=== PATIENT | male | born 1935 | race Caucasian/White ===

== ENCOUNTER → 2018-01-20 14:05 | Outpatient (CLI) | payer MEDICARE, OTHER, SELFPAY ==
[2018-01-20 14:44] LABS: Blood Urea Nitrogen 24 mg/dL (9-20); Calcium 9.1 mg/dL (8.4-10.2); Carbon Dioxide 34 mmol/L (22-32); Chloride 104 mmol/L (98-107); Estimated Glomerular Filt Rate > 60.0 mL/min (>60); Glucose 103 mg/dL (80-110); HEMOLYSIS < 15 (0-50); Potassium 4.6 mmol/L (3.4-5.1); Sodium 146 mmol/L (137-145)
== END ==
PROVIDERS: PCP Family Medicine; Visit Provider Internal Medicine Cardiovascular Disease
DX: I25.5 Ischemic cardiomyopathy (principal)
CPT/HCPCS: 36415; 80048

== ENCOUNTER → 2018-11-22 11:10 | Outpatient (CLI) | payer MEDICARE, OTHER, SELFPAY ==
[2018-11-22 12:17] LABS: Hematocrit 43.6 % (41-53); Hemoglobin 14.7 g/dL (13.5-17.5); Mean Corpuscular HGB Conc 33.8 % (30-36); Mean Corpuscular Hemoglobin 30.5 PG (26-34); Mean Corpuscular Volume 90.3 fL (80-100); Platelet Count 175 X10^3/uL (150-400); Red Blood Cell Count 4.83 X10^6/uL (4.5-5.9); Red Cell Distribution Width 14.8 % (11.6-14.8); White Blood Cell Count 6.4 X10^3/uL (4.5-11.0)
[2018-11-22 12:30] LABS: Alanine Aminotransferase 20 IU/L (21-72); Albumin 4.5 g/dL (3.5-5.0); Albumin Globulin Ratio 1.4 (1.0-2.8); Alkaline Phosphatase 66 U/L (38-126); Aspartate Aminotransferase 66 IU/L (17-59); BUN Creatinine Ratio 22.7 (6-22); Blood Urea Nitrogen 25 mg/dL (9-20); Calcium 9.3 mg/dL (8.4-10.2); Carbon Dioxide 33 mmol/L (22-32); Chloride 102 mmol/L (98-107); Cholesterol 118 mg/dL (140-199); Estimated Glomerular Filt Rate > 60.0 mL/min (>60); Globulin 3.2 g/dL (1.7-4.1); Glucose 90 mg/dL (80-110); HDL Cholesterol 34 mg/dL (40-60); HEMOLYSIS 36 (0-50); LDL Cholesterol Calculated 63 mg/dL (<100); Sodium 143 mmol/L (137-145); Total Protein 7.7 g/dL (6.3-8.2); Triglycerides 107 mg/dL (35-150)
[2018-11-22 12:32] LABS: Potassium 5.8 mmol/L (3.4-5.1)
[2018-11-22 13:03] LABS: Thyroid Stimulating Hormone 3.37 uIU/mL (0.47-4.68)
[2018-11-22 15:58] LABS: Neutrophils Absolute Manual 3520 /uL (3000-5900); Total Cells Counted 100
[2018-11-22 15:59] LABS: RBC Morphology Normal Morphology
== END ==
PROVIDERS: PCP Family Medicine; Visit Provider Family Medicine
DX: M79.604 Pain in right leg (principal); G62.9 Polyneuropathy, unspecified; M79.605 Pain in left leg; Z13.220 Encounter for screening for lipoid disorders; Z13.29 Encounter for screening for other suspected endocrine disorder
CPT/HCPCS: 36415; 80053; 80061; 84443; 85025

== ENCOUNTER → 2018-11-29 10:35 | Outpatient (CLI) | payer MEDICARE, OTHER, SELFPAY ==
--- NOTE | 2018-11-29 10:40 | DI.US.S_ITS ---
PROCEDURE: US ARTERIAL DUPLEX LE BI INDICATIONS: BILATERAL LEG PAIN, NEUROPATHY TECHNIQUE: Color and pulse Doppler interrogation was performed of both lower extremity arterial systems, with image documentation. COMPARISON: None. FINDINGS: Right lower extremity: Common femoral artery: 153 cm/sec, with biphasic flow. Deep femoral artery: 103 cm/sec, with biphasic flow. Proximal superficial femoral artery: 81 cm/sec, with triphasic flow. Mid superficial femoral artery: 137 cm/sec, with triphasic flow. Distal superficial femoral artery: 56 cm/sec, with triphasic flow. Popliteal artery: 53 cm/sec, with triphasic flow. Posterior tibial artery: 419 cm/sec, with monophasic flow. Anterior tibial artery/dorsalis pedis: 57 cm/sec, with monophasic flow. Jamil-scale imaging description: Moderate scattered plaque. Left lower extremity: Common femoral artery: 111 cm/sec, with biphasic flow. Deep femoral artery: 81 cm/sec, with biphasic flow. Proximal superficial femoral artery: 79 cm/sec, with biphasic flow. Mid superficial femoral artery: 94 cm/sec, with biphasic flow. Distal superficial femoral artery: 87 cm/sec, with biphasic flow. Popliteal artery: 390 cm/sec, with biphasic flow. Posterior tibial artery: 183 cm/sec, with biphasic flow. Anterior tibial artery/dorsalis pedis: 46 cm/sec, with monophasic flow. Jamil-scale imaging description: Moderate scattered plaque. IMPRESSION: 1. 20-49% stenosis involving the midright superficial femoral artery. 2. 50-90% stenosis involving the mid right posterior tibial artery 3. 50-99% stenosis involving the distal left popliteal artery near the trifurcation. Dictated by: Domenic Menezes [facility] Interpreted: Jose Arriola MD on 11/29/2018 at 13:45 Approved by: Jose Arriola M.D. on 11/29/2018 at 16:34
== END ==
PROVIDERS: PCP Family Medicine; Visit Provider Family Medicine
DX: I70.201 Unspecified atherosclerosis of native arteries of extremities, right leg (principal); I70.202 Unspecified atherosclerosis of native arteries of extremities, left leg
CPT/HCPCS: 93925

== ENCOUNTER → 2018-12-11 12:06 | Outpatient (CLI) | payer MEDICARE, OTHER, SELFPAY ==
[2018-12-11 13:01] LABS: Blood Urea Nitrogen 27 mg/dL (9-20); Calcium 9.5 mg/dL (8.4-10.2); Carbon Dioxide 34 mmol/L (22-32); Chloride 103 mmol/L (98-107); Estimated Glomerular Filt Rate > 60.0 mL/min (>60); Glucose 97 mg/dL (80-110); HEMOLYSIS < 15 (0-50); Potassium 4.9 mmol/L (3.4-5.1); Sodium 147 mmol/L (137-145)
== END ==
PROVIDERS: PCP Family Medicine; Visit Provider Family Medicine
DX: E87.5 Hyperkalemia (principal)
CPT/HCPCS: 36415; 80048

== ENCOUNTER → 2019-01-01 11:19 | Outpatient (CLI) | payer MEDICARE, OTHER, SELFPAY ==
[2019-01-01 12:57] LABS: Blood Urea Nitrogen 25 mg/dL (9-20); Calcium 9.5 mg/dL (8.4-10.2); Carbon Dioxide 35 mmol/L (22-32); Chloride 100 mmol/L (98-107); Estimated Glomerular Filt Rate > 60.0 mL/min (>60); Glucose 100 mg/dL (80-110); HEMOLYSIS 28 (0-50); Potassium 4.7 mmol/L (3.4-5.1); Sodium 145 mmol/L (137-145)
== END ==
PROVIDERS: PCP Family Medicine; Visit Provider Hospitalist
DX: I25.5 Ischemic cardiomyopathy (principal); I47.2 Ventricular tachycardia; I25.10 Atherosclerotic heart disease of native coronary artery without angina pectoris
CPT/HCPCS: 36415; 80048

== ENCOUNTER → 2019-04-09 11:43 | Outpatient (CLI) | payer MEDICARE, OTHER, SELFPAY ==
--- NOTE | 2019-04-09 11:45 | DI.US.S_ITS ---
PROCEDURE: US PERIPH VENOUS LOW EXTREM RT INDICATIONS: R LEG SWELLING TECHNIQUE: Real-time imaging, as well as color and pulse Doppler interrogation, were performed of the lower extremity deep veins from the inguinal ligament to the popliteal fossa. COMPARISON: None. FINDINGS: The common femoral, femoral and popliteal veins are normally compressible, and free of intraluminal thrombus. Color and pulse Doppler demonstrate normal phasic intraluminal flow. There is normal augmentation response to distal compression maneuver. The greater saphenous vein not well seen. Right groin fluid collection measuring 6.6 x 5.3 x 11.3 cm, estimated volume of 205 cc. No surrounding hyperemia identified. IMPRESSION: 1. No right lower extremity DVT. 2. Large right groin fluid collection. Etiology uncertain. Dictated by: Dipak Mijares M.D. on 04/09/2019 at 13:43 Approved by: Dipak Mijares M.D. on 04/09/2019 at 13:48
== END ==
PROVIDERS: PCP Family Medicine; Visit Provider Family Medicine
DX: I73.9 Peripheral vascular disease, unspecified (principal); L03.115 Cellulitis of right lower limb; M79.89 Other specified soft tissue disorders
CPT/HCPCS: 93971

== ENCOUNTER → 2019-04-10 12:00 | Outpatient (CLI) | payer MEDICARE, OTHER, SELFPAY ==
[2019-04-10 12:35] LABS: BUN Creatinine Ratio 25.6 (6-22); Blood Urea Nitrogen 23 mg/dL (9-20); Estimated Glomerular Filt Rate > 60.0 mL/min (>60)
--- NOTE | 2019-04-10 13:09 | DI.CT.S_ITS ---
PROCEDURE: CT ABDOMEN PELVIS W CON INDICATIONS: Right groin pain, leg swelling. Rule Out: Inguinal Hernia, Ascites, Large Lymph Node TECHNIQUE: After the administration of intravenous contrast, 5 mm thick sections acquired from the diaphragm to the symphysis. 5 mm coronal and sagittal reformats were acquired. For radiation dose reduction, the following was used: automated exposure control, adjustment of mA and/or kV according to patient size. COMPARISON: [facility], , US PERIP VENOUS LOW EXTREM RT, 04/09/2019, 12:18. FINDINGS: Image quality: There is metallic streak artifact from patient's bilateral hip prostheses. ABDOMEN: There is mild dependent atelectasis. A small hiatal hernia is present. Heart size is mildly enlarged. An AICD lead is noted extending into the right ventricle. Solid organs: Evaluation of the liver demonstrates no focal hepatic lesions. There are a few small dependent filling defects within the gallbladder compatible with gallstones. No gallbladder wall thickening or pericholecystic fluid. Biliary system is non-dilated. Within the body of the pancreas, there is a small oval cystic lesion measuring approximately 7 mm on series 2 image 20. No peripancreatic fat stranding or fluid collections. No main pancreatic duct dilatation. The spleen is normal in size. No adrenal nodules. There is moderate left hydronephrosis with a transition at the ureteropelvic junction. The left ureter is nondistended. No right hydronephrosis. Bilateral renal cysts are demonstrated. Peritoneum and bowel: Bowel loops demonstrate normal wall thickness and caliber. The aorta is normal in caliber. There is colonic diverticulosis. There is mild segmental wall thickening in the sigmoid colon suggestive of a mild colitis possibly related to diverticulitis. No free fluid or free air with evaluation in the pelvis limited by streak artifact. Nodes and vessels: No retroperitoneal or mesenteric adenopathy by size criteria. Aorta and inferior vena cava are normal in size. Evaluation of the venous structures is limited due to the phase of imaging but there is heterogeneity within the right common and superficial femoral veins. Miscellaneous: There is a septated loculated fluid collection in the right hemipelvis tracking along the iliopsoas tendon measuring up to approximately 7.6 x 5.3 x 11.7 cm. Findings compatible with iliopsoas bursitis. No ventral hernias. PELVIS: Genitourinary: Bladder wall thickness is normal. Miscellaneous: No inguinal hernias or adenopathy. Bones: No suspicious bony lesions. No vertebral body compression fractures. Bilateral hip prostheses are demonstrated limiting evaluation T2 streak artifact. There is a nonspecific right hip joint effusion. IMPRESSION: 1. Large loculated fluid collection in the right hemipelvis tracking along the iliopsoas tendon compatible with iliopsoas bursitis. 2. Heterogeneous appearance of the right common and superficial femoral veins. No evidence of deep venous thrombosis identified on the recent ultrasound. Recommend clinical followup. 3. Bilateral hip prostheses limiting evaluation due to streak artifact. A nonspecific right hip joint effusion is noted. 4. Colonic diverticulosis. Mild segmental wall thickening in the sigmoid colon is suggestive of a mild colitis and may reflect sequelae of diverticulitis. 5. Cholelithiasis without CT evidence of cholecystitis. 6. Moderate left hydronephrosis with a transition at the UPJ. No associated obstructing stone identified. 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 Dictated by: Miguel Guzman M.D. on 04/10/2019 at 13:29 Approved by: Miguel Guzman M.D. on 04/10/2019 at 13:44
== END ==
PROVIDERS: PCP Family Medicine; Visit Provider Family Medicine
DX: R60.0 Localized edema (principal); L03.115 Cellulitis of right lower limb; M79.606 Pain in leg, unspecified; I87.2 Venous insufficiency (chronic) (peripheral); N28.1 Cyst of kidney, acquired; N13.30 Unspecified hydronephrosis; K57.90 Diverticulosis of intestine, part unspecified, without perforation or abscess without bleeding; M25.451 Effusion, right hip; K80.20 Calculus of gallbladder without cholecystitis without obstruction; Z96.643 Presence of artificial hip joint, bilateral
CPT/HCPCS: 36415; 74177; 82565; 84520; Q9967

== ENCOUNTER → 2019-04-13 09:47 | Outpatient (CLI) | payer MEDICARE, OTHER, SELFPAY ==
[2019-04-13 10:25] LABS: Add Manual Diff / Slide Review NO; Basophils Absolute Auto 0 /uL (0-100); Basophils Percent Auto 0.6 % (0-2); Eosinophils Absolute Auto 300 /uL (0-450); Eosinophils Percent Auto 3.9 % (2-4); Hematocrit 43.7 % (41-53); Hemoglobin 14.9 g/dL (13.5-17.5); Lymphocytes Absolute Auto 1400 /uL (1100-4500); Mean Corpuscular Hemoglobin 30.6 PG (26-34); Mean Corpuscular Volume 90.1 fL (80-100); Monocytes Absolute Auto 700 /uL (0-900); Monocytes Percent Auto 9.4 % (3-14); Neutrophils Absolute Auto 5100 /uL (1500-7000); Neutrophils Percent Auto 68.1 % (50-75); Platelet Count 197 X10^3/uL (150-400); Red Blood Cell Count 4.86 X10^6/uL (4.5-5.9); Red Cell Distribution Width 14.4 % (11.6-14.8); White Blood Cell Count 7.5 X10^3/uL (4.5-11.0)
[2019-04-13 10:53] LABS: Erythrocyte Sedimentation Rate 18 MM/HR (0-15)
[2019-04-13 11:06] LABS: C-Reactive Protein Quant < 0.5 mg/dL (<1.0)
[2019-04-15 16:01] LABS: Chromium, Plasma 1.9 mcg/L (< 1.3)
== END ==
PROVIDERS: PCP Family Medicine; Visit Provider Orthopaedic Surgery
DX: Z96.643 Presence of artificial hip joint, bilateral (principal)
CPT/HCPCS: 36415; 82495; 83018; 85025; 85651; 86140

== ENCOUNTER → 2019-05-14 10:31 | Outpatient (CLI) | payer MEDICARE, OTHER, SELFPAY ==
[2019-05-14 10:48] LABS: Bacteria Urine None Seen; RBC Urine None Seen (0-5/HPF); WBC Urine None Seen (0-5/HPF)
[2019-05-14 11:13] LABS: Appearance Urine UA CLEAR; Bilirubin Urine UA NEGATIVE (NEGATIVE); Color Urine UA YELLOW; Glucose Urine UA NEGATIVE (Negative); Ketones Urine UA NEGATIVE (NEGATIVE); Leukocyte Esterase Urine UA NEGATIVE (NEGATIVE); Nitrite Urine UA NEGATIVE (Negative); Occult Blood Urine UA NEGATIVE (Negative); Protein Urine UA NEGATIVE (Negative); Urobilinogen Urine UA 0.2 E.U./dL (0.2)
[2019-05-14 11:15] LABS: Add Manual Diff / Slide Review NO; Basophils Absolute Auto 100 /uL (0-100); Basophils Percent Auto 0.8 % (0-2); Eosinophils Absolute Auto 300 /uL (0-450); Eosinophils Percent Auto 3.9 % (2-4); Hematocrit 41.7 % (41-53); Hemoglobin 13.8 g/dL (13.5-17.5); Lymphocytes Absolute Auto 1400 /uL (1100-4500); Lymphocytes Percent Auto 20.2 % (25-40); Mean Corpuscular HGB Conc 33.2 % (30-36); Mean Corpuscular Hemoglobin 29.8 PG (26-34); Mean Corpuscular Volume 89.6 fL (80-100); Monocytes Absolute Auto 700 /uL (0-900); Monocytes Percent Auto 10.7 % (3-14); Neutrophils Absolute Auto 4400 /uL (1500-7000); Neutrophils Percent Auto 64.4 % (50-75); Platelet Count 310 X10^3/uL (150-400); Red Blood Cell Count 4.65 X10^6/uL (4.5-5.9); Red Cell Distribution Width 14.1 % (11.6-14.8); White Blood Cell Count 6.8 X10^3/uL (4.5-11.0)
[2019-05-14 11:21] LABS: Culture Indicated Urine Cult Not Indicated; Urine Comments Microscopic Normal
[2019-05-14 11:29] LABS: BUN Creatinine Ratio 24.4 (6-22); Blood Urea Nitrogen 22 mg/dL (9-20); Calcium 9.3 mg/dL (8.4-10.2); Carbon Dioxide 30 mmol/L (22-32); Chloride 103 mmol/L (98-107); Estimated Glomerular Filt Rate > 60.0 mL/min (>60); Glucose 107 mg/dL (80-110); HEMOLYSIS < 15 (0-50); Sodium 142 mmol/L (137-145)
== END ==
PROVIDERS: PCP Family Medicine; Referring Provider Orthopaedic Surgery; Visit Provider Orthopaedic Surgery
DX: Z01.818 Encounter for other preprocedural examination (principal); Z01.812 Encounter for preprocedural laboratory examination; R73.9 Hyperglycemia, unspecified; N39.0 Urinary tract infection, site not specified
CPT/HCPCS: 36415; 80048; 81001; 83036; 85025; 93005

== ENCOUNTER 2019-05-25 05:54 | Inpatient (IN) | payer MEDICARE, OTHER, SELFPAY ==
[2019-05-22 14:22] VITALS: BMI 25.7
[2019-05-25] VITALS (13 sets, daily range): BP systolic 117–174; BP diastolic 47–80; PULSE 45–63; RESP 12–16; TEMP 35.7–36.6; O2SAT 94–99; BMI 24.1
--- NOTE | 2019-05-25 | PATH_ITS ---
[facility] Accession Number: [id number] . 01 Material submitted: . PART A: hip - RIGHT HIP, SOFT TISSUE PART B: body - EXPLANTS FROM RIGHT HIP . 01 Clinical history: . B: *DO NOT DISPOSE* . 02 Diagnosis: A. Right Hip, Soft Tissue, Excision: Fibrous tissue and skeletal muscle with mild chronic inflammation. No active inflammation or foreign material identified. . B. Explants From Right Hip, Removal: Explanted hardware. Gross description only. MRV 05/29/2019 1333 Local . 02 Electronically signed: . Malcom Marr MD, PhD, Pathologist NPI- [id number] . 01 Gross description: . (A) Received in formalin, labeled right hip, soft tissue, is a piece of kinsey-duckworth, rubbery soft tissue (3.5 x 3.5 x 0.5 cm). The resection margin is inked blue. Prior Authorization Nurse serial section submitted in cassette A1. (B) Received in formalin, labeled right hip explant, do not dispose, is a silver-colored metal ball and socket joint replacement (5.0 x 5.0 x 4.0 cm) with the following numbers imprinted on it: [id number], [id number], 40 x 60, [id number], and a partially scratched-out number 12/scratched-out numbers followed by 0 plus 50. No tissue is present; therefore, no cassettes are submitted. The specimen is for gross description only. ([id number]) /FRAron 05/26/2019 0838 Local . 02 Pathologist provided ICD-10: Z96.641, T84.010A . 02 CPT . 544835, 453039 Performed at: 01 [facility] [address] [place] [address], [place], [place] [id number] MD Miguel Sales MD Phone: [phone] Performed at: [address] [facility] [id number] [place], [place] [id number] MD Tatum Manzano MD Phone: [phone]
--- NOTE | 2019-05-25 06:59 | DI.RAD.S_ITS ---
PROCEDURE: XR HIP W PEL IF DONE RT 2V INDICATIONS: post op TECHNIQUE: 2 views of the hip were acquired. COMPARISON: [facility], CR, XR PELVIS WITH BILATERAL LATERAL HIPS, 04/23/2019, 14:42. [facility], RF, HIP INJECTION, 05/04/2019, 14:44. [facility], CR, HIP 2V LEFT, 07/18/2009, 15:07. FINDINGS: Bones: No fractures or dislocations. No suspicious bony lesions. The visualized pelvic ring appears intact. Soft tissues: No suspicious soft tissue calcifications or masses. IMPRESSION: Normal alignment after bilateral total hip arthroplasty procedures, previously present bilaterally. Dictated by: Sameer Valdez M.D. on 05/25/2019 at 12:07 Approved by: Sameer Valdez M.D. on 05/25/2019 at 12:09
[2019-05-25] MEDS: ACETAMINOPHEN 325 MG TABLET 975 MG PO (07:10)
[2019-05-25] MEDS: CELECOXIB 200 MG CAPSULE PO (07:10)
[2019-05-25] MEDS: PREGABALIN 75 MG CAPSULE PO (07:10)
[2019-05-25] MEDS: VANCOMYCIN 1,000 MG/200 ML PIGGYBACK 200 MG IV (07:20)
[2019-05-25] MEDS: LACTATED RINGERS 1,000 ML 42 ML IV (07:28)
--- NOTE | 2019-05-25 07:50 | PM.PREOP ---
Pre-operative Note Interval Note History & Physical reviewed/Exam performed by Physician: Yes Changes to H&P: No
--- NOTE | 2019-05-25 07:51 | PM.OP.1 ---
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 Post-op diagnosis: same Procedure & Clinicians Procedure: Revision right total hip arthroplasty acetabular Same procedure as scheduled: Yes Indications: The patient has a history of a right total hip arthroplasty which was done back in 2008 with a metal on metal articulation. He has about a 6 month history of marked progressive increased swelling in the right leg and had a CT scan which showed a significant fluid collection anterior to his right hip. 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 The risks, benefits and alternatives to surgery were discussed with the patient prior to proceeding. Risks discussed included, but were not limited to, failure to relieve pain, leg length discrepancy, dislocation, stiffness, infection, nerve damage, deep venous thrombosis, pulmonary embolism, stroke, coma, heart attack, permanent paralysis and , as well as the potential need for eventual revision of the prosthetic. Surgeon: Neda Jackson [employer] Technician: Valorie Hansen Anesthesia Type: General and Spinal Operative Notes Findings: Significant slightly brownish stained fluid in the right hip, marked thickening of the synovium and significant synovial pseudo tuber anterior to the hip, no obvious significant destruction of the abductors, good stability, minimal trunnion wear Closure Type: primary Prosthetic devices, grafts, tissues, transplants, or devices: Depuy pedicle 60 x 40 mm polyethylene liner, ceramic 40 by 8.5 mm femoral head Applied: drain(s) Estimated Blood Loss (mL): 250 Blood products transfused: none Procedure in detail: The patient was seen in the pre-operative area, where the patient identified the right hip as the operative site and this was marked with my initials. The patient received pre-operative antibiotics and was taken to the operating room and placed on the operative table in the left lateral decubitus position after satisfactory anesthesia. A dispatcher refinery out was performed. The right leg was prepared from the ankle to the iliac crest with ChloroPrep in the usual fashion and draped through sterile drapes. The hip was approached through an approximately 20 cm incision centered over the greater trochanter and curving gently posteriorly as it went proximally. This was carried sharply to the fascia nancie, which was divided and retracted with a self retaining retractor. The trochanteric bursa was excised with care being taken to avoid the sciatic nerve, which was identified and protected throughout the case. The short external rotators were incised and the capsulomuscular flap was raised and tagged for later repair. The hip was dislocated. There was a large fluid collection in the right hip. There was marked thickening of the synovium and inflammatory tissue in the capsule. Fluid was sent for Gram stain culture and sensitivity and a cell count. The femoral head was removed with a tamp. There was minimal wear along the trunnion. The trunnion was carefully cleaned. There was no evidence of femoral loosening. Retractors were placed around the femur. Capsule and inflammatory tissue in pseudotumor was removed from around the femoral component as well as around the acetabulum. Retractors were placed to expose the acetabulum. The metal liner was loosened from the acetabular shell by impacting the shell. The liner was removed without difficulty. The acetabular shell was carefully checked was noted to be stable in the bone. The base of the acetabular liner was carefully cleaned. Anteriorly there was significant fluid which was carefully removed with a section as well as clamps 3 is to grab the lining of the pseudotumor and tissue was carefully removed from the anterior aspect of the acetabulum and sent for culture, PCR as well as pathology. A trial reduction with a neutral 40 x 60 liner and both +5 and a +8 5 head showed acceptable leg length, good range of motion no posterior impingement and The patient was stable in the position of sleep, of squatting, and could be put through a range of motion with 45 degrees internal rotation without dislocation. At 90 degrees flexion, internal rotation to 70 was possible before dislocation. This was felt to be satisfactory and the appropriate components were opened, and the trials were removed. The acetabular liner was impacted into position. A ceramic +8.5 head was selected and meticulously inserted. The hip was meticulously irrigated with normal saline. The acetabulum was cleared of all material and the hip relocated one final time. The capsulomuscular flap was then repaired to the greater trochanter though an awl hole using the tag sutures. The short external rotators were repaired with a nonabsorbable suture. A deep drain was placed and brought out anteriorly. Vancomycin powder was carefully placed both anteriorly in the pseudotumor as well as some in the joint and deep to the fascia as well as superficially. The fascia nancie was closed with Vicryl. The subcutaneous layer was closed with barbed sutures and SteriStrips. An Aquacel Ag dressing was applied and the patient was taken to recovery having tolerated the procedure well. Complications: none Post-operative Condition: stable Disposition: Acute Care Plan for aftercare: The patient will be maintained on a standard total hip replacement protocol with weight bearing as tolerated and posterior hip precautions. The patient will receive Aspirin and sequential compression devices for DVT prophylaxis. The patient will be discharged home when safe for the home environment.
--- NOTE | 2019-05-25 08:00 | SUR.PREOP ---
BUSINESS ANALYST: Pt's family took his clothes home as well as his cane.
[2019-05-25] MEDS: CEFAZOLIN 2 GM/100 ML FROZ.PIGGY IV ×3 (08:25→23:48)
--- NOTE | 2019-05-25 09:02 | SUR.OPER ---
Lateral on padded OR bed. Gel axillary roll. Arms secured on padded armboard with pillow supporting top arm. Padded hip positioner braces x4 - anterior and posterior chest and pelvis. Additional gel pad used anterior pelvis. Gel pad under bottom leg from knee to foot and secured with tape over sheet.
[2019-05-25] MEDS: BUPIVACAINE LIPOSOME 266 MG/20 ML VIAL INJ (09:22)
[2019-05-25] MEDS: TRANEXAMIC ACID 1,000 MG VIAL 1000 MG INJ ×2 (09:22→10:10)
[2019-05-25] MEDS: VANCOMYCIN 1,000 MG VIAL 1000 MG TOP (09:58)
[2019-05-25] MEDS: BUPIVACAINE 0.25% W/ EPI 30 ML VIAL 60 ML INJ (10:01)
[2019-05-25 10:37] LABS: Body Fluid Red Blood Cells 32691 /uL; Body Fluid Tot Nucleated Cells 3268 /uL
[2019-05-25 10:52] LABS: Body Fluid Appearance CLOUDY; Body Fluid Clotted? NO CLOTS PRESENT; Body Fluid Color BROWN; Mononuclear WBC Body Fluid 100 %; Polynuclear WBC Body Fluid 0 %
--- NOTE | 2019-05-25 12:27 | PC.NURSE ---
Pt to room from PACU via bed. Family at the bedside. Pt awake and oriented x 3. Pt oriented to room, call light, bed controls, and tv controls. SCD's on and running. HV intact and unclamped. Bed alarm on for safety and Pt agrees to call for assistance as needed and to not get up without assistance.
[2019-05-25] MEDS: IBUPROFEN 400 MG TABLET PO ×3 (12:34→20:33)
[2019-05-25] MEDS: LACTATED RINGERS 1,000 ML 125 ML IV ×2 (12:34→22:27)
[2019-05-25] MEDS: ACETAMINOPHEN 325 MG TABLET 650 MG PO ×2 (15:07→20:34)
--- NOTE | 2019-05-25 15:11 | PT.IIE ---
Current Diagnoses Broken internal right hip prosthesis, initial encounter (05/25/19) Presence of artificial hip joint, bilateral (05/25/19) Surgery Performed Operation Date: 05/25/19 07:45 Actual Procedures p Total Hip Arthroplasty Revision(Right) - Neda Jackson MD Surgical History (Last Updated 05/22/19 @ 14:35 by Samantha George RN) AICD (automatic cardioverter/defibrillator) present (Acute ~04/2012) History of carpal tunnel release (Resolved 01/2006) History of Mohs surgery for squamous cell carcinoma of skin (Resolved 2013) Hx of bilateral hip replacements (Resolved 2008) Hx of cardiac catheterization (Acute ~1996) Hx of cardiac catheterization (Acute 07/06/11) Hx of cataract surgery (Resolved) Hx of coronary artery bypass graft (Resolved) S/P CABG x 2 (Acute ~2011) Medical History (Last Updated 05/22/19 @ 14:35 by Samantha George RN) Actinic keratosis (Resolved) Atrial fibrillation (Resolved) Basal cell carcinoma (Resolved) Cardiomyopathy (Chronic) Carpal tunnel syndrome (Resolved) Cataracts, bilateral (Resolved) Coronary artery disease (Chronic) Cyst, nasal sinus (Resolved 1971) 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) Erectile dysfunction (Chronic) 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) Glaucoma (Acute) Heart murmur (Acute) History of placement of internal cardiac defibrillator (Resolved 04/2012) Hyperlipemia (Chronic) Hypertension (Chronic) Ischemic cardiomyopathy (Acute) Macular degeneration (Chronic) Myocardial infarction (Resolved 1996) Non-sustained ventricular tachycardia (Acute) Recurrent ventricular tachycardia (Acute) Squamous cell carcinoma (Resolved) Vitreous floaters of right eye (Chronic) Physical Therapy Inpatient Evaluation/Re-Eval M1 PT/OT-IP Prior Functional Status Start: 05/25/19 16:23 Freq: NEEDED Status: Active Protocol: Document 05/25/19 15:11 AB (Rec: 05/25/19 16:35 AB [id number]) Medical Review Prior Functional Status Medical History Reviewed No Communication able to make needs known but with slight confusion and has increase reaction time needed to complete tasks. Mobility and Gait pt stated that he is modified independent with all mobilities and ambulation using SPC Social History Household Members spouse Living Arrangements House Number of Floors (Floors) One Floor Number of Stairs To Enter/Railing? no steps to enter Home Environment High Toilet,Walk in Shower Home Equipment Front Wheel Walker,Four Wheel Walker,Straight Cane,Grab Bars In Shower M2 PT-IP Current Condition Start: 05/25/19 16:23 Freq: NEEDED Status: Active Protocol: Document 05/25/19 15:11 AB (Rec: 05/25/19 16:35 AB [id number]) Physical Therapy Current Condition Current Condition Evaluation Date 05/25/19 Treatment Diagnosis s/p R MONICA posterior approach; difficulty in walking Onset Date 05/25/2019 Precautions Posterior Hip Precautions No Hip Flexion > 90 degrees,No Hip Internal Rotation,No Hip Adduction Weight Bearing Status Weight Bearing Status Weight Bear as Tolerated M3 PT-IP Subjective Start: 05/25/19 16:23 Freq: NEEDED Status: Active Protocol: Document 05/25/19 15:11 AB (Rec: 05/25/19 16:35 AB [id number]) Subjective Physical Therapy Visit Type Type Initial Evaluation Visit Start Time 15:11 Visit Stop Time 16:00 Total Visit Minutes 49 Number of RN IV THERAPY Visits 0 Physical Therapy Visit Comments Patient Comments agreeable to do PT Therapy Pain Assessment Pain Present Pain Present Denied Pain M4 PT-IP Mobility and Gait Start: 05/25/19 16:23 Freq: NEEDED Status: Active Protocol: Document 05/25/19 15:11 AB (Rec: 05/25/19 16:35 AB [id number]) PT-Bed Mobility Assessment Supine to Sit Supine to Sit Moderate Assistance,1 Person Assistance Sit to Supine Sit to Supine Maximum Assistance,1 Person Assistance PT-Transfer Assessment Sit to and From Stand Sit to and from Stand Maximum Assistance,2 Person Assistance,Use of Upper Extremities Equipment Transfer Assistive Device Gait Belt,Front Wheeled Walker Orthotic/Prosthetic Devices or Brace: No Comments Mobility Comments reviewed R posterior hip precautions with pt. pt requires max cues to remember and to understand hip precautions. completed supine to sit mod A and max cues. stated that his RLE is numb but has chronic numbness on RLE. required max A x 2 for sit to stand. attempted stepping but pt with (+) R knee buckling despite stabilization provided. pt assisted back to sit down max A x 2 and max cues. completed sit to supine max A and max cues. postiioned in bed. call light and table placed within reach. Gait Assessment Comments Gait Comments unable at this time with R knee buckling PT-Balance Assessment Sitting Balance and Reactions Static Sitting Balance Ability Good Dynamic Sitting Balance Ability Good Standing Balance and Reactions Static Standing Balance Ability Poor Dynamic Standing Balance Ability Poor Device Used FWW M5 PT-IP Objective Assessments Start: 05/25/19 16:23 Freq: NEEDED Status: Active Protocol: Document 05/25/19 15:11 AB (Rec: 05/25/19 16:35 AB [id number]) Orientation Orientation/Cognition Level of Alertness Alert Orientation Name,Place,Situation Safety Awareness Decreased Safety Awareness Memory Description Short Term Impaired,Reiki Practitioner Impaired Gross Range of Motion Lower Extremity ROM Assessment Within Functional Limits Strength Lower Extremity Strength Assessment Bilaterally Impaired Comments Strength Comments RLE 3-/5 LLE: 3+/5 Sensation Assessment Sensation Sensation Description Numbness Comments Sensation Comments c/o RLE numbness but stated that he has chronic numbness prior to surgery M6 PT-IP Treatment Start: 05/25/19 16:23 Freq: NEEDED Status: Active Protocol: Document 05/25/19 15:11 AB (Rec: 05/25/19 16:35 AB [id number]) Physical Therapy Treatment Exercises Exercises Ankle Pumps,Quad Sets,Heel Slides Education Education Provided Precautions,Weight Bearing Status,Post-Op Packet,Safety M7 PT-IP Assessment and Plan Start: 05/25/19 16:23 Freq: NEEDED Status: Active Protocol: Document 05/25/19 15:11 AB (Rec: 05/25/19 16:35 AB [id number]) PT Summary Assessment and Plan Potential Rehabilitation Potential Fair Status of Condition at Evaluation Evolving Summary Impairments Pain,ROM,Strength,Balance, Coordination,Sensation,Tone, Cognition,Bed Mobility, Transfers,Gait,Activity Tolerance Assessment Summary pt requiring max A x 2 and max cues and unable to ambulate at this time. pt with (+) R knee buckling and unable to take a step for transfers using FWW. d/c plan depending on progress but at this time will require SNF rehab to improve strength, mobility and safety. pt requires max cues to recall hip precautions despite education provided. will continue to assess progress. Goals Bed Mobility Goal Standby Assistance Transfer Goal Contact Guard Assistance,Front Wheeled Walker Gait Goal Contact Guard Assistance,Front Wheel Walker Gait Distance 150 Days to Meet Goals 5 Frequency of Treatment Frequency Of Treatment Twice a Day Treatment Plan Physical Therapy Treatment Plan Bed Mobility Training,Transfer Training,Gait Training, Therapeutic Exercise,Balance Retraining,Post Op Education, Discharge Planning,Hot or Cold Pack,Neuromuscular Re-ed, Coordination Retraining,Manual Therapy Other Recommendations and Next Treatment transfers, ambulation when Focus appropriate Recommendations To Nursing Amount of Assist Needed 2 Person Assist,PT/OT Assist Only Discharge Recommendations PT Discharge Recommendations SNF Rehab Transportation Needs at Discharge Wheelchair/Cabulance
[2019-05-25] MEDS: ASPIRIN EC 81 MG TABLET PO (20:33)
[2019-05-25] MEDS: DOCUSATE 100 MG CAPSULE PO (20:33)
[2019-05-26] MEDS: IBUPROFEN 400 MG TABLET PO ×3 (01:12→10:03)
[2019-05-26 06:15] VITALS: BP 161/75; PULSE 67; RESP 18; TEMP 36.5; O2SAT 96
--- NOTE | 2019-05-26 06:24 | PC.NURSE ---
patient pulled out Hemovac drain at 0615. 4x4 gauze placed with tape.
[2019-05-26 06:49] LABS: Hematocrit 40.1 % (41-53); Hemoglobin 13.4 g/dL (13.5-17.5)
[2019-05-26 08:00] VITALS: BP 149/108; PULSE 62; RESP 18; TEMP 36.6; O2SAT 98
--- NOTE | 2019-05-26 09:38 | PT.IPTN ---
Current Diagnoses Broken internal right hip prosthesis, initial encounter (05/25/19) Presence of artificial hip joint, bilateral (05/25/19) Surgery Performed Operation Date: 05/25/19 07:45 Actual Procedures p Total Hip Arthroplasty Revision(Right) - Neda Jackson MD Physical Therapy Treatment Note M2 PT-IP Current Condition Start: 05/25/19 16:23 Freq: NEEDED Status: Active Protocol: Document 05/25/19 15:11 AB (Rec: 05/25/19 16:35 AB [id number]) Physical Therapy Current Condition Current Condition Evaluation Date 05/25/19 Treatment Diagnosis s/p R MONICA posterior approach; difficulty in walking Onset Date 05/25/2019 Precautions Posterior Hip Precautions No Hip Flexion > 90 degrees,No Hip Internal Rotation,No Hip Adduction Weight Bearing Status Weight Bearing Status Weight Bear as Tolerated M3 PT-IP Subjective Start: 05/25/19 16:23 Freq: NEEDED Status: Active Protocol: Document 05/26/19 09:38 CLB (Rec: 05/26/19 11:55 CLB [email or web address]) Subjective Physical Therapy Visit Type Type Treatment Note Visit Start Time 09:38 Visit Stop Time 10:10 Total Visit Minutes 32 Number of ARRANGING FUNERAL DIRECTOR Visits 1 Physical Therapy Visit Comments Patient Comments agreeable to do PT Therapy Pain Assessment Pain When Pain Assessed During Exercise Pain Present Pain Present Pain Reported Location Right Hip Intensity 1 Scale Used Numeric (1 - 10) M4 PT-IP Mobility and Gait Start: 05/25/19 16:23 Freq: NEEDED Status: Active Protocol: Document 05/26/19 09:38 CLB (Rec: 05/26/19 11:55 CLB [email or web address]) PT-Bed Mobility Assessment Supine to Sit Supine to Sit Minimal Assistance,1 Person Assistance PT-Transfer Assessment Sit to and From Stand Sit to and from Stand Contact Guard Assistance,1 Person Assistance,Use of Upper Extremities Equipment Transfer Assistive Device Gait Belt,Front Wheeled Walker Orthotic/Prosthetic Devices or Brace: No Transfers Transfer Destination Bed,Chair Transfer Technique ambulated with FWW Transfer Ability Level of Assist Contact Guard Assistance Comments Mobility Comments Pt recalled 2/3 hip precautions. Pt performed ther ex in bed. Pt able to perform all ther ex independently. Pt required Min A with bed mobilty as pt had a difficult time with upper body but was able to abd RLE out of the bed . Pt ambulated in coronel then went to chair. Pt left in chair with all needs within reach. Gait Assessment Gait Gait Assistance Required: Contact Guard Assist,1 Person Assist Distance (Feet) 100 Able to Maintain Weight Bearing Status Yes During Gait Assistive Devices Assistive Device Gait Belt,Front Wheeled Walker Orthotic/Prosthetic Devices or Brace: No Gait Deviations General Gait Pattern Antalgic,Decreased Stride Length,Decreased Feet Clearance Factors Limiting Gait Function Factors Limiting Gait Function Decreased Activity Tolerance, Decreased Sensation,Decreased Strength,Limited Range of Motion,Pain,Poor Balance,Poor Safety Awareness Comments Gait Comments Pt ambulated in coronel ~100ft with FWW/CGA with cues during turns to prevent hip IR. Pt able to bear weight through right leg using step-thru gait pattern. M5 PT-IP Objective Assessments Start: 05/25/19 16:23 Freq: NEEDED Status: Active Protocol: Document 05/25/19 15:11 AB (Rec: 05/25/19 16:35 AB [id number]) Orientation Orientation/Cognition Level of Alertness Alert Orientation Name,Place,Situation Safety Awareness Decreased Safety Awareness Memory Description Short Term Impaired,Usp Impaired Gross Range of Motion Lower Extremity ROM Assessment Within Functional Limits Strength Lower Extremity Strength Assessment Bilaterally Impaired Comments Strength Comments RLE 3-/5 LLE: 3+/5 Sensation Assessment Sensation Sensation Description Numbness Comments Sensation Comments c/o RLE numbness but stated that he has chronic numbness prior to surgery M6 PT-IP Treatment Start: 05/25/19 16:23 Freq: NEEDED Status: Active Protocol: Document 05/26/19 09:38 CLB (Rec: 05/26/19 11:55 CLB [email or web address]) Physical Therapy Treatment Exercises Exercises Ankle Pumps,Gluteal Sets,Quad Sets,Heel Slides,Supine Hip Abduction Education Education Provided Precautions,Weight Bearing Status,Post-Op Packet,Safety Other Treatments Other Treatment Performed pt recalled 2/3 hip precautions. M7 PT-IP Assessment and Plan Start: 05/25/19 16:23 Freq: NEEDED Status: Active Protocol: Document 05/26/19 09:38 CLB (Rec: 05/26/19 11:55 CLB [email or web address]) PT Summary Assessment and Plan Potential Rehabilitation Potential Fair Status of Condition at Evaluation Evolving Summary Impairments Pain,ROM,Strength,Balance, Coordination,Sensation,Tone, Cognition,Bed Mobility, Transfers,Gait,Activity Tolerance Progress Towards Goals Progressing Toward Goals Assessment Summary Pt improved with all mobility this PT session. Pt required Min A for bed mobility as he had difficulty maneuvering upper body OOB. Pt stood from bed requiring CGA remembering to put leg out per hip precaution. Pt ambulated ~100 ft requiring CGA. Overall pt is progressing towards goals but will require CG training with for bed mobility and stairs before discharge. Goals Bed Mobility Goal Standby Assistance Transfer Goal Contact Guard Assistance,Front Wheeled Walker Gait Goal Contact Guard Assistance,Front Wheel Walker Gait Distance 150 Days to Meet Goals 5 Frequency of Treatment Frequency Of Treatment Twice a Day Treatment Plan Physical Therapy Treatment Plan Bed Mobility Training,Transfer Training,Gait Training, Therapeutic Exercise,Balance Retraining,Post Op Education, Discharge Planning,Hot or Cold Pack,Neuromuscular Re-ed, Coordination Retraining,Manual Therapy Other Recommendations and Next Treatment CG training, gait, bed Focus mobility and stairs. Recommendations To Nursing Amount of Assist Needed 1 Person Assist Discharge Recommendations PT Discharge Recommendations Home with Assistance,Home Health,SNF Rehab Transportation Needs at Discharge Private Vehicle
[2019-05-26] MEDS: ACETAMINOPHEN 325 MG TABLET 650 MG PO (10:02)
[2019-05-26] MEDS: ISOSORBIDE MONONITRATE ER 30 MG TABLET PO (10:02)
[2019-05-26 10:03] VITALS: BP 149/108
[2019-05-26] MEDS: ATORVASTATIN 20 MG TABLET 80 MG PO (10:03)
[2019-05-26] MEDS: lisinopriL 10 MG TABLET PO (10:03)
[2019-05-26 10:04] VITALS: BP 149/108
[2019-05-26] MEDS: DOCUSATE 100 MG CAPSULE PO (10:04)
[2019-05-26] MEDS: METOPROLOL ER 50 MG TABLET 100 MG PO (10:04)
[2019-05-26] MEDS: MULTIVITAMIN 1 TABLET 1 TAB PO (10:04)
[2019-05-26] MEDS: ASPIRIN EC 81 MG TABLET PO (10:05)
[2019-05-26] MEDS: FUROSEMIDE 20 MG TABLET PO (10:05)
[2019-05-26] MEDS: TIMOLOL 0.5% OPHTH 1 DROPS EYE-BOTH (10:05)
--- NOTE | 2019-05-26 11:35 | CM.DANOTE ---
Addendum entered by Alisha Granados LPN 05/26/19 11:51: Met with pt and his as planned. Pt is up, dressed, items packed and both say they are looking forward to going home today. PT did see pt again this morning (no note yet available) but both say he did very well and pt says I never had any intention of going into [facility].. Pt has had [address] Jackson and both say they have all needed DME and feel very comfortable with what is needed in followup. Pt still has drain in place and this is expected to be removed before he goes home today. P: home setting and followup as per orthopedic clinic protocol. Original Note: Discharge Planning/Care Management DCP: assessment: case received, EMR reviewed. Discussed in Team Rounds with PT stating that the recommendation at this point if for a snf setting. A d/c to home setting is now noted by ortho JOSE Eugene if cleared by PT. Pt is an 84 year old male who admitted yesterday for a scheduled surgery: Dr. Jackson: surgeon. Admission status: INPT: confirmed by UR AYSE Quinteros. Payer: Medicare and [employer]. PT will see pt again today. Will check in with pt now for introduction of self and role and follow... CM Discharge Assessment Start: 05/26/19 11:33 Freq: Status: Active Protocol: Document 05/26/19 11:33 ITV (Rec: 05/26/19 11:34 ITV [id number]) Discharge Planning Assessment Advance Directives? Yes Advance Directives on File Yes History Provided By Medical Record Prior Living Arrangements House Household Members spouse Is patient alert and oriented? Yes Whiteboard Updated in Patient Room with Yes name and ext. # of Perfect Bind Machine Operator Review Status In Process Pre-Anesthesia Assessment Start: 05/22/19 14:22 Freq: Status: Active Protocol: Document 05/22/19 14:22 CAB (Rec: 05/22/19 14:54 CAB [id number]) Pre-Anesthesia Assessment Patient Information Reviewed Via Chart Review Diagnostic Results BMP/CMP,CBC,EKG,Urinalysis Comment Labs/EKG @ 05/14/19 Seen Specialist in Last 12 Months Yes Specialist Seen Rail Doweling Machine Operator,Orthopedist Primary Language Faroese Industrial Editor Required No Height 177.8 cm Weight 81.193 kg Body Mass Index (BMI) 25.7 Barriers to Learning None Other Aids No Anesthesia Review Requested Yes: Surgeon requested re: Cardiac Alcohol Intake Frequency Other: None Smoking Status Former smoker Pain Present Pain Reported Musculoskeletal Symptoms Abnormal Gait,Difficulty Walking,Joint Pain History of Falling (Recent or History of No ) Patient is completely paralyzed or No completely immobile Mental Status Oriented to own ability Is patient on oxygen? No Does patient have JUAREZ/SOB No Hx Sleep Apnea No Currently Taking a Beta [place] Yes: Carvedilol Hx Chest Pain No Hx SOB Yes Hx Syncope or Dizziness No Anti-Coagulant Therapy No Has a Rail Doweling Machine Operator Yes: Dr. Jiménez-last visit 04/13/19 Cardiac Testing No Hx Pacemaker/ICD Yes Comment Pt active, gym 2x/week. Cardiac records scanned to chart Urinary Catheter Present No Hx Urinary Self Catheterization No Diabetes No HgbA1C 6.0 Date 05/14/19 Presence of External or Internal Medical Yes: Bilat eye lens, Right hip Devices prosthesis, AICD Marital Status Lives With spouse Patient Discharge Plan Description Return Home Advance Directives? Yes Advance Directives on File Yes Power of Regulatory Affairs Director Yes
--- NOTE | 2019-05-26 12:39 | PC.NURSE ---
Pt discharged home in POV with and all belongings. RX for oxycodone 5mg and docusate. IV removed. Education provided on s/sx of stroke (sudden numbness, weakness, difficulty speaking, severe headache) and to call 911 with any onset. Instructions provided on hip precautions including weight bearing as tolerated, cover FALGUNI device for shower, call physician for excess drainage at surgical site or any increased redness, swelling, or pain, and any sudden onset of fever, chills, n/v. Pt stated no further questions or concerns. Verified by Amy TAVERA
--- NOTE | 2019-05-26 12:40 | PT-IP ANOTE ---
Pt up in chair dressed with RN ready to d/c pt, informed RN pt required CG training. After speaking with pt and they respectfully refused CG training stating they took pre-surgery class and do not need any further training feeling comfortable going home.
--- NOTE | 2019-05-26 14:11 | PM.PN.1 ---
Subjective Subjective Date Patient Seen: 05/26/19 Interval history: Patient is a 84 year old male who is POD#1 s/p revision of right MONICA acetabular component with Dr. Jackson. No acute events overnight, his drain was accidentally pulled during a transfer. His pain has been mild to moderate and controlled with Tylenol and Ibuprofen. He has mobilized about the room, pending PT. He has voided appropriately. He denies any chest pain, shortness of breath, nausea or vomiting. Exam Vital Signs (past 8 hours): - 05/26/19 06:15 05/26/19 08:00 05/26/19 10:03 Temperature 97.7 F 97.8 F Pulse Rate 67 62 Respiratory Rate 18 18 Blood Pressure 161/75 H 149/108 H 149/108 H Pulse Oximetry 96 98 05/26/19 10:04 Temperature Pulse Rate Respiratory Rate Blood Pressure 149/108 H Pulse Oximetry Oxygen Delivery Method Room Air Oxygen Flow Rate 0 Narrative Exam Narrative: 84 year old male resting in bed, alert and oriented in no acute distress. FALGUNI dressing in place over the right hip is CDI, on and operating. Patient able to flex and extend the hip and ankle. Calves soft, compressible. Palpalbe pedal pulse. Objective Labs Result Diagrams: 05/26/19 06:14 Labs: Laboratory Results - last 24 hr 05/26/19 06:14 Hgb 13.4 L Hct 40.1 L Assessment & Plan Assessment & Plan narrative: Patient is progressing well postoperatively. He will work with PT later today. continue ASA 81mg for DVT prophylaxis. Continue present pain control. Prescription of Oxycodone provided for severe post operative pain. Discharge to home later today pending PT. Quality VTE Deep Vein Thrombosis/Pulmonary Embolism Present on Admission: No
== END 2019-05-26 12:46 | disposition home or self-care (01) | DRG 467 ==
PROVIDERS: Admitting Provider Orthopaedic Surgery; PCP Nurse Practitioner Family; Referring Provider Family Medicine; Visit Provider Orthopaedic Surgery
PROC: 0SRA00Z Replacement of Right Hip Joint, Acetabular Surface with Polyethylene Synthetic Substitute, Open Approach (ICD-10-PCS; principal; 2019-05-25 07:45)
DX: T84.010A Broken internal right hip prosthesis, initial encounter (principal); I47.2 Ventricular tachycardia; I50.22 Chronic systolic (congestive) heart failure; I11.0 Hypertensive heart disease with heart failure; Z96.643 Presence of artificial hip joint, bilateral; I25.10 Atherosclerotic heart disease of native coronary artery without angina pectoris; I25.5 Ischemic cardiomyopathy; I48.91 Unspecified atrial fibrillation; Z95.1 Presence of aortocoronary bypass graft; Z95.810 Presence of automatic (implantable) cardiac defibrillator
CPT/HCPCS: 36415; 73502; 85014; 85018; 87070; 87075; 87176; 87205; 87801; 89051; 97110; 97116; 97162; 97530; C1776; C9290; J0171; J0690; J2250; J2405; J2704; J3010

== ENCOUNTER → 2019-07-23 11:03 | Outpatient (CLI) | payer MEDICARE, OTHER, SELFPAY ==
[2019-05-25 12:16] VITALS: BMI 24.1
[2019-07-23 12:04] LABS: Alanine Aminotransferase 16 IU/L (<50); Albumin 4.1 g/dL (3.5-5.0); Albumin Globulin Ratio 1.2 (1.0-2.8); Alkaline Phosphatase 101 U/L (38-126); Aspartate Aminotransferase 69 IU/L (17-59); BUN Creatinine Ratio 23.8 (6-22); Bilirubin Total 0.5 mg/dL (0.2-1.3); Blood Urea Nitrogen 24 mg/dL (9-20); Calcium 9.5 mg/dL (8.4-10.2); Carbon Dioxide 32 mmol/L (22-32); Chloride 104 mmol/L (98-107); Estimated Glomerular Filt Rate > 60.0 mL/min (>60); Globulin 3.4 g/dL (1.7-4.1); Glucose 111 mg/dL (80-110); HEMOLYSIS < 15 (0-50); Potassium 5.2 mmol/L (3.4-5.1); Sodium 142 mmol/L (137-145); Total Protein 7.5 g/dL (6.3-8.2)
== END ==
PROVIDERS: PCP Nurse Practitioner Family; Referring Provider Physician Assistant Medical; Visit Provider Physician Assistant Medical
DX: I25.5 Ischemic cardiomyopathy (principal)
CPT/HCPCS: 36415; 80053

== ENCOUNTER → 2019-08-30 11:47 | Outpatient (CLI) | payer MEDICARE, OTHER, SELFPAY ==
[2019-05-25 12:16] VITALS: BMI 24.1
[2019-08-30 13:19] LABS: BUN Creatinine Ratio 23.2 (6-22); Blood Urea Nitrogen 23 mg/dL (9-20); Calcium 9.2 mg/dL (8.4-10.2); Carbon Dioxide 32 mmol/L (22-32); Chloride 102 mmol/L (98-107); Estimated Glomerular Filt Rate > 60.0 mL/min (>60); Glucose 99 mg/dL (80-110); HEMOLYSIS < 15 (0-50); Potassium 4.2 mmol/L (3.4-5.1); Sodium 142 mmol/L (137-145)
== END ==
PROVIDERS: PCP Nurse Practitioner Family; Referring Provider Hospitalist; Visit Provider Hospitalist
DX: I10 Essential (primary) hypertension (principal)
CPT/HCPCS: 36415; 80048

== ENCOUNTER → 2019-10-31 13:13 | Outpatient (CLI) | payer MEDICARE, OTHER, SELFPAY ==
[2019-05-25 12:16] VITALS: BMI 24.1
[2019-10-31 14:47] LABS: BUN Creatinine Ratio 29.5 (6-22); Blood Urea Nitrogen 28 mg/dL (9-20); Calcium 9.3 mg/dL (8.4-10.2); Carbon Dioxide 34 mmol/L (22-32); Chloride 102 mmol/L (98-107); Estimated Glomerular Filt Rate > 60.0 mL/min (>60); Glucose 90 mg/dL (80-110); HEMOLYSIS < 15 (0-50); Magnesium 2.3 mg/dL (1.6-2.3); Potassium 4.3 mmol/L (3.4-5.1); Sodium 140 mmol/L (137-145)
== END ==
PROVIDERS: PCP Nurse Practitioner Family; Referring Provider Hospitalist; Visit Provider Hospitalist
DX: I25.5 Ischemic cardiomyopathy (principal)
CPT/HCPCS: 36415; 80048; 83735

== ENCOUNTER 2019-11-01 14:20 | Outpatient (CLI) | payer MEDICARE, OTHER, SELFPAY ==
[2019-05-25 12:16] VITALS: BMI 24.1
== END 2019-11-01 16:08 | disposition home or self-care (01) ==
PROVIDERS: PCP Nurse Practitioner Family; Referring Provider Nurse Practitioner Family; Visit Provider Nurse Practitioner Family
DX: I73.9 Peripheral vascular disease, unspecified (principal); G62.9 Polyneuropathy, unspecified
CPT/HCPCS: 95886; 95910

== ENCOUNTER → 2019-11-15 12:39 | Outpatient (CLI) | payer MEDICARE, OTHER, SELFPAY ==
[2019-05-25 12:16] VITALS: BMI 24.1
[2019-11-15 13:46] LABS: C-Reactive Protein Quant < 0.5 mg/dL (<1.0)
[2019-11-15 14:07] LABS: Erythrocyte Sedimentation Rate 6 MM/HR (0-15)
[2019-11-15 14:47] LABS: Folate > 20.0 ng/mL (2.76-20.0); Vitamin B12 693 pg/mL (239-931)
[2019-11-17 15:08] LABS: ANA Screen, IFA Negative (.)
[2019-11-20 08:41] LABS: Vitamin B1 199.1 nmol/L (66.5-200.0)
== END ==
PROVIDERS: PCP Nurse Practitioner Family; Referring Provider Nurse Practitioner Family; Visit Provider Nurse Practitioner Family
DX: G62.9 Polyneuropathy, unspecified (principal)
CPT/HCPCS: 36415; 82607; 82746; 84425; 85651; 86038; 86140

== ENCOUNTER → 2019-11-22 15:29 | Outpatient (CLI) | payer MEDICARE, OTHER, SELFPAY ==
[2019-05-25 12:16] VITALS: BMI 24.1
[2019-11-22 18:47] LABS: TSH w/ Reflex to FT4 3.32 uIU/mL (0.47-4.68)
[2019-11-26 13:10] LABS: Albumin 3.9 g/dL (2.9-4.4); Alpha-1-Globulin 0.2 g/dL (0.0-0.4); Alpha-2-Globulin 0.7 g/dL (0.4-1.0); Gamma Globulin 1.1 g/dL (0.4-1.8); Protein, Total 6.9 g/dL (6.0-8.5)
== END ==
PROVIDERS: PCP Nurse Practitioner Family; Referring Provider Nurse Practitioner Family; Visit Provider Nurse Practitioner Family
DX: G62.9 Polyneuropathy, unspecified (principal)
CPT/HCPCS: 36415; 84155; 84165; 84443

== ENCOUNTER → 2020-02-09 11:30 | Outpatient (CLI) | payer MEDICARE, OTHER, SELFPAY ==
[2019-05-25 12:16] VITALS: BMI 24.1
[2020-02-09 12:58] LABS: Cholesterol 124 mg/dL (140-199); HDL Cholesterol 34 mg/dL (40-60); LDL Cholesterol Calculated 69 mg/dL (<100); Triglycerides 103 mg/dL (35-150)
== END ==
PROVIDERS: PCP Nurse Practitioner Family; Referring Provider Nurse Practitioner Family; Visit Provider Nurse Practitioner Family
DX: E78.5 Hyperlipidemia, unspecified (principal)
CPT/HCPCS: 36415; 80061

== ENCOUNTER → 2020-03-25 11:15 | Outpatient (CLI) | payer MEDICARE, OTHER, SELFPAY ==
[2019-05-25 12:16] VITALS: BMI 24.1
== END ==
PROVIDERS: PCP Nurse Practitioner Family; Referring Provider Orthopaedic Surgery; Visit Provider Orthopaedic Surgery
DX: Z96.643 Presence of artificial hip joint, bilateral (principal)
CPT/HCPCS: 36415

== ENCOUNTER → 2020-09-12 11:26 | Outpatient (CLI) | payer MEDICARE, OTHER, SELFPAY ==
[2019-05-25 12:16] VITALS: BMI 24.1
[2020-09-12 12:32] LABS: Alanine Aminotransferase 25 IU/L (<50); Albumin 3.8 g/dL (3.5-5.0); Albumin Globulin Ratio 1.3 (1.0-2.8); Alkaline Phosphatase 92 U/L (38-126); Aspartate Aminotransferase 75 IU/L (17-59); BUN Creatinine Ratio 23.6 (6-22); Bilirubin Total 1.1 mg/dL (0.2-1.3); Blood Urea Nitrogen 25 mg/dL (9-20); Calcium 9.1 mg/dL (8.4-10.2); Carbon Dioxide 33 mmol/L (22-32); Chloride 103 mmol/L (98-107); Cholesterol 117 mg/dL (140-199); Estimated Glomerular Filt Rate > 60.0 mL/min (>60); Globulin 2.9 g/dL (1.7-4.1); Glucose 90 mg/dL (80-110); HDL Cholesterol 34 mg/dL (40-60); HEMOLYSIS < 15 (0-50); LDL Cholesterol Calculated 66 mg/dL (<100); Potassium 4.4 mmol/L (3.4-5.1); Sodium 141 mmol/L (137-145); Total Protein 6.7 g/dL (6.3-8.2); Triglycerides 86 mg/dL (35-150)
== END ==
PROVIDERS: PCP Nurse Practitioner Family; Referring Provider Internal Medicine Cardiovascular Disease; Visit Provider Internal Medicine Cardiovascular Disease
DX: I10 Essential (primary) hypertension (principal)
CPT/HCPCS: 36415; 80053; 80061

== ENCOUNTER → 2020-10-02 12:11 | Outpatient (CLI) | payer MEDICARE, OTHER, SELFPAY ==
[2019-05-25 12:16] VITALS: BMI 24.1
[2020-10-02 13:45] LABS: BUN Creatinine Ratio 31.3 (6-22); Blood Urea Nitrogen 30 mg/dL (9-20); Calcium 9.4 mg/dL (8.4-10.2); Carbon Dioxide 34 mmol/L (22-32); Chloride 105 mmol/L (98-107); Estimated Glomerular Filt Rate > 60.0 mL/min (>60); Glucose 109 mg/dL (80-110); HEMOLYSIS < 15 (0-50); Potassium 4.1 mmol/L (3.4-5.1); Sodium 143 mmol/L (137-145)
== END ==
PROVIDERS: PCP Nurse Practitioner Family; Referring Provider Internal Medicine Cardiovascular Disease; Visit Provider Internal Medicine Cardiovascular Disease
DX: I25.5 Ischemic cardiomyopathy (principal)
CPT/HCPCS: 36415; 80048

== ENCOUNTER → 2020-10-09 09:08 | Outpatient (CLI) | payer MEDICARE, OTHER, SELFPAY ==
[2019-05-25 12:16] VITALS: BMI 24.1
--- NOTE | 2020-10-09 | DI.US.S_ITS ---
PROCEDURE: US CAROTID DOPPLER BI INDICATIONS: ISCHEMIC CARDIOMYOPATHY TECHNIQUE: Color and pulse Doppler interrogation was performed of both carotid systems, with image documentation and velocity measurements. COMPARISON: None. FINDINGS: Stenosis calculations are based on SRU (Society of Radiologists in Ultrasound) criteria. Right side: Brachial blood pressure: 137/68 mm Hg. Common carotid artery peak systolic velocity: 71 cm/sec. Internal carotid artery peak systolic velocity: 76 cm/sec. Internal carotid artery end diastolic velocity: 23 cm/sec. External carotid artery peak systolic velocity: 103 cm/sec. ICA/CCA peak systolic ratio: 1.1 . Jamil scale imaging description: Mild calcific and soft plaque Percent internal carotid artery stenosis: Less than 50% stenosis . Vertebral artery: Flow direction is antegrade. Left side: Brachial blood pressure: 139/64 mm Hg. Common carotid artery peak systolic velocity: 64 cm/sec. Internal carotid artery peak systolic velocity: 83 cm/sec. Internal carotid artery end diastolic velocity: 17 cm/sec. External carotid artery peak systolic velocity: 163 cm/sec. ICA/CCA peak systolic ratio: 1.3 . Jamil scale imaging description: Mild calcific and soft plaque Percent internal carotid artery stenosis: Less than 50% stenosis . Vertebral artery: Flow direction is antegrade. IMPRESSION: Less than 50% stenosis at each internal carotid artery. Vertebral arterial flow is antegrade in direction. Dictated by: Sameer Valdez M.D. on 10/09/2020 at 13:31 Approved by: Sameer Valdez M.D. on 10/09/2020 at 13:32
== END ==
PROVIDERS: PCP Nurse Practitioner Family; Referring Provider Internal Medicine Cardiovascular Disease; Visit Provider Internal Medicine Cardiovascular Disease
DX: I65.23 Occlusion and stenosis of bilateral carotid arteries (principal); I25.5 Ischemic cardiomyopathy; Z82.3 Family history of stroke
CPT/HCPCS: 93880

== ENCOUNTER → 2021-03-06 13:21 | Outpatient (CLI) | payer MEDICARE, OTHER, SELFPAY ==
[2019-05-25 12:16] VITALS: BMI 24.1
[2021-03-06 14:42] LABS: BUN Creatinine Ratio 23.5 (6-22); Blood Urea Nitrogen 24 mg/dL (9-20); Calcium 9.5 mg/dL (8.4-10.2); Carbon Dioxide 35 mmol/L (22-32); Chloride 101 mmol/L (98-107); Estimated Glomerular Filt Rate > 60.0 mL/min (>60); Glucose 86 mg/dL (80-110); HEMOLYSIS < 15 (0-50); Magnesium 2.5 mg/dL (1.6-2.3); Potassium 4.6 mmol/L (3.4-5.1); Sodium 141 mmol/L (137-145)
[2021-03-06 15:12] LABS: Thyroid Stimulating Hormone 3.01 uIU/mL (0.47-4.68)
== END ==
PROVIDERS: PCP Nurse Practitioner Family; Referring Provider Internal Medicine Cardiovascular Disease; Visit Provider Internal Medicine Cardiovascular Disease
DX: I47.2 Ventricular tachycardia (principal); I48.0 Paroxysmal atrial fibrillation; I25.5 Ischemic cardiomyopathy
CPT/HCPCS: 36415; 80048; 83735; 84443

== ENCOUNTER 2021-05-24 16:37 | Emergency (ER) | payer MEDICARE, OTHER, SELFPAY ==
[2019-05-25 12:16] VITALS: BMI 24.1
[2021-05-24 16:45] VITALS: BP 191/88; PULSE 57; RESP 18; TEMP 36.4; O2SAT 97
--- NOTE | 2021-05-24 16:45 | ED_ITS ---
HPI - Fall General Chief Complaint: Trauma Stated Complaint: Fell laceration to back of head Time Seen by Provider: 05/24/21 16:40 Source: patient, family and old records reviewed Mode of arrival: Wheelchair Limitations: no limitations History of Present Illness HPI Narrative: This is an 86-year-old male with a history of CABG, defibrillator for ischemic cardiomyopathy, coronary disease and dyslipidemia on daily aspirin. Patient has had chronic issues with balance and gait for the past 2-3 years but has been f alling more frequently. He has started using a walker in the last 2-3 weeks. Today is that he lost his balance in the kitchen fell and struck his head against a cabinet or the refrigerator of but a large laceration some bleeding. Patient is on aspirin daily. He is not on other anticoagulants at this time. 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 Patient states he has pain at the site of laceration but denies other injuries. No neck or back pain. No chest pain or shortness of breath. No nausea or vomiting. He denies being locked out or having a loss of consciousness prior to or during the event. He states both his legs have felt weak and he has had this persistently as well as chronic neuropathy. Patient denies tobacco he is a former smoker, no alcohol or illicit. He is accompanied by his today. Related Data Home Medications Medication Instructions Recorded Confirmed multivitamin (Multiple Vitamins) 1 tab PO DAILY #0 09/25/10 02/12/20 isosorbide mononitrate 60 mg 30 mg PO DAILY 01/23/18 02/12/20 tablet,extended release 24 hr vit C 150 mg-vit E 30 unit-lutein 1 cap PO DAILY 01/23/18 02/12/20 5 yx-ffrdtvmi-kauje 3 150 mg capsule (Ocuvite) latanoprost 0.005 % eye drops 1 drp EYE-BOTH .HS 04/09/19 02/12/20 timolol 0.5 % eye drops 1 drp EYE-BOTH DAILY 04/09/19 02/12/20 vitamins A,C,K-suqi-aonvxr 14,320 1 cap PO .qd cap 04/09/19 02/12/20 unit-226 mg-200 unit capsule (PreserVision AREDS) aspirin 81 mg tablet,delayed 81 mg PO DAILY tab 09/26/19 02/12/20 release ibuprofen 200 mg tablet 200 mg PO DAILY PRN tab 09/26/19 02/12/20 lisinopril 10 1 tab PO DAILY 09/26/19 02/12/20 mg-hydrochlorothiazide 12.5 mg tablet acetylcysteine 600 mg capsule (NAC) 600 mg PO DAILY 02/12/20 02/12/20 alpha lipoic acid 600 mg capsule 600 mg PO DAILY 02/12/20 02/12/20 metoprolol succinate 50 mg 75 mg PO BID tab 02/12/20 02/12/20 tablet,extended release 24 hr Previous Rx's Medication Instructions Recorded Handicap placard #1 ea 02/12/20 atorvastatin 80 mg tablet 80 mg PO DAILY #90 tab 02/12/20 Allergies Allergy/AdvReac Type Severity Reaction Status Date / Time clindamycin [CLINDAMYCIN] Allergy Unknown Verified 02/12/20 12:01 iodine [IODINE] Allergy Unknown Verified 02/12/20 12:01 Review of Systems Review of Systems ROS Unobtainable: All systems reviewed & are unremarkable except as noted in HPI and below Patient History Medical History Actinic keratosis Atrial fibrillation Basal cell carcinoma Cardiomyopathy Carpal tunnel syndrome Cataracts, bilateral Coronary artery disease Cyst, nasal sinus (1971) Degenerative joint disease involving multiple joints Erectile dysfunction Failure of right total hip arthroplasty Glaucoma Heart murmur History of placement of internal cardiac defibrillator (04/2012) Hyperlipemia Hypertension Ischemic cardiomyopathy Macular degeneration Mixed hyperlipidemia Myocardial infarction (1996) Non-sustained ventricular tachycardia Peripheral neuropathy (02/2019) Recurrent ventricular tachycardia Squamous cell carcinoma Vitreous floaters of right eye Surgical History AICD (automatic cardioverter/defibrillator) present (~04/2012) History of carpal tunnel release (01/2006) History of Mohs surgery for squamous cell carcinoma of skin (2013) Hx of bilateral hip replacements (2008) Hx of cardiac catheterization (~1996) Hx of cardiac catheterization (07/06/11) Hx of cataract surgery Hx of coronary artery bypass graft S/P CABG x 2 (~2011) Family History Father Enlarged heart Stroke Mother Stroke Brother Cirrhosis Social History household members: spouse Smoking Status: Former smoker second hand exposure: No alcohol intake: former substance use type: does not use Smoking Status: Former smoker Substance Use Type: does not use Exam Narrative Exam Narrative: GEN: Patient appears in milddistress. HEAD: Patient has a posterior linear scalp laceration through the skin. Bleeding is controlled at approximately 5 cm in length. No raccoon/Muñoz sign. NECK: Nontender, painless range of motion, trachea midline [Negative/positive] Nexus criteria, there are no meds line tenderness, distracting injury, altered mental status, neuro deficit, recent EtOH. EYES: PERRLA, EOMI ENT: External inspection normal, trachea is midline, TM's are normal no hemotypanum, Nares are clear, no septal hematoma, no dental or oral injury, airway is normal and with normal occlusion, No bony tenderness RESP: Chest is nontender and has symmetric movement, no ecchymosis, breath sounds are normal no crackles, wheezes or rales CVS: Heart sounds are normal, no murmur noted, No JVD. ABG/GI: Nontender, soft, normal bowel sounds, no distention, no organomegaly, pelvic rock is negative NEURO: Oriented AOx3, neuro is grossly intact, sensation and motor is normal all 4 extremities moving, cranial nerves II through XII are intact, GCS is 15 PSYCH: Normal mood and affect SKIN: Intact, warm and dry, no crepitus and without decubitus BACK: No CVA tenderness, no vertebral tenderness, no step-off's, no crepitus EXT: Atraumatic, hips are nontender, no pedal edema, normal color and temperature, normal range of motion of extremities with normal tendon exam, 2+ pulses in all four extremities Initial Vital Signs Initial Vital Signs: Vital Signs Temperature 97.5 F L 05/24/21 16:45 Pulse Rate 57 L 05/24/21 16:45 Respiratory Rate 18 05/24/21 16:45 Blood Pressure 191/88 H 05/24/21 16:45 Pulse Oximetry 97 05/24/21 16:45 Procedures Laceration Repair Laceration 1: Time of procedure: 18:00 Site: scalp Size (cm): 5 Description: linear Depth: simple, single layer Local Anesthetic: lidocaine 1% Amount of anesthesia used (mL): 5 Pre-repair: wound explored, irrigated extensively and deep structures intact Skin layer closed with: minerva Number of sutures: 6 Scores GCS Anjana coma scale eye opening: Spontaneous Anjana coma scale verbal response: Orientated [place] coma scale motor response: Obey commands [place] coma scale total score: 15 Course Orders Ordered: ED Orders 05/24/21 16:54 CT cervical spine wo con Stat CT head/brain wo con Stat EKG-12 Lead Stat 05/24/21 17:10 Basic Metabolic Panel Stat Complete Blood Count AUTO DIFF Stat Partial Thromboplastin Time Stat Prothrombin Time INR Stat Discontinued Medications Diphtheria/Tetanus/Acell Pertussis (Tet,Diph,Pertuss(Acell),Vac/Pf 0.5 Ml Syringe) 0.5 ml IM .ONCE ONE Stop: 05/24/21 16:56 Last Admin: 05/24/21 18:04 Dose: 0.5 ml Documented by: BTONER Lidocaine/Prilocaine (Lidocaine/Prilocaine 5 Gm) 5 gm TOP NOW ONE Stop: 05/24/21 16:57 Last Admin: 05/24/21 18:10 Dose: Not Given Documented by: BTONER Lidocaine/Sodium Bicarbonate (Lido 1%/Sod Bicarb 8.4% (10ml) 10 Ml Syringe) 10 ml INJ NOW ONE Stop: 05/24/21 17:07 Last Admin: 05/24/21 18:04 Dose: 10 ml Documented by: BTONER Vital Signs Vital signs: Vital Signs - 8 hr 05/24/21 16:45 05/24/21 17:15 05/24/21 17:30 Temperature 97.5 F L Pulse Rate 57 L 50 L 52 L Respiratory Rate 18 Blood Pressure 191/88 H 184/84 H Pulse Oximetry 97 96 99 05/24/21 18:00 05/24/21 18:28 Temperature Pulse Rate 51 L 53 L Respiratory Rate Blood Pressure 173/80 H 198/85 H Pulse Oximetry 97 98 MDM - Fall Lab Data Result diagrams: 05/24/21 17:10 05/24/21 17:10 Labs: Lab Results 05/24/21 05/24/21 05/24/21 Range/Units 17:10 17:10 17:10 WBC 7.3 (4.5-11.0) X10^3/uL RBC 4.80 (4.5-5.9) X10^6/uL Hgb 14.7 (13.5-17.5) g/dL Hct 42.6 (41-53) % MCV 88.7 (80-100) fL MCH 30.7 (26-34) PG MCHC 34.6 (30-36) % RDW 14.7 (11.6-14.8) % Plt Count 199 (150-400) X10^3/uL Neut % (Auto) 65.2 (50-75) % Lymph % (Auto) 19.8 L (25-40) % Cottle % (Auto) 8.8 (3-14) % Eos % (Auto) 5.1 H (2-4) % Baso % (Auto) 1.1 (0-2) % Neut # (Auto) 4700 (4307-2542) /uL Lymph # (Auto) 1400 (2567-6887) /uL Cottle # (Auto) 600 (0-900) /uL Eos # (Auto) 400 (0-450) /uL Baso # (Auto) 100 (0-100) /uL PT 11.5 (10.1-12.7) SECONDS INR 1.0 (0.9-1.3) APTT 40 H (26.4-36.2) SECONDS Sodium 141 (137-145) mmol/L Potassium 4.3 (3.4-5.1) mmol/L Chloride 102 (98-107) mmol/L Carbon Dioxide 34 H (22-32) mmol/L BUN 22 H (9-20) mg/dL Creatinine 0.93 (0.66-1.25) mg/dL Estimated GFR > 60.0 (>60) mL/min BUN/Creatinine Ratio 23.7 H (6-22) Glucose 92 (80-110) mg/dL Calcium 9.4 (8.4-10.2) mg/dL ECG Data Attestation: I personally reviewed and interpreted this ECG as follows: Interpretation: Sinus bradycardia rate of 51, OK 132, QRS of 134 and QTC of 435. No acute elevation. Depression in lateral lead. Patient has prior which is paced. MDM Narrative Medical decision making narrative: This is an 86-year-old male comes emergency department with complaint of ground level fall with laceration to the back of his head. He does take an aspirin daily, head CT and C-spine are negative for acute changes there are degenerative changes. He has had chronic weakness but has been using a walker more recently so basic labs were checked which do not show any major changes. Patient's laceration was closed with minerva. All questions answered return precautions discussed. Discharge Plan Departure Patient Disposition: Home Clinical Impression: Laceration of scalp, Fall Instructions: DI for Laceration Repair -- Minerva Activity Restrictions/Additional Instructions: Follow-up for removal of your minerva in 7-10 days. You can continue your home medications as prescribed. Wound Care: Keep wound(s) clean and dry. Wash daily with soap and water only. Do not use over the counter products (alcohol or peroxide)on the wounds unless instructed by a physician. If wound condition worsens (increased/expanding redness, developing fluid blisters, or worsening pain), either contact your doctor for an urgent re-assessment , or return to the Emergency Department. Return to the Emergency Department for any new or worsening symptoms. Return to the ED, urgent care, or visit a primary care doctor for removal or suture or minerva in 7-10 days. Return if fever greater than 100.4 Fahrenheit, increased swelling, increasing pain or worsening symptoms such as increased discharge or spreading redness. Severe headaches, neck pain, altered mental status, numbness, tingling or weakness, persistent vomiting or other new or concerning symptoms. Prescriptions: No Action isosorbide mononitrate 60 mg tablet extended release 24 hr 30 mg PO DAILY 0RF vit C-vit R-afsccv-bar-om-3 [Ocuvite] 935-11-3-150 ep-cakg-kp-mg capsule 1 cap PO DAILY 0RF multivitamin [Multiple Vitamins] Tablet 1 tab PO DAILY Qty: 0 0RF latanoprost 0.005 % drops 1 drp EYE-BOTH .HS 0RF PreserVision AREDS 14,320-226-200 qjgc-on-sizu capsule 1 cap PO .qd 0RF timolol 0.5 % drops 1 drp EYE-BOTH DAILY 0RF aspirin 81 mg tablet,delayed release (DR/EC) 81 mg PO DAILY 0RF ibuprofen 200 mg tablet 200 mg PO DAILY PRN0RF lisinopril-hydrochlorothiazide 10-12.5 mg tablet 1 tab PO DAILY 0RF metoprolol succinate 50 mg tablet extended release 24 hr 75 mg PO BID 0RF Rx Instructions: 1.5 tabs twice a day alpha lipoic acid 600 mg capsule 600 mg PO DAILY 0RF acetylcysteine [NAC] 600 mg capsule 600 mg PO DAILY 0RF Rx Instructions: administer with a meal atorvastatin 80 mg tablet 80 mg PO DAILY Qty: 90 2RF (DME) Handicap placard Qty: 1 0RF Rx Instructions: Patient meets criteria for handicap placard. Please give him 2 placards Referrals: Kandice Mario ARNP [Primary Care Provider] -
--- NOTE | 2021-05-24 16:54 | DI.CT.S_ITS ---
PROCEDURE: CT HEAD/BRAIN WO CON INDICATIONS: fall, scalp lac, on asa TECHNIQUE: Noncontrast 4.5 mm thick angled axial sections acquired from the foramen magnum to the vertex, with coronal and sagittal reformats. For radiation dose reduction, the following was used: automated exposure control, adjustment of mA and/or kV according to patient size. COMPARISON: None. FINDINGS: Image quality: Mild streak artifact can be seen through the skull base. CSF spaces: Basal cisterns are patent. No extra-axial fluid collections. Asymmetry is seen of the lateral ventricles, with the right side larger than left. Brain: No intracranial bleeds or masses. There is cerebral volume loss for age, with resultant ventricular and sulcal prominence. There are periventricular and deep white matter chronic small vessel ischemic changes. There is intracranial internal carotid artery atherosclerosis. Skull and face: A mild scalp laceration can be seen posteriorly. No associated calvarial fracture is seen. Calvarium and visualized facial bones appear intact, without suspicious lesions. Sinuses: Visualized sinuses and mastoids are clear. IMPRESSION: Mild scalp laceration seen posteriorly, without an associated fracture. No acute intracranial hemorrhage is seen. Asymmetry is seen of the lateral ventricles, which has the appearance of developmental asymmetry. Asymmetric hydrocephalus is considered to be much less unlikely. No acute intracranial process is seen. Dictated by: Alan Loaiza M.D. on 05/24/2021 at 16:49 Approved by: Alan Loaiza M.D. on 05/24/2021 at 16:50
--- NOTE | 2021-05-24 16:54 | DI.CT.S_ITS ---
PROCEDURE: CT CERVICAL SPINE WO CON INDICATIONS: fall, scalp lac, on asa TECHNIQUE: Noncontrast 3 mm thick sections acquired from the skull base to the T4 level. Sagittal and coronal reformats were then constructed. For radiation dose reduction, the following was used: automated exposure control, adjustment of mA and/or kV according to patient size. COMPARISON: None. FINDINGS: Image quality: Excellent. Bones: No fractures or dislocations. Visualized superior ribs are intact. Multiple levels of degenerative change are seen. 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 At C4-C5 and C6-C7 there is at least moderate disc space narrowing with associated prominent bridging endplate osteophytes. Minimal anterolisthesis is seen at C3-C4 and C5-C6 and C7-T1. Milder degenerative changes are seen elsewhere. Sternotomy wires are seen. Soft tissues: Prevertebral soft tissues are normal in thickness. No paravertebral hematomas. No apical pneumothoraces. A left-sided pacer device is seen. IMPRESSION: No acute fracture is seen. Multiple levels of prominent degenerative change are seen, which are worst at C4-C5 and C6-C7. 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 Left-sided pacer device Sternotomy wires sternotomy wires Dictated by: Alan Loaiza M.D. on 05/24/2021 at 16:51 Approved by: Alan Loaiza M.D. on 05/24/2021 at 16:54
[2021-05-24 17:15] VITALS: PULSE 50; O2SAT 96
[2021-05-24 17:26] LABS: Add Manual Diff / Slide Review NO; Basophils Absolute Auto 100 /uL (0-100); Basophils Percent Auto 1.1 % (0-2); Eosinophils Absolute Auto 400 /uL (0-450); Eosinophils Percent Auto 5.1 % (2-4); Hematocrit 42.6 % (41-53); Hemoglobin 14.7 g/dL (13.5-17.5); Lymphocytes Absolute Auto 1400 /uL (1100-4500); Lymphocytes Percent Auto 19.8 % (25-40); Mean Corpuscular HGB Conc 34.6 % (30-36); Mean Corpuscular Hemoglobin 30.7 PG (26-34); Mean Corpuscular Volume 88.7 fL (80-100); Monocytes Absolute Auto 600 /uL (0-900); Monocytes Percent Auto 8.8 % (3-14); Neutrophils Absolute Auto 4700 /uL (1500-7000); Neutrophils Percent Auto 65.2 % (50-75); Platelet Count 199 X10^3/uL (150-400); Red Cell Distribution Width 14.7 % (11.6-14.8); White Blood Cell Count 7.3 X10^3/uL (4.5-11.0)
[2021-05-24 17:30] VITALS: BP 184/84; PULSE 52; O2SAT 99
[2021-05-24 17:30] LABS: Prothrombin Time 11.5 SECONDS (10.1-12.7)
[2021-05-24 17:32] LABS: PTT Partial Thromboplastin Tim 40 SECONDS (26.4-36.2)
[2021-05-24 17:34] LABS: BUN Creatinine Ratio 23.7 (6-22); Blood Urea Nitrogen 22 mg/dL (9-20); Calcium 9.4 mg/dL (8.4-10.2); Carbon Dioxide 34 mmol/L (22-32); Chloride 102 mmol/L (98-107); Estimated Glomerular Filt Rate > 60.0 mL/min (>60); Glucose 92 mg/dL (80-110); HEMOLYSIS 55 (0-50); Potassium 4.3 mmol/L (3.4-5.1); Sodium 141 mmol/L (137-145)
[2021-05-24 18:00] VITALS: BP 173/80; PULSE 51; O2SAT 97
[2021-05-24] MEDS: LIDO 1%/SOD BICARB 8.4% (10ML) 10 ML SYRINGE INJ (18:04)
[2021-05-24] MEDS: TET,DIPH,PERTUSS(ACELL),VAC/PF 0.5 ML SYRINGE IM (18:04)
[2021-05-24 18:28] VITALS: BP 198/85; PULSE 53; O2SAT 98
[2021-05-24 18:30] VITALS: BP 189/84; PULSE 107; O2SAT 92
--- NOTE | 2021-05-24 18:45 | PC.NURSE ---
Pts BP is high, states he will take his pm BP meds as soon as they get home. Provider aware.
--- NOTE | 2021-05-24 19:10 | PC.NURSE ---
Patient has history of 3 falls in the last 2 weeks. Reports that his leg has been giving out on him. Denied hitting his head on previous falls.
== END 2021-05-24 18:55 | disposition home or self-care (01) ==
PROVIDERS: Emergency Provider Emergency Medicine; PCP Nurse Practitioner Family
DX: S01.01XA Laceration without foreign body of scalp, initial encounter (principal); R00.1 Bradycardia, unspecified; W01.10XA Fall on same level from slipping, tripping and stumbling with subsequent striking against unspecified object, initial encounter; Z91.81 History of falling; Z23 Encounter for immunization
CPT/HCPCS: 12002; 36415; 70450; 72125; 80048; 85025; 85610; 85730; 90471; 93005; 99284; 90715

== ENCOUNTER → 2021-07-02 14:26 | Outpatient (CLI) | payer MEDICARE, OTHER, SELFPAY ==
[2019-05-25 12:16] VITALS: BMI 24.1
--- NOTE | 2021-07-02 14:28 | DI.RAD.S_ITS ---
PROCEDURE: XR HIP W PEL IF DONE RIVAS MIN 4V INDICATIONS: ongoing pain after fall TECHNIQUE: AP pelvis with lateral view(s) of the right and left hip(s). COMPARISON: [facility], , XR HIP W PEL IF DONE RT 2V, 05/25/2019, 11:18. FINDINGS: Bones: No fractures or dislocations. Pelvic ring appears intact. No suspicious bony lesions. Bilateral hip arthroplasties. Intact hip prostheses. Moderate degenerative disease at L4-L5. Soft tissues: The visualized bowel gas pattern is normal. No suspicious soft tissue calcifications. IMPRESSION: 1. No fracture or dislocation. 2. Bilateral hip arthroplasties. Dictated by: Vadim Lomax M.D. on 07/02/2021 at 15:30 Approved by: Vadim Lomax M.D. on 07/02/2021 at 15:32
== END ==
PROVIDERS: PCP Nurse Practitioner Family; Referring Provider Nurse Practitioner Family; Visit Provider Nurse Practitioner Family
DX: M25.552 Pain in left hip (principal); M51.36 Other intervertebral disc degeneration, lumbar region; Z96.643 Presence of artificial hip joint, bilateral
CPT/HCPCS: 73522

== ENCOUNTER → 2021-07-24 11:22 | Outpatient (CLI) | payer MEDICARE, OTHER, SELFPAY ==
[2019-05-25 12:16] VITALS: BMI 24.1
[2021-07-24 12:25] LABS: Hematocrit 42.3 % (41-53); Hemoglobin 14.3 g/dL (13.5-17.5); Mean Corpuscular HGB Conc 33.7 % (30-36); Mean Corpuscular Hemoglobin 30.4 PG (26-34); Mean Corpuscular Volume 90.3 fL (80-100); Platelet Count 188 X10^3/uL (150-400); Red Blood Cell Count 4.69 X10^6/uL (4.5-5.9); White Blood Cell Count 7.1 X10^3/uL (4.5-11.0)
[2021-07-24 12:45] LABS: Alanine Aminotransferase 21 IU/L (<50); Albumin Globulin Ratio 1.4 (1.0-2.8); Alkaline Phosphatase 102 U/L (38-126); Aspartate Aminotransferase 71 IU/L (17-59); BUN Creatinine Ratio 20.2 (6-22); Bilirubin Total 1.1 mg/dL (0.2-1.3); Blood Urea Nitrogen 25 mg/dL (9-20); Carbon Dioxide 31 mmol/L (22-32); Chloride 104 mmol/L (98-107); Cholesterol 136 mg/dL (140-199); Estimated Glomerular Filt Rate 57 mL/min (>60); Globulin 2.9 g/dL (1.7-4.1); Glucose 100 mg/dL (80-110); HDL Cholesterol 42 mg/dL (40-60); HEMOLYSIS < 15 (0-50); LDL Cholesterol Calculated 74 mg/dL (<100); Magnesium 2.4 mg/dL (1.6-2.3); Potassium 4.4 mmol/L (3.4-5.1); Sodium 143 mmol/L (137-145); Total Protein 6.9 g/dL (6.3-8.2); Triglycerides 101 mg/dL (35-150)
[2021-07-24 13:16] LABS: TSH w/ Reflex to FT4 7.28 uIU/mL (0.47-4.68)
[2021-07-24 13:46] LABS: Free T4, Direct Thyroxine 1.57 ng/dL (0.78-2.19)
== END ==
PROVIDERS: PCP Nurse Practitioner Family; Referring Provider Internal Medicine Cardiovascular Disease; Visit Provider Internal Medicine Cardiovascular Disease
DX: I10 Essential (primary) hypertension (principal); E78.5 Hyperlipidemia, unspecified; E78.2 Mixed hyperlipidemia; E87.5 Hyperkalemia; G62.9 Polyneuropathy, unspecified; I73.9 Peripheral vascular disease, unspecified; R29.6 Repeated falls; Z00.00 Encounter for general adult medical examination without abnormal findings; Z13.6 Encounter for screening for cardiovascular disorders
CPT/HCPCS: 36415; 80053; 80061; 83735; 84439; 84443; 85027

== ENCOUNTER → 2021-11-02 15:01 | Outpatient (CLI) | payer MEDICARE, OTHER, SELFPAY ==
[2019-05-25 12:16] VITALS: BMI 24.1
[2021-11-02 19:57] LABS: BUN Creatinine Ratio 15.8 (6-22); Blood Urea Nitrogen 23 mg/dL (9-20); Calcium 8.6 mg/dL (8.4-10.2); Carbon Dioxide 26 mmol/L (22-32); Chloride 105 mmol/L (98-107); Estimated Glomerular Filt Rate 47 mL/min (>60); Glucose 127 mg/dL (80-110); HEMOLYSIS < 15 (0-50); Potassium 4.7 mmol/L (3.4-5.1); Sodium 139 mmol/L (137-145)
== END ==
PROVIDERS: PCP Nurse Practitioner; Visit Provider Nurse Practitioner
DX: E87.5 Hyperkalemia (principal); I25.10 Atherosclerotic heart disease of native coronary artery without angina pectoris; R00.1 Bradycardia, unspecified; R29.6 Repeated falls; R60.0 Localized edema
CPT/HCPCS: 80048

== ENCOUNTER 2021-11-08 09:45 | Emergency (ER) | payer MEDICARE, OTHER, SELFPAY ==
[2019-05-25 12:16] VITALS: BMI 24.1
[2021-11-08] VITALS (15 sets, daily range): BP systolic 120–164; BP diastolic 58–76; PULSE 68–79; RESP 17–20; TEMP 36.6; O2SAT 98–100; BMI 22.1
[2021-11-08 12:35] LABS: Appearance Urine UA CLEAR; Bilirubin Urine UA NEGATIVE (NEGATIVE); Color Urine UA YELLOW; Glucose Urine UA NEGATIVE (Negative); Ketones Urine UA NEGATIVE (NEGATIVE); Leukocyte Esterase Urine UA NEGATIVE (NEGATIVE); Nitrite Urine UA NEGATIVE (Negative); Occult Blood Urine UA NEGATIVE (Negative); Protein Urine UA NEGATIVE (Negative); Urobilinogen Urine UA 0.2 E.U./dL (0.2)
[2021-11-08 12:41] LABS: Add Manual Diff / Slide Review NO; Basophils Absolute Auto 100 /uL (0-100); Basophils Percent Auto 0.9 % (0-2); Eosinophils Absolute Auto 300 /uL (0-450); Eosinophils Percent Auto 3.8 % (2-4); Hematocrit 37.1 % (41-53); Hemoglobin 12.5 g/dL (13.5-17.5); Lymphocytes Absolute Auto 1900 /uL (1100-4500); Lymphocytes Percent Auto 23.4 % (25-40); Mean Corpuscular HGB Conc 33.7 % (30-36); Mean Corpuscular Hemoglobin 30.7 PG (26-34); Mean Corpuscular Volume 91.1 fL (80-100); Monocytes Absolute Auto 800 /uL (0-900); Monocytes Percent Auto 10.1 % (3-14); Neutrophils Absolute Auto 5100 /uL (1500-7000); Neutrophils Percent Auto 61.8 % (50-75); Platelet Count 257 X10^3/uL (150-400); Red Blood Cell Count 4.08 X10^6/uL (4.5-5.9); Red Cell Distribution Width 16.5 % (11.6-14.8); White Blood Cell Count 8.3 X10^3/uL (4.5-11.0)
[2021-11-08 12:49] LABS: Bacteria Urine None Seen; Culture Indicated Urine Cult Not Indicated; RBC Urine None Seen (0-5/HPF); Squamous Epithelial Cell Urine 0-1 /HPF (0-5/HPF); WBC Urine 0-1/HPF (0-5/HPF)
[2021-11-08 12:49] LABS: Alanine Aminotransferase 18 IU/L (<50); Albumin 3.1 g/dL (3.5-5.0); Alkaline Phosphatase 134 U/L (38-126); Aspartate Aminotransferase 63 IU/L (17-59); BUN Creatinine Ratio 11.7 (6-22); Bilirubin Total 0.8 mg/dL (0.2-1.3); Blood Urea Nitrogen 16 mg/dL (9-20); Calcium 8.7 mg/dL (8.4-10.2); Carbon Dioxide 29 mmol/L (22-32); Chloride 105 mmol/L (98-107); Estimated Glomerular Filt Rate 50 mL/min (>60); Glucose 98 mg/dL (80-110); HEMOLYSIS < 15 (0-50); Lipase 32 U/L (23-300); Potassium 3.9 mmol/L (3.4-5.1); Sodium 140 mmol/L (137-145); Total Protein 6.1 g/dL (6.3-8.2)
--- NOTE | 2021-11-08 14:28 | ED.ABDPAIN ---
HPI - Abdominal Pain General Chief Complaint: Abdominal Pain Stated Complaint: constipated & in pain cant urinate Time Seen by Provider: 11/08/21 12:02 Source: patient and family Mode of arrival: Wheelchair History of Present Illness HPI narrative: 86-year-old male, former smoker, presents to the emergency department with inability to void since this a.m. or defecate in 5-7 days. Patient reports that he noticed some incontinence overnight but was not able to void this morning. Patient has the sensation that he needs to have a bowel movement, but feels that he is impacted and nothing passes. Patient does not recall having a previous history of inability to void but complains of a full bladder. Patient has had a history of constipation that requires disimpaction and stool softeners. Patient has his caregiver with him at the bedside and typically can move from bed to chair with the use of a walker. Related Data Home Medications Medication Instructions Recorded Confirmed multivitamin (Multiple Vitamins 1 tab PO DAILY ##0 09/25/10 07/29/21 tablet) isosorbide mononitrate 60 mg 30 mg PO DAILY 01/23/18 07/29/21 tablet,extended release 24 hr vit C 150 mg-vit E 30 unit-lutein 1 cap PO DAILY 01/23/18 07/29/21 5 pe-rxowoxdj-xymaw 3 150 mg capsule (Ocuvite) latanoprost 0.005 % eye drops 1 drp EYE-BOTH .HS 04/09/19 07/29/21 timolol 0.5 % eye drops 1 drp EYE-BOTH DAILY 04/09/19 07/29/21 vitamins A,C,R-pgku-rrqxvw 14,320 1 cap PO .qd 04/09/19 07/29/21 unit-226 mg-200 unit capsule (PreserVision AREDS) aspirin 81 mg tablet,delayed 81 mg PO DAILY 09/26/19 07/29/21 release acetylcysteine 600 mg capsule (NAC) 600 mg PO DAILY 02/12/20 07/29/21 alpha lipoic acid 600 mg capsule 600 mg PO DAILY 02/12/20 07/29/21 metoprolol succinate 50 mg 100 mg PO BID 07/29/21 07/29/21 tablet,extended release 24 hr mexiletine 150 mg capsule 150 mg PO Q8H 09/08/21 09/08/21 bimatoprost 0.03 % eye drops drp ophthalmic (eye) DAILY 11/02/21 11/02/21 cholecalciferol (vitamin D3) 25 25 mcg PO DAILY 11/02/21 11/02/21 mcg (1,000 unit) capsule dorzolamide 2 % eye drops drp EYE-BOTH BID 11/02/21 11/02/21 furosemide 20 mg tablet 20 mg PO Q OTHER DAY 11/02/21 11/02/21 sacubitril 24 mg-valsartan 26 mg 1 tab PO BID 11/02/21 11/02/21 tablet (Entresto) sennosides 8.6 mg capsule (senna) 8.6 mg PO BEDTIME 11/02/21 11/02/21 Previous Rx's Medication Instructions Recorded Handicap placard #1 ea 02/12/20 atorvastatin 80 mg tablet 80 mg PO DAILY #90 tabs 02/12/20 acetaminophen 325 mg tablet 650 mg PO Q6H PRN fever or pain 11/02/21 #180 tabs hydrochlorothiazide 12.5 mg tablet 12.5 mg PO QAM #90 tabs 11/02/21 omeprazole 20 mg capsule,delayed 20 mg PO DAILY #30 caps 11/02/21 release potassium chloride 10 mEq 10 meq PO DAILY #3 caps 11/02/21 capsule,extended release Allergies Allergy/AdvReac Type Severity Reaction Status Date / Time clindamycin [CLINDAMYCIN] Allergy Unknown Verified 09/08/21 15:52 iodine [IODINE] Allergy Unknown Verified 09/08/21 15:52 Review of Systems Review of Systems Narrative: Narrative: GENERAL: Denies chills, fatigue, fever, sweats. See HPI HEENT: Denies sinus pain, ear pain, sore throat, difficulty swallowing, dizziness. RESPIRATORY: Denies dyspnea, cough, wheezing, sputum. CARDIOVASCULAR: Denies chest pain, palpitations, edema. Pacemaker/defibrillator in place. GASTROINTESTINAL: Denies nausea, vomiting, diarrhea. Rectal pain when bearing down. : Denies dysuria, frequency, hematuria, flank pain. MSK: Denies weakness, joint pain, or bony pain. SKIN: Denies rash, skin lesions, or pruritis. NEUROLOGIC: Denies weakness, dizziness, headache, numbness, confusion. PSYCHIATRIC: No concerning psychosocial issues. Patient History Medical History Actinic keratosis Atrial fibrillation Balance disorder Basal cell carcinoma Bradycardia Cardiomyopathy Carpal tunnel syndrome Cataracts, bilateral Coronary artery disease Cyst, nasal sinus (1971) Degenerative joint disease involving multiple joints Edema noted on examination Erectile dysfunction Failure of right total hip arthroplasty Frailty syndrome in geriatric patient Frequent falls Glaucoma Heart murmur History of placement of internal cardiac defibrillator (04/2012) Hyperlipemia Hypertension Ischemic cardiomyopathy Macular degeneration Mixed hyperlipidemia Myocardial infarction (1996) Non-sustained ventricular tachycardia Peripheral neuropathy (02/2019) Recurrent ventricular tachycardia Squamous cell carcinoma Vitreous floaters of right eye Surgical History AICD (automatic cardioverter/defibrillator) present (~04/2012) History of carpal tunnel release (01/2006) History of Mohs surgery for squamous cell carcinoma of skin (2013) Hx of bilateral hip replacements (2008) Hx of cardiac catheterization (~1996) Hx of cardiac catheterization (07/06/11) Hx of cataract surgery Hx of coronary artery bypass graft S/P CABG x 2 (~2011) Family History Father Enlarged heart Stroke Mother Stroke Brother Cirrhosis Social History household members: spouse Smoking Status: Former smoker second hand exposure: No alcohol intake: former substance use type: does not use Smoking Status: Former smoker Substance Use Type: does not use Exam Narrative Exam Narrative: Exam Narrative: GENERAL: This is a well-nourished, well-developed patient, in no acute distress HEAD: Atraumatic. Normocephalic. EYES: Pupils equal round and reactive. Extraocular motions intact. No scleral icterus, injection or drainage. ENT: Nose without bleeding, purulent drainage. Throat without erythema, tonsillar hypertrophy or exudate. Airway patent. NECK: Trachea midline. No JVD or lymphadenopathy. Nontender. CARDIOVASCULAR: Regular rate and rhythm without murmurs, peripheral pulses intact, cap refill <2 sec. RESPIRATORY: Breath sounds equal and clear bilaterally. No wheezes, rales, or rhonchi. No cough. No increased respiratory effort. No accessory muscle use. GASTROINTESTINAL: Abdomen soft, non-tender, nondistended without guarding or rebound. Suprapubic pain prior to catheterization. 1.5 L urine drained from bladder. Through JOSE, copious amounts of stool removed from rectal vault. Patient tolerated procedure well. MSK: Moves all extremities, but is weak. Neurovascularly intact. NEURO: A&O x 3. SKIN: Warm, dry, no rashes or lesions noted. Initial Vital Signs Initial Vital Signs: Vital Signs Temperature 97.8 F 11/08/21 10:11 Blood Pressure 138/74 11/08/21 10:11 Reviewed Course Orders Ordered: ED Orders 11/08/21 12:00 Urinalysis and Microscopic Stat 11/08/21 12:29 Complete Blood Count AUTO DIFF Stat Comprehensive Metabolic Panel Stat Lipase Stat 11/08/21 12:30 EKG-12 Lead Stat Discontinued Medications Sodium Biphosphate/Sodium Phosphate (Fleets Enema) 1 each ME NOW ONE Stop: 11/08/21 14:28 Vital Signs Vital signs: Vital Signs - 8 hr 11/08/21 10:11 11/08/21 11:35 11/08/21 12:00 Temperature 97.8 F Pulse Rate 69 Respiratory Rate 18 Blood Pressure 138/74 120/58 L Pulse Oximetry 98 11/08/21 12:00 11/08/21 12:05 11/08/21 12:05 Temperature Pulse Rate 69 69 Respiratory Rate 18 20 Blood Pressure 125/66 Pulse Oximetry 100 100 11/08/21 12:15 11/08/21 12:15 11/08/21 12:30 Temperature Pulse Rate 69 69 Respiratory Rate 18 20 Blood Pressure 128/66 Pulse Oximetry 100 100 11/08/21 13:00 11/08/21 13:30 11/08/21 14:00 Temperature Pulse Rate 68 69 69 Respiratory Rate 19 18 17 Blood Pressure Pulse Oximetry 99 99 100 11/08/21 14:30 11/08/21 15:00 11/08/21 15:30 Temperature Pulse Rate 69 69 69 Respiratory Rate 18 17 20 Blood Pressure Pulse Oximetry 100 98 100 11/08/21 15:49 11/08/21 15:52 Temperature Pulse Rate 69 Respiratory Rate 18 Blood Pressure 164/76 H Pulse Oximetry MDM - Abdominal Pain Differential Diagnosis Differential diagnosis: Likely abdominal pain and other (Urinary retention and constipation) Lab Data Result diagrams: 11/08/21 12:29 11/08/21 12:29 Labs: Lab Results 11/08/21 11/08/21 11/08/21 Range/Units 12:00 12:29 12:29 WBC 8.3 (4.5-11.0) X10^3/uL RBC 4.08 L (4.5-5.9) X10^6/uL Hgb 12.5 L (13.5-17.5) g/dL Hct 37.1 L (41-53) % MCV 91.1 (80-100) fL MCH 30.7 (26-34) PG MCHC 33.7 (30-36) % RDW 16.5 H (11.6-14.8) % Plt Count 257 (150-400) X10^3/uL Neut % (Auto) 61.8 (50-75) % Lymph % (Auto) 23.4 L (25-40) % [place] % (Auto) 10.1 (3-14) % Eos % (Auto) 3.8 (2-4) % Baso % (Auto) 0.9 (0-2) % Neut # (Auto) 5100 (6909-4250) /uL Lymph # (Auto) 1900 (5124-4116) /uL [place] # (Auto) 800 (0-900) /uL Eos # (Auto) 300 (0-450) /uL Baso # (Auto) 100 (0-100) /uL Sodium 140 (137-145) mmol/L Potassium 3.9 (3.4-5.1) mmol/L Chloride 105 (98-107) mmol/L Carbon Dioxide 29 (22-32) mmol/L BUN 16 (9-20) mg/dL Creatinine 1.37 H (0.66-1.25) mg/dL Estimated GFR 50 L (>60) mL/min BUN/Creatinine Ratio 11.7 (6-22) Glucose 98 (80-110) mg/dL Calcium 8.7 (8.4-10.2) mg/dL Total Bilirubin 0.8 (0.2-1.3) mg/dL AST 63 H (17-59) IU/L ALT 18 (<50) IU/L Alkaline Phosphatase 134 H (38-126) U/L Total Protein 6.1 L (6.3-8.2) g/dL Albumin 3.1 L (3.5-5.0) g/dL Globulin 3.0 (1.7-4.1) g/dL Albumin/Globulin Ratio 1.0 (1.0-2.8) Lipase 32 (23-300) U/L Urine Color Yellow Urine Appearance Clear Urine pH 5.0 (4.5-8.0) Ur Specific [place] 1.010 (1.000-1.035) Urine Protein Negative (Negative) Urine Glucose (UA) Negative (Negative) g/dL Urine Ketones Negative (NEGATIVE) Urine Occult Blood Negative (Negative) Urine Nitrate Negative (Negative) Urine Bilirubin Negative (NEGATIVE) Urine Urobilinogen 0.2 (0.2) E.U./dL Ur Leukocyte Esterase Negative (NEGATIVE) Urine RBC None seen (0-5/HPF) Urine WBC 0-1/hpf (0-5/HPF) Ur Squamous Epith Cells 0-1 /hpf (0-5/HPF) Urine Bacteria None seen (None) Ur Culture Indicated? Cult not indicated ECG Data Attestation: I personally reviewed and interpreted this ECG as follows: Interpretation: Ventricular paced rhythm with occasional PVCs. Ventricular rate of 77 beats per minute. [facility] Narrative Medical decision making narrative: 86-year-old male that presents to the emergency department with inability to void and defecate. Coleman catheter inserted draining 1.5 L of yellow urine. JOSE for disimpaction. Trial of Fleet's enema x2. Patient was able to move his bowels and removed a significant amount from his colon. Will send patient home with Coleman bag, per caregiver's request. Instructed patient and caregiver to increased oral hydration, double up on MiraLax and follow up with her family doctor this week. Patient has a home health nurse coming to the house in 2 days, who will be notified by caregiver of today's proceedings. Discussed plan of care and return precautions with patient and caregiver, who were agreeable with course of action. Discharge Plan Departure Patient Disposition: Home Clinical Impression: Constipation, Acute urinary retention Instructions: DI for Constipation, DI for Urinary Retention in Men Activity Restrictions/Additional Instructions: *You have been diagnosed with constipation and acute urinary retention. We will send you home with the urinary catheter in place. We have disimpacted your colon and used 2 fleets enemas to help you evacuate your bowels. In order to prevent or counteract constipation, I recommend you increase your hydration, especially since he is on a water pill, and double up on your MiraLax until you are having normal bowel movements. Please follow-up with your family doctor this week in case they would like to make changes to your plan of care. For any worsening symptoms, please feel free to come back to the emergency department. *What to do: *Please continue to take your regular medications as directed. [ ] New medication prescriptions sent to your pharmacy: [ ] [ ] New medication written as a paper prescription [ x] No new medications given *Please follow up with your primary care provider in 2-3 days, call for an appointment. Let them know you were seen in the Emergency Department and that we ask that you be seen in follow up. We will electronically transmit a record of today's note if your PCP is in our system *If you do not have a primary care provider please contact the [facility] Resource line at [phone]. They will ask some questions about your medical history and help get you set up with a doctor in the community. ? Return to ER if you should have any new, worsening or concerning symptoms, such as worsening pain, severe headache, confusion, chest pain, difficulty breathing, fever greater than 101 F, shaking chills, persistent vomiting to the point that you cannot drink fluids, or other new or worsening symptoms. Prescriptions: No Action isosorbide mononitrate 60 mg tablet extended release 24 hr 30 mg PO DAILY vit C-vit X-tabbyt-zbi-om-3 [Ocuvite] [id number] yc-sjio-gg-mg capsule 1 cap PO DAILY multivitamin [Multiple Vitamins] Tablet 1 tab PO DAILY Qty: 0 latanoprost 0.005 % drops 1 drp EYE-BOTH .HS PreserVision AREDS [id number] naoz-ve-tkov capsule 1 cap PO .qd timolol 0.5 % drops 1 drp EYE-BOTH DAILY aspirin 81 mg tablet,delayed release (DR/EC) 81 mg PO DAILY alpha lipoic acid 600 mg capsule 600 mg PO DAILY acetylcysteine [NAC] 600 mg capsule 600 mg PO DAILY Rx Instructions: administer with a meal atorvastatin 80 mg tablet 80 mg PO DAILY Qty: 90 2RF (DME) Handicap placard Qty: 1 0RF Rx Instructions: Patient meets criteria for handicap placard. Please give him 2 placards mexiletine 150 mg capsule 150 mg PO Q8H metoprolol succinate 50 mg tablet extended release 24 hr 100 mg PO BID acetaminophen 325 mg tablet 650 mg PO Q6H PRN (Reason: fever or pain) Qty: 180 0RF bimatoprost 0.03 % drops ophthalmic (eye) DAILY dorzolamide 2 % drops EYE-BOTH BID Entresto 24-26 mg tablet 1 tab PO BID omeprazole 20 mg capsule,delayed release(DR/EC) 20 mg PO DAILY Qty: 30 0RF Rx Instructions: take daily for 4 weeks senna 8.6 mg capsule 8.6 mg PO BEDTIME cholecalciferol (vitamin D3) 25 mcg (1,000 unit) capsule 25 mcg PO DAILY furosemide 20 mg tablet 20 mg PO Q OTHER DAY Rx Instructions: x3 days potassium chloride 10 mEq capsule, extended release 10 meq PO DAILY Qty: 3 0RF Rx Instructions: Take 1 tab every other day x3 days hydrochlorothiazide 12.5 mg tablet 12.5 mg PO QAM Qty: 90 3RF Referrals: Jana Webb ARNP [Primary Care Provider] -
[2021-11-08] MEDS: FLEETS ENEMA 1 EACH PR (16:00)
== END 2021-11-08 16:59 | disposition home or self-care (01) ==
PROVIDERS: Family Medicine Addiction Medicine; Emergency Provider Registered Nurse; PCP Nurse Practitioner
DX: K59.00 Constipation, unspecified (principal); R33.8 Other retention of urine; R10.9 Unspecified abdominal pain
CPT/HCPCS: 36415; 80053; 81001; 83690; 85025; 93005; 93010; 99283; 99284

== ENCOUNTER → 2021-11-17 10:26 | Outpatient (CLI) | payer MEDICARE, OTHER, SELFPAY ==
[2019-05-25 12:16] VITALS: BMI 24.1
[2021-11-17 12:51] LABS: Alanine Aminotransferase 13 IU/L (<50); Albumin 2.8 g/dL (3.5-5.0); Alkaline Phosphatase 109 U/L (38-126); Aspartate Aminotransferase 57 IU/L (17-59); BUN Creatinine Ratio 13.5 (6-22); Bilirubin Total 0.6 mg/dL (0.2-1.3); Blood Urea Nitrogen 15 mg/dL (9-20); Calcium 8.3 mg/dL (8.4-10.2); Carbon Dioxide 29 mmol/L (22-32); Chloride 107 mmol/L (98-107); Cholesterol 110 mg/dL (140-199); Estimated Glomerular Filt Rate > 60 mL/min (>60); Globulin 2.9 g/dL (1.7-4.1); Glucose 92 mg/dL (80-110); HDL Cholesterol 27 mg/dL (40-60); HEMOLYSIS < 15 (0-50); LDL Cholesterol Calculated 61 mg/dL (<100); Potassium 4.2 mmol/L (3.4-5.1); Sodium 141 mmol/L (137-145); Total Protein 5.7 g/dL (6.3-8.2); Triglycerides 109 mg/dL (35-150)
== END ==
PROVIDERS: PCP Nurse Practitioner; Referring Provider Nurse Practitioner Family; Visit Provider Nurse Practitioner Family
DX: I10 Essential (primary) hypertension (principal); I50.22 Chronic systolic (congestive) heart failure; I25.10 Atherosclerotic heart disease of native coronary artery without angina pectoris; R60.9 Edema, unspecified
CPT/HCPCS: 36415; 80053; 80061

== ENCOUNTER → 2021-12-10 13:15 | Outpatient (CLI) | payer MEDICARE, OTHER, SELFPAY ==
[2019-05-25 12:16] VITALS: BMI 24.1
== END ==
PROVIDERS: PCP Nurse Practitioner; Referring Provider Nurse Practitioner; Visit Provider Family Medicine
DX: L89.610 Pressure ulcer of right heel, unstageable (principal); L89.620 Pressure ulcer of left heel, unstageable; I73.9 Peripheral vascular disease, unspecified; G90.09 Other idiopathic peripheral autonomic neuropathy; R60.0 Localized edema; Z99.3 Dependence on wheelchair; R53.1 Weakness; E46 Unspecified protein-calorie malnutrition
CPT/HCPCS: 99204; 99215

== ENCOUNTER → 2021-12-15 14:40 | Outpatient (ROUT) | payer MEDICARE, OTHER, SELFPAY ==
[2019-05-25 12:16] VITALS: BMI 24.1
[2021-12-15 15:46] LABS: BUN Creatinine Ratio 16.8 (6-22); Blood Urea Nitrogen 20 mg/dL (9-20); Calcium 9.1 mg/dL (8.4-10.2); Carbon Dioxide 33 mmol/L (22-32); Chloride 99 mmol/L (98-107); Estimated Glomerular Filt Rate 59 mL/min (>60); Glucose 153 mg/dL (80-110); HEMOLYSIS 32 (0-50); Magnesium 2.1 mg/dL (1.6-2.3); Potassium 4.4 mmol/L (3.4-5.1); Sodium 143 mmol/L (137-145)
== END ==
PROVIDERS: PCP Nurse Practitioner; Visit Provider Nurse Practitioner
DX: R60.9 Edema, unspecified (principal)
CPT/HCPCS: 80048; 83735

== ENCOUNTER → 2021-12-17 15:05 | Outpatient (CLI) | payer MEDICARE, OTHER, SELFPAY ==
[2019-05-25 12:16] VITALS: BMI 24.1
== END ==
PROVIDERS: PCP Nurse Practitioner; Referring Provider Nurse Practitioner; Visit Provider Family Medicine
DX: G90.09 Other idiopathic peripheral autonomic neuropathy (principal); L89.623 Pressure ulcer of left heel, stage 3; L89.613 Pressure ulcer of right heel, stage 3; I73.9 Peripheral vascular disease, unspecified; Z99.3 Dependence on wheelchair; R54 Age-related physical debility
CPT/HCPCS: 11042

== ENCOUNTER → 2021-12-23 15:09 | Outpatient (CLI) | payer MEDICARE, OTHER, SELFPAY ==
[2019-05-25 12:16] VITALS: BMI 24.1
== END ==
PROVIDERS: PCP Nurse Practitioner; Referring Provider Nurse Practitioner; Visit Provider Family Medicine
DX: G90.09 Other idiopathic peripheral autonomic neuropathy (principal); L89.610 Pressure ulcer of right heel, unstageable; L89.613 Pressure ulcer of right heel, stage 3; L08.89 Other specified local infections of the skin and subcutaneous tissue; R53.1 Weakness; E46 Unspecified protein-calorie malnutrition; Z99.3 Dependence on wheelchair; M79.662 Pain in left lower leg
CPT/HCPCS: 11042; 87070; 87075; 87077; 87147; 87186; 87205; 99214

== ENCOUNTER → 2021-12-29 14:45 | Outpatient (CLI) | payer MEDICARE, OTHER, SELFPAY ==
[2019-05-25 12:16] VITALS: BMI 24.1
== END ==
PROVIDERS: PCP Nurse Practitioner; Referring Provider Nurse Practitioner; Visit Provider Family Medicine
DX: G90.09 Other idiopathic peripheral autonomic neuropathy (principal); L89.613 Pressure ulcer of right heel, stage 3; L89.623 Pressure ulcer of left heel, stage 3; L08.89 Other specified local infections of the skin and subcutaneous tissue; I73.9 Peripheral vascular disease, unspecified; B95.7 Other staphylococcus as the cause of diseases classified elsewhere; R54 Age-related physical debility; E46 Unspecified protein-calorie malnutrition; Z99.3 Dependence on wheelchair
CPT/HCPCS: 11042; 99213

== ENCOUNTER 2021-12-30 09:33 | Emergency (ER) | payer MEDICARE, OTHER, SELFPAY ==
[2019-05-25 12:16] VITALS: BMI 24.1
[2021-12-30] VITALS (10 sets, daily range): BP systolic 148–158; BP diastolic 88–106; PULSE 69–78; RESP 15–27; TEMP 36.4; O2SAT 88–98; BMI 23.1
--- NOTE | 2021-12-30 10:07 | DI.RAD.S_ITS ---
PROCEDURE: XR CHEST 1V INDICATIONS: chest pain TECHNIQUE: One view of the chest was acquired. COMPARISON: [facility], , CHEST 2 VIEW, 10/28/2008, 11:50. FINDINGS: Surgical changes and devices: Median sternotomy wires and surgical clips are seen. Left chest wall pacemaker lead is noted in the region of right ventricle. Lungs and pleura: There is small to moderate right pleural effusion with right basilar atelectasis/infiltrates. Mild pulmonary vascular congestion is seen. No gross pneumothorax. Mediastinum: Mediastinal contours appear normal. Heart size is enlarged Bones and chest wall: No suspicious bony lesions. Overlying soft tissues appear unremarkable. IMPRESSION: Cardiomegaly and mild congestion with small to moderate right pleural effusion and right basilar atelectasis. No gross pneumothorax. Dictated by: Jose Arriola M.D. on 12/30/2021 at 10:26 Approved by: Jose Arriola M.D. on 12/30/2021 at 10:26
[2021-12-30 10:35] LABS: Add Manual Diff / Slide Review NO; Basophils Absolute Auto 100 /uL (0-100); Eosinophils Absolute Auto 100 /uL (0-450); Eosinophils Percent Auto 1.2 % (2-4); Hematocrit 40.5 % (41-53); Hemoglobin 13.4 g/dL (13.5-17.5); INR 1.3 (0.9-1.3); Lymphocytes Absolute Auto 1400 /uL (1100-4500); Lymphocytes Percent Auto 19.8 % (25-40); Mean Corpuscular HGB Conc 33.1 % (30-36); Mean Corpuscular Hemoglobin 30.1 PG (26-34); Mean Corpuscular Volume 91.1 fL (80-100); Monocytes Absolute Auto 600 /uL (0-900); Neutrophils Absolute Auto 4900 /uL (1500-7000); Platelet Count 202 X10^3/uL (150-400); Prothrombin Time 14.6 SECONDS (10.1-12.7); Red Blood Cell Count 4.45 X10^6/uL (4.5-5.9); Red Cell Distribution Width 15.3 % (11.6-14.8)
[2021-12-30 10:37] LABS: PTT Partial Thromboplastin Tim 42 SECONDS (26-36)
[2021-12-30 10:40] LABS: Alanine Aminotransferase 21 IU/L (<50); Albumin 3.9 g/dL (3.5-5.0); Albumin Globulin Ratio 1.2 (1.0-2.8); Alkaline Phosphatase 129 U/L (38-126); Aspartate Aminotransferase 65 IU/L (17-59); BUN Creatinine Ratio 20.4 (6-22); Bilirubin Total 1.2 mg/dL (0.2-1.3); Blood Urea Nitrogen 28 mg/dL (9-20); Calcium 9.4 mg/dL (8.4-10.2); Carbon Dioxide 25 mmol/L (22-32); Chloride 102 mmol/L (98-107); Creatine Kinase 29 U/L (55-170); Estimated Glomerular Filt Rate 50 mL/min (>60); Globulin 3.2 g/dL (1.7-4.1); Glucose 131 mg/dL (80-110); HEMOLYSIS < 15 (0-50); Lipase 34 U/L (23-300); Magnesium 2.2 mg/dL (1.6-2.3); Potassium 4.1 mmol/L (3.4-5.1); Sodium 141 mmol/L (137-145); Total Protein 7.1 g/dL (6.3-8.2)
[2021-12-30 10:51] LABS: Troponin I 0.028 ng/mL (0.01-0.034)
[2021-12-30 10:59] LABS: COVID19 -Nasal RAPID Negative (Negative)
--- NOTE | 2021-12-30 13:17 | ED.CHESTPAIN ---
HPI - Chest Pain General Chief Complaint: Chest Pain Stated Complaint: SOB, chest pain, retaining fluid per, ref by Artie Time Seen by Provider: 12/30/21 12:16 History of Present Illness HPI narrative: 86-year-old gentleman with ischemic cardiomyopathy, primary cardial infarction, AICD in place for recurrent ventricular tachycardia, atrial fibrillation, anticoagulated only with aspirin, frequent falls, hypertension, hyperlipidemia, chronic foot ulcers for which he sees wound care weekly with home health twice a week presents with increasing dyspnea and complaints of being awoken from sleep at 2:00 a.m. for chest pain. He and his both note that he has had increased swelling in his lower extremities. He was started on doxycycline by Dr. Alvarez for his heel pressure ulcers 2 days ago. Two weeks ago he had seen his primary care provider was given 80 mg of Lasix to take for 7 days and then decrease to 20 mg. For the last week he has been on the 20 mg and has noticed the fairly significant reaccumulation of fluid. He is not on oxygen at home. He reports no fevers. His notes that she has heard more wheezing over the last couple of days. He typically needs a one-person standby pivot assist to go from bed to wheelchair but otherwise is not able to walk at baseline. He does not complain of headache, abdominal pain, vomiting or diarrhea. Feels that he is stooling and voiding normally Related Data Home Medications Medication Instructions Recorded Confirmed multivitamin (Multiple Vitamins 1 tab PO DAILY ##0 09/25/10 11/09/21 tablet) isosorbide mononitrate 60 mg 30 mg PO DAILY 01/23/18 11/09/21 tablet,extended release 24 hr vit C 150 mg-vit E 30 unit-lutein 1 cap PO DAILY 01/23/18 11/09/21 5 sb-[id number] 3 150 mg capsule (Ocuvite) latanoprost 0.005 % eye drops 1 drp EYE-BOTH .HS 04/09/19 11/09/21 timolol 0.5 % eye drops 1 drp EYE-BOTH DAILY 04/09/19 11/09/21 vitamins A,C,E-fsaw-pljjhv 14,320 1 cap PO .qd 04/09/19 11/09/21 unit-226 mg-200 unit capsule (PreserVision AREDS) aspirin 81 mg tablet,delayed 81 mg PO DAILY 09/26/19 11/09/21 release acetylcysteine 600 mg capsule (NAC) 600 mg PO DAILY 02/12/20 11/09/21 alpha lipoic acid 600 mg capsule 600 mg PO DAILY 02/12/20 11/09/21 metoprolol succinate 50 mg 100 mg PO BID 07/29/21 11/09/21 tablet,extended release 24 hr mexiletine 150 mg capsule 150 mg PO Q8H 09/08/21 11/09/21 bimatoprost 0.03 % eye drops drp ophthalmic (eye) DAILY 11/02/21 11/09/21 cholecalciferol (vitamin D3) 25 25 mcg PO DAILY 11/02/21 11/09/21 mcg (1,000 unit) capsule dorzolamide 2 % eye drops drp EYE-BOTH BID 11/02/21 11/09/21 furosemide 20 mg tablet 20 mg PO Q OTHER DAY 11/02/21 11/09/21 sacubitril 24 mg-valsartan 26 mg 1 tab PO BID 11/02/21 11/09/21 tablet (Entresto) sennosides 8.6 mg capsule (senna) 8.6 mg PO BEDTIME 11/02/21 11/09/21 Previous Rx's Medication Instructions Recorded Handicap placard #1 ea 02/12/20 atorvastatin 80 mg tablet 80 mg PO DAILY #90 tabs 02/12/20 acetaminophen 325 mg tablet 650 mg PO Q6H PRN fever or pain 11/02/21 #180 tabs hydrochlorothiazide 12.5 mg tablet 12.5 mg PO QAM #90 tabs 11/02/21 omeprazole 20 mg capsule,delayed 20 mg PO DAILY #30 caps 11/02/21 release potassium chloride 10 mEq 10 meq PO DAILY #3 caps 11/02/21 capsule,extended release docusate sodium 100 mg capsule 200 mg PO BID #360 caps 11/09/21 (Colace) mineral oil (Fleet Mineral Oil 118 ml PA DAILY PRN constipation 11/09/21 enema) #133 mL sennosides 8.6 mg capsule (senna) 17.2 mg PO BEDTIME PRN No BM x2 11/09/21 days #180 caps furosemide 80 mg tablet 80 mg PO DAILY #7 tabs 12/08/21 furosemide 40 mg tablet 60 mg PO QAM #60 tabs 12/30/21 Allergies Allergy/AdvReac Type Severity Reaction Status Date / Time clindamycin [CLINDAMYCIN] Allergy Unknown Verified 09/08/21 15:52 iodine [IODINE] Allergy Unknown Verified 09/08/21 15:52 Review of Systems Review of Systems Narrative: Remainder of complete review of systems is otherwise unremarkable except for that included in the HPI. Patient History Medical History Actinic keratosis Atrial fibrillation Balance disorder Basal cell carcinoma Bradycardia Cardiomyopathy Carpal tunnel syndrome Cataracts, bilateral Coronary artery disease Cyst, nasal sinus (1971) Degenerative joint disease involving multiple joints Edema noted on examination Erectile dysfunction Failure of right total hip arthroplasty Frailty syndrome in geriatric patient Frequent falls Glaucoma Heart murmur History of placement of internal cardiac defibrillator (04/2012) Hyperlipemia Hypertension Ischemic cardiomyopathy Macular degeneration Mixed hyperlipidemia Myocardial infarction (1996) Non-sustained ventricular tachycardia Peripheral neuropathy (02/2019) Recurrent ventricular tachycardia Squamous cell carcinoma Vitreous floaters of right eye Surgical History AICD (automatic cardioverter/defibrillator) present (~04/2012) History of carpal tunnel release (01/2006) History of Mohs surgery for squamous cell carcinoma of skin (2013) Hx of bilateral hip replacements (2008) Hx of cardiac catheterization (~1996) Hx of cardiac catheterization (07/06/11) Hx of cataract surgery Hx of coronary artery bypass graft S/P CABG x 2 (~2011) Family History Father Enlarged heart Stroke Mother Stroke Brother Cirrhosis Social History household members: spouse Smoking Status: Former smoker second hand exposure: No alcohol intake: former substance use type: does not use Smoking Status: Former smoker Substance Use Type: does not use Exam Initial Vital Signs Initial Vital Signs: Vital Signs Temperature 97.6 F 12/30/21 09:58 Pulse Rate 78 12/30/21 09:58 Respiratory Rate 20 12/30/21 09:58 Blood Pressure 148/88 H 12/30/21 09:58 Pulse Oximetry 97 12/30/21 09:58 Oxygen Delivery Method 12/30/21 09:58 General: Frail and chronically ill-appearing but Able to give a complete and coherent history. HEENT: Moist mucous membranes, normal sclera with reactive pupils, Neck: + JVD, supple Respiratory: Lungs with bibasilar crackles upper lung field wheezing is appreciated, mild tachypnea able to speak in full sentences Cardiac: Regular rate and rhythm no murmurs no bruits Abdomen: Soft, nontender, good bowel tones, no flank pain Skin: Very thin, significant skin damage, multiple various bruising, skin cancers, cutaneous horns no obvious cellulitis. Neurologic: Globally weak Grossly neurologically intact with no obvious asymmetries or abnormalities, does have his baseline peripheral neuropathy upper and lower extremities Extremities: No trauma, poor baseline perfusion with cool feet and hands at baseline. Dressings left from Wound Care over the heels are left in place. He does have 3+ lower extremity edema bilaterally Psych: Cooperative, appropriate affect, fluent speech Course Orders Ordered: ED Orders 12/30/21 10:07 XR chest 1V Stat EKG-12 Lead Stat 12/30/21 10:17 COVID19 -Nasal RAPID/Pre-Proc Stat Complete Blood Count AUTO DIFF Stat Comprehensive Metabolic Panel Stat Lipase Stat Magnesium Stat Partial Thromboplastin Time Stat Prothrombin Time INR Stat Troponin & CK Cardiac Panel Stat 12/30/21 12:39 BNP [NT-proBNP (BNP-Adult 18+)] Stat Troponin I Stat Vital Signs Vital signs: Vital Signs - 8 hr 12/30/21 09:58 12/30/21 10:00 12/30/21 11:00 Temperature 97.6 F Pulse Rate 78 70 69 Respiratory Rate 20 16 20 Blood Pressure 148/88 H 148/88 H 154/90 H Pulse Oximetry 97 97 97 Oxygen Delivery Method Room Air Room Air Room Air Oxygen Flow Rate 12/30/21 12:26 12/30/21 12:35 12/30/21 13:00 Temperature Pulse Rate 69 69 Respiratory Rate 20 24 25 H Blood Pressure 156/99 H 150/90 H Pulse Oximetry 94 88 L 94 Oxygen Delivery Method Room Air Room Air Room Air Oxygen Flow Rate 1.5 12/30/21 13:30 12/30/21 14:00 12/30/21 14:30 Temperature Pulse Rate 69 69 69 Respiratory Rate 27 H 23 15 Blood Pressure 150/102 H 157/93 H 158/106 H Pulse Oximetry 98 95 92 Oxygen Delivery Method Room Air Room Air Room Air Oxygen Flow Rate MDM - Chest Pain Lab Data Result diagrams: 12/30/21 10:17 12/30/21 10:17 Labs: Lab Results 12/30/21 12/30/21 12/30/21 Range/Units 10:17 10:17 10:17 WBC 7.0 (4.5-11.0) X10^3/uL RBC 4.45 L (4.5-5.9) X10^6/uL Hgb 13.4 L (13.5-17.5) g/dL Hct 40.5 L (41-53) % MCV 91.1 (80-100) fL MCH 30.1 (26-34) PG MCHC 33.1 (30-36) % RDW 15.3 H (11.6-14.8) % Plt Count 202 (150-400) X10^3/uL Neut % (Auto) 69.0 (50-75) % Lymph % (Auto) 19.8 L (25-40) % [place] % (Auto) 9.0 (3-14) % Eos % (Auto) 1.2 L (2-4) % Baso % (Auto) 1.0 (0-2) % Neut # (Auto) 4900 (5437-9635) /uL Lymph # (Auto) 1400 (2116-4755) /uL [place] # (Auto) 600 (0-900) /uL Eos # (Auto) 100 (0-450) /uL Baso # (Auto) 100 (0-100) /uL PT 14.6 H (10.1-12.7) SECONDS INR 1.3 (0.9-1.3) APTT 42 H (26-36) SECONDS Sodium (137-145) mmol/L Potassium (3.4-5.1) mmol/L Chloride (98-107) mmol/L Carbon Dioxide (22-32) mmol/L BUN (9-20) mg/dL Creatinine (0.66-1.25) mg/dL Estimated GFR (>60) mL/min BUN/Creatinine Ratio (6-22) Glucose (80-110) mg/dL Calcium (8.4-10.2) mg/dL Magnesium (1.6-2.3) mg/dL Total Bilirubin (0.2-1.3) mg/dL AST (17-59) IU/L ALT (<50) IU/L Alkaline Phosphatase (38-126) U/L Total Creatine Kinase (55-170) U/L CK-MB (CK-2) CK-MB (CK-2) Rel Index Troponin I (0.01-0.034) ng/mL NT-Pro-B Natriuret Pep (<450) pg/mL Total Protein (6.3-8.2) g/dL Albumin (3.5-5.0) g/dL Globulin (1.7-4.1) g/dL Albumin/Globulin Ratio (1.0-2.8) Lipase (23-300) U/L SARS-CoV-2 (PCR) Negative (Negative) 12/30/21 12/30/21 Range/Units 10:17 12:39 WBC (4.5-11.0) X10^3/uL RBC (4.5-5.9) X10^6/uL Hgb (13.5-17.5) g/dL Hct (41-53) % MCV (80-100) fL MCH (26-34) PG MCHC (30-36) % RDW (11.6-14.8) % Plt Count (150-400) X10^3/uL Neut % (Auto) (50-75) % Lymph % (Auto) (25-40) % [place] % (Auto) (3-14) % Eos % (Auto) (2-4) % Baso % (Auto) (0-2) % Neut # (Auto) (8126-5544) /uL Lymph # (Auto) (7789-0002) /uL [place] # (Auto) (0-900) /uL Eos # (Auto) (0-450) /uL Baso # (Auto) (0-100) /uL PT (10.1-12.7) SECONDS INR (0.9-1.3) APTT (26-36) SECONDS Sodium 141 (137-145) mmol/L Potassium 4.1 (3.4-5.1) mmol/L Chloride 102 (98-107) mmol/L Carbon Dioxide 25 (22-32) mmol/L BUN 28 H (9-20) mg/dL Creatinine 1.37 H (0.66-1.25) mg/dL Estimated GFR 50 L (>60) mL/min BUN/Creatinine Ratio 20.4 (6-22) Glucose 131 H (80-110) mg/dL Calcium 9.4 (8.4-10.2) mg/dL Magnesium 2.2 (1.6-2.3) mg/dL Total Bilirubin 1.2 (0.2-1.3) mg/dL AST 65 H (17-59) IU/L ALT 21 (<50) IU/L Alkaline Phosphatase 129 H (38-126) U/L Total Creatine Kinase 29 L (55-170) U/L CK-MB (CK-2) TNP CK-MB (CK-2) Rel Index TNP Troponin I 0.028 0.017 (0.01-0.034) ng/mL NT-Pro-B Natriuret Pep 9430 H (<450) pg/mL Total Protein 7.1 (6.3-8.2) g/dL Albumin 3.9 (3.5-5.0) g/dL Globulin 3.2 (1.7-4.1) g/dL Albumin/Globulin Ratio 1.2 (1.0-2.8) Lipase 34 (23-300) U/L SARS-CoV-2 (PCR) (Negative) Imaging Data Chest x-ray: Radiologist's Impression: FINDINGS: Bones: No fractures or dislocations. Symmetric appearing [id number] bilateral hip joint osteoarthritic changes are seen. No evidence of avascular necrosis of femoral head. Pelvic ring appears intact. No suspicious bony lesions. Soft tissues: The visualized bowel gas pattern is normal. No suspicious soft tissue calcifications. 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 No acute hip fracture or dislocation. No evidence of avascular necrosis. Dictated by: Jose Arriola M.D. on 12/30/2021 at 13:43 ECG Data Interpretation: Completely paced at a rate of 70 MDM Narrative Medical decision making narrative: 6-year-old gentleman with multiple chronic medical problems, he is DNR DNI but does have an implantable defibrillator. He is clearly volume overloaded. He is peripherally clamp down at his baseline and obtaining an accurate oxygen saturation has been challenging at best. We are currently covering his head and ears with warm towels to see if we can get an adequate reading on room air. He has been given 80 mg of IV Lasix. He has had a slight bump to his creatinine but does not show any acute cardiac injury. His EKG is completely paced. He would prefer to go home which I think is reasonable I am rest his oxygen saturations are truly in the low 80s. Given his comfort in speaking in full sentences I suspect that we simply are getting an accurate measurement because of his poor peripheral perfusion. Once wrapped in warm towels, oxygen saturations are 95-98% on room air. Patient and his very much prefer home discharge which seems completely appropriate at this point. Will increase his Lasix to 60 mg daily and asked that he follow-up with either his primary care doctor psychiatric social worker supervisor next week for medication changes in view of his congestive heart failure exacerbation. Questions are answered and he is safe for home discharge Discharge Plan Departure Patient Disposition: Home Clinical Impression: Acute CHF (congestive heart failure) Instructions: DI for Heart Failure Activity Restrictions/Additional Instructions: Thank you for coming in today and being so patient with your extended wait in the hallway. Fortunately, your blood work was actually relatively reassuring. It does look like you have mild congestive heart failure with a bit of extra fluid. You have been given IV Lasix in the emergency department and I want to go back to 60 mg of Lasix daily. I have sent a new prescription for this larger dose to the [facility] for you to picker Sometime within the next week you do need to see either your primary care doctor or your psychiatric social worker supervisor regarding your congestive heart failure and these medications changes If you find that you are getting worse or develop any new symptoms, please feel free to return to the emergency department for further evaluation. Prescriptions: New furosemide 40 mg tablet 60 mg PO QAM Qty: 60 2RF No Action isosorbide mononitrate 60 mg tablet extended release 24 hr 30 mg PO DAILY vit C-vit T-[id number]-yce-om-3 [Ocuvite] [id number] je-azcu-tz-mg capsule 1 cap PO DAILY multivitamin [Multiple Vitamins] Tablet 1 tab PO DAILY Qty: 0 furosemide 80 mg tablet 80 mg PO DAILY Qty: 7 0RF Rx Instructions: Take 1 tab each morning for lower extremity edema x7 days latanoprost 0.005 % drops 1 drp EYE-BOTH .HS PreserVision AREDS [id number] wsej-aw-jxro capsule 1 cap PO .qd timolol 0.5 % drops 1 drp EYE-BOTH DAILY aspirin 81 mg tablet,delayed release (DR/EC) 81 mg PO DAILY alpha lipoic acid 600 mg capsule 600 mg PO DAILY acetylcysteine [NAC] 600 mg capsule 600 mg PO DAILY Rx Instructions: administer with a meal atorvastatin 80 mg tablet 80 mg PO DAILY Qty: 90 2RF (DME) Handicap placard Qty: 1 0RF Rx Instructions: Patient meets criteria for handicap placard. Please give him 2 placards mexiletine 150 mg capsule 150 mg PO Q8H metoprolol succinate 50 mg tablet extended release 24 hr 100 mg PO BID acetaminophen 325 mg tablet 650 mg PO Q6H PRN (Reason: fever or pain) Qty: 180 0RF bimatoprost 0.03 % drops ophthalmic (eye) DAILY dorzolamide 2 % drops EYE-BOTH BID Entresto 24-26 mg tablet 1 tab PO BID omeprazole 20 mg capsule,delayed release(DR/EC) 20 mg PO DAILY Qty: 30 0RF Rx Instructions: take daily for 4 weeks senna 8.6 mg capsule 8.6 mg PO BEDTIME cholecalciferol (vitamin D3) 25 mcg (1,000 unit) capsule 25 mcg PO DAILY furosemide 20 mg tablet 20 mg PO Q OTHER DAY Rx Instructions: x3 days potassium chloride 10 mEq capsule, extended release 10 meq PO DAILY Qty: 3 0RF Rx Instructions: Take 1 tab every other day x3 days hydrochlorothiazide 12.5 mg tablet 12.5 mg PO QAM Qty: 90 3RF docusate sodium [Colace] 100 mg capsule 200 mg PO BID Qty: 360 3RF Rx Instructions: Take 2 caps each morning and evening, HOLD for diarrhea senna 8.6 mg capsule 17.2 mg PO BEDTIME PRN (Reason: No BM x2 days) Qty: 180 3RF Rx Instructions: Take 2 tabs/caps at bedtime daily as needed for NO BM in 2 days (48+ hours) mineral oil [Fleet Mineral Oil] Enema 118 ml PA DAILY PRN (Reason: constipation) Qty: 133 2RF Rx Instructions: Instill 118mL rectally daily as needed for very hard stool Referrals: Jana Webb ARNP [Primary Care Provider] -
[2021-12-30 13:26] LABS: NT-proBNP (BNP-Adult 18+) 9430 pg/mL (<450); Troponin I 0.017 ng/mL (0.01-0.034)
== END 2021-12-30 18:33 | disposition home or self-care (01) ==
PROVIDERS: Emergency Provider Emergency Medicine; PCP Nurse Practitioner
DX: I50.9 Heart failure, unspecified (principal); R07.9 Chest pain, unspecified; R06.00 Dyspnea, unspecified; Z20.822 Contact with and (suspected) exposure to COVID-19; Z95.5 Presence of coronary angioplasty implant and graft
CPT/HCPCS: 36415; 71045; 80053; 82550; 83690; 83735; 83880; 84484; 85025; 85610; 85730; 87635; 93005; 99284; C9803

== ENCOUNTER 2022-01-01 13:52 | Observation (INO) | payer MEDICARE, OTHER, SELFPAY ==
[2019-05-25 12:16] VITALS: BMI 24.1
[2022-01-01] VITALS (7 sets, daily range): BP systolic 127–155; BP diastolic 75–102; PULSE 58–74; RESP 15–24; TEMP 35.6–36; O2SAT 93–98; BMI 22.6; BMI 22.7
--- NOTE | 2022-01-01 14:01 | DI.RAD.S_ITS ---
PROCEDURE: XR CHEST 1V INDICATIONS: Shortness of breath TECHNIQUE: One view of the chest was acquired. COMPARISON: [facility], , XR CHEST 1V, 12/30/2021, 10:12. FINDINGS: Surgical changes and devices: Median sternotomy changes. Left chest wall AICD. Lungs and pleura: Small left and moderate right pleural effusions are unchanged. Diffusely increased interstitial markings have slightly worsened from the prior study in the right perihilar and mid lung regions. Mediastinum: Mediastinal contours appear normal. Heart size is normal. Bones and chest wall: No suspicious bony lesions. Overlying soft tissues appear unremarkable. IMPRESSION: Slightly worsened interstitial and airspace opacity in the right mid lung and right perihilar region. Grossly similar moderate right and small left pleural effusions. Dictated by: Liam An M.D. on 01/01/2022 at 14:52 Approved by: Liam An M.D. on 01/01/2022 at 14:53
[2022-01-01 14:25] LABS: INR 1.6 (0.9-1.3); Prothrombin Time 18.9 SECONDS (10.1-12.7)
[2022-01-01 14:26] LABS: Basophils Absolute Auto 0 /uL (0-100); Basophils Percent Auto 0.3 % (0-2); Eosinophils Absolute Auto 0 /uL (0-450); Eosinophils Percent Auto 0.1 % (2-4); Hematocrit 40.3 % (41-53); Hemoglobin 13.1 g/dL (13.5-17.5); Lymphocytes Absolute Auto 1400 /uL (1100-4500); Lymphocytes Percent Auto 17.9 % (25-40); Mean Corpuscular HGB Conc 32.5 % (30-36); Mean Corpuscular Hemoglobin 29.9 PG (26-34); Monocytes Absolute Auto 600 /uL (0-900); Monocytes Percent Auto 7.7 % (3-14); Neutrophils Absolute Auto 5700 /uL (1500-7000); Platelet Count 193 X10^3/uL (150-400); Red Blood Cell Count 4.38 X10^6/uL (4.5-5.9); Red Cell Distribution Width 15.6 % (11.6-14.8); White Blood Cell Count 7.8 X10^3/uL (4.5-11.0)
[2022-01-01 14:30] LABS: Lactate (Lactic Acid) 2.4 mmol/L (0.7-2.1)
[2022-01-01 14:31] LABS: Alanine Aminotransferase 83 IU/L (<50); Albumin 3.5 g/dL (3.5-5.0); Albumin Globulin Ratio 1.2 (1.0-2.8); Alkaline Phosphatase 174 U/L (38-126); Aspartate Aminotransferase 153 IU/L (17-59); BUN Creatinine Ratio 27.6 (6-22); Bilirubin Total 1.3 mg/dL (0.2-1.3); Blood Urea Nitrogen 43 mg/dL (9-20); Calcium 8.9 mg/dL (8.4-10.2); Carbon Dioxide 22 mmol/L (22-32); Chloride 101 mmol/L (98-107); Estimated Glomerular Filt Rate 43 mL/min (>60); Globulin 2.9 g/dL (1.7-4.1); Glucose 149 mg/dL (80-110); HEMOLYSIS < 15 (0-50); Potassium 4.1 mmol/L (3.4-5.1); Sodium 139 mmol/L (137-145); Total Protein 6.4 g/dL (6.3-8.2)
--- NOTE | 2022-01-01 14:38 | PC.NURSE ---
Pt arrived via [facility] with c/o SOB. AOx3, HR 60's, RR equal and unlabored while lying still, placed on 6L O2 by EMS however weaned to 2L in triage. Pt appears to have poor circulation and cold fingers--unable to obtain sat on hands. Probe placed on ear and intermittently reading 96% on 2L with an adequate pleth. Breath sounds diminished throughout. Pt with H/O CHF and per med list on Lasix 20mg. Unknown if pt is compliant with taking medications. Pt denies bladder or bowel issues. Pt has multiple wounds on heels of feet and arrives in wound care boots from home. Feet are edematous and blue/purple in color however 1+ pulses can be palpated. Pt denies pain. IV was placed by EMS. Labs were drawn and pt was swabbed for covid. placed on monitoring and appears to be resting comfortably in the [facility].
[2022-01-01 14:40] LABS: NT-proBNP (BNP-Adult 18+) 12200 pg/mL (<450)
[2022-01-01 14:50] LABS: Add Manual Diff / Slide Review SLIDE REVIEW
[2022-01-01 14:52] LABS: Anisocytosis 1+; Macrocytosis 1+; Nucleated Red Blood Cells 1 #/Diff; Poikilocytosis 1+
--- NOTE | 2022-01-01 15:17 | ED.SOB ---
HPI - SOB/Dyspnea General Chief Complaint: Shortness of Breath/Dyspnea Stated Complaint: SOB Time Seen by Provider: 01/01/22 15:06 Source: patient Mode of arrival: Ambulatory Limitations: no limitations History of Present Illness HPI Narrative: Patient here with son and his . Complains worsening shortness of breath with lying flat and any exertion. Patient is bedbound. Has pressure ulcers to the feet. Is on doxycycline for ulcers on the skin. Patient has history of CHF. Does have a pacemaker. Patient followed by Dr Grover. Next appointment with him is next TuesdayJanuary 05. Patient denies any pain. Has had swelling to legs as well. Chest x-ray does show worsening of CHF compared to 2 days ago. Patient was here and was given diuretics however, did get discharged home, there were no beds available that night. Related Data Home Medications Medication Instructions Recorded Confirmed multivitamin (Multiple Vitamins 1 tab PO DAILY ##0 09/25/10 01/01/22 tablet) isosorbide mononitrate 60 mg 30 mg PO DAILY 01/23/18 01/01/22 tablet,extended release 24 hr vit C 150 mg-vit E 30 unit-lutein 1 cap PO DAILY 01/23/18 01/01/22 5 hm-[id number]-ksxrj 3 150 mg capsule (Ocuvite) latanoprost 0.005 % eye drops 1 drp EYE-BOTH .HS 04/09/19 01/01/22 timolol 0.5 % eye drops 1 drp EYE-BOTH DAILY 04/09/19 01/01/22 vitamins A,C,L-ifuq-iiebnc 14,320 1 cap PO .qd 04/09/19 01/01/22 unit-226 mg-200 unit capsule (PreserVision AREDS) aspirin 81 mg tablet,delayed 81 mg PO DAILY 09/26/19 01/01/22 release metoprolol succinate 50 mg 25 mg PO BID 07/29/21 01/01/22 tablet,extended release 24 hr mexiletine 150 mg capsule 150 mg PO Q8H 09/08/21 01/01/22 bimatoprost 0.03 % eye drops 1 drp ophthalmic (eye) DAILY 11/02/21 01/01/22 dorzolamide 2 % eye drops 1 drp EYE-BOTH TID 11/02/21 01/01/22 furosemide 20 mg tablet 20 mg PO Q OTHER DAY 11/02/21 01/01/22 sennosides 8.6 mg capsule (senna) 8.6 mg PO BEDTIME 11/02/21 01/01/22 doxycycline monohydrate 100 mg 100 mg PO BID 01/01/22 01/01/22 capsule sacubitril 49 mg-valsartan 51 mg 1 tab PO BID 01/01/22 01/01/22 tablet (Entresto) Previous Rx's Medication Instructions Recorded Handicap placard #1 ea 02/12/20 acetaminophen 325 mg tablet 650 mg PO Q6H PRN fever or pain 11/02/21 #180 tabs omeprazole 20 mg capsule,delayed 20 mg PO DAILY #30 caps 11/02/21 release potassium chloride 10 mEq 10 meq PO DAILY #3 caps 11/02/21 capsule,extended release docusate sodium 100 mg capsule 200 mg PO BID #360 caps 11/09/21 (Colace) mineral oil (Fleet Mineral Oil 118 ml [place] DAILY PRN constipation 11/09/21 enema) #133 mL furosemide 40 mg tablet 60 mg PO QAM #60 tabs 12/30/21 Allergies Allergy/AdvReac Type Severity Reaction Status Date / Time clindamycin [CLINDAMYCIN] Allergy Unknown Verified 01/01/22 14:00 iodine [IODINE] Allergy Unknown Verified 01/01/22 14:00 Review of Systems Review of Systems Narrative: GENERAL: Denies chills, fatigue, malaise, fever, sweats. HEENT: Denies sinus pain, ear pain, sore throat RESPIRATORY: Positive for dyspnea, negative cough CARDIOVASCULAR: Denies chest pain, palpitations, positive peripheral edema GASTROINTESTINAL: Denies nausea, vomiting, abdominal pain : Denies dysuria, frequency, hematuria MUSCULOSKELETAL: denies muscle or bony pain SKIN: Denies rash, skin lesions NEUROLOGIC: Denies weakness, numbness ROS Unobtainable: All systems reviewed & are unremarkable except as noted in HPI and below Patient History Medical History Actinic keratosis Atrial fibrillation Balance disorder Basal cell carcinoma Bradycardia Cardiomyopathy Carpal tunnel syndrome Cataracts, bilateral Coronary artery disease Cyst, nasal sinus (1971) Degenerative joint disease involving multiple joints Edema noted on examination Erectile dysfunction Failure of right total hip arthroplasty Frailty syndrome in geriatric patient Frequent falls Glaucoma Heart murmur History of placement of internal cardiac defibrillator (04/2012) Hyperlipemia Hypertension Ischemic cardiomyopathy Macular degeneration Mixed hyperlipidemia Myocardial infarction (1996) Non-sustained ventricular tachycardia Peripheral neuropathy (02/2019) Recurrent ventricular tachycardia Squamous cell carcinoma Vitreous floaters of right eye Surgical History AICD (automatic cardioverter/defibrillator) present (~04/2012) History of carpal tunnel release (01/2006) History of Mohs surgery for squamous cell carcinoma of skin (2013) Hx of bilateral hip replacements (2008) Hx of cardiac catheterization (~1996) Hx of cardiac catheterization (07/06/11) Hx of cataract surgery Hx of coronary artery bypass graft S/P CABG x 2 (~2011) Family History Father Enlarged heart Stroke Mother Stroke Brother Cirrhosis Social History household members: spouse Smoking Status: Former smoker second hand exposure: No alcohol intake: former substance use type: does not use Smoking Status: Former smoker Substance Use Type: does not use Exam Narrative Exam Narrative: GENERAL: in no distress, not toxic not dyspneic HEAD: Normocephalic. EYES: Pupils equal round No scleral icterus. ENT: Mucous membranes moist. NECK: Trachea midline. CARDIOVASCULAR: Regular rate and rhythm without murmurs RESPIRATORY: Patient on 2 L nasal cannula. He is not on oxygen at home. Has rales bibasilar, no wheezing. Speaking full sentences at this time. GASTROINTESTINAL: Abdomen soft, non-tender EXTREMITIES: No gross deformities. 3+ bilateral pedal edema and leg edema. BACK: No flank tenderness. NEURO: AOx4. SKIN: Warm and dry PSYCH: Not anxious, is cooperative Initial Vital Signs Initial Vital Signs: Vital Signs Temperature 96.0 F L 01/01/22 13:56 Pulse Rate 58 L 01/01/22 13:56 Respiratory Rate 15 01/01/22 13:56 Blood Pressure 155/83 H 01/01/22 13:56 Pulse Oximetry 98 01/01/22 13:56 Oxygen Delivery Method 01/01/22 13:56 Course Course Course Narrative: No new issues during course of stay Decision to Admit Date: 01/01/22 Decision to Admit time: 15:22 Orders Ordered: ED Orders 01/04/22 06:31 Complete Blood Count AUTO DIFF DAILY Comprehensive Metabolic Panel DAILY Magnesium DAILY Acetaminophen (Acetaminophen 325 Mg Tablet) 975 mg PO Q8H PRN PRN Reason: Pain, Mild (1-3) Last Admin: 01/01/22 21:37 Dose: 975 mg Documented By: MALINDA Aspirin (Aspirin Ec 81 Mg Tablet) 81 mg PO DAILY [facility] Last Admin: 01/03/22 12:27 Dose: 81 mg Documented By: Admin: 01/02/22 10:38 Dose: 81 mg Documented By: ANNA Atorvastatin Calcium (Atorvastatin 20 Mg Tablet) 40 mg PO DAILY [facility] Last Admin: 01/03/22 12:27 Dose: 40 mg Documented By: Admin: 01/02/22 10:37 Dose: 40 mg Documented By: ANNA Docusate Sodium (Docusate 100 Mg Capsule) 200 mg PO BID [facility] Last Admin: 01/03/22 20:03 Dose: 200 mg Documented By: Admin: 01/03/22 12:28 Dose: 200 mg Documented By: Admin: 01/02/22 22:03 Dose: 200 mg Documented By: Admin: 01/02/22 10:38 Dose: 200 mg Documented By: Admin: 01/01/22 21:37 Dose: 200 mg Documented By: MALINDA Dorzolamide HCl (Dorzolamide 2% Ophth 10 Ml) 1 drops EYE-BOTH TID [facility] Last Admin: 01/03/22 20:03 Dose: 1 drops Documented By: Admin: 01/03/22 16:00 Dose: Not Given Documented By: Admin: 01/03/22 12:35 Dose: 1 drops Documented By: Admin: 01/02/22 22:09 Dose: 1 drops Documented By: Admin: 01/02/22 18:11 Dose: Not Given Documented By: Admin: 01/02/22 10:40 Dose: 1 drops Documented By: Admin: 01/01/22 21:44 Dose: Not Given Documented By: MALINDA Doxycycline Hyclate (Doxycycline Hyclate 100 Mg Tablet) 100 mg PO BID [facility] Stop: 01/07/22 21:00 Last Admin: 01/03/22 20:04 Dose: 100 mg Documented By: Admin: 01/03/22 12:30 Dose: 100 mg Documented By: Admin: 01/02/22 22:03 Dose: 100 mg Documented By: Admin: 01/02/22 10:38 Dose: 100 mg Documented By: Admin: 01/01/22 21:38 Dose: 100 mg Documented By: Enoxaparin Sodium (Enoxaparin 40 Mg/0.4 Ml Syringe) 40 mg SUBCUT DAILY [facility] Last Admin: 01/03/22 12:30 Dose: 40 mg Documented By: Admin: 01/02/22 10:39 Dose: 40 mg Documented By: ANNA Furosemide (Furosemide 40 Mg/4 Ml Vial) 40 mg IV 0800,1500 [facility] Last Admin: 01/04/22 10:50 Dose: 40 mg Documented By: Admin: 01/03/22 16:41 Dose: 40 mg Documented By: Admin: 01/03/22 10:00 Dose: 40 mg Documented By: Admin: 01/02/22 18:17 Dose: 40 mg Documented By: Admin: 01/02/22 10:39 Dose: 40 mg Documented By: ANNA Isosorbide Mononitrate (Isosorbide Mononitrate Er 30 Mg Tablet) 30 mg PO DAILY [facility] Last Admin: 01/03/22 12:30 Dose: 30 mg Documented By: Admin: 01/02/22 10:38 Dose: 30 mg Documented By: ANNA Lutein (Vit C/E/Zn/Coppr/Lutein/Zeaxan Capsule) 1 cap PO DAILY [facility] Last Admin: 01/03/22 12:32 Dose: 1 cap Documented By: NAKIA Metoprolol Succinate (Metoprolol Er 50 Mg Tablet) 25 mg PO BID [facility] Last Admin: 01/03/22 20:05 Dose: 25 mg Documented By: Admin: 01/03/22 12:31 Dose: 25 mg Documented By: Admin: 01/02/22 22:05 Dose: 25 mg Documented By: Admin: 01/02/22 10:38 Dose: 25 mg Documented By: Admin: 01/01/22 21:38 Dose: 25 mg Documented By: Multivitamins (Multivitamin 1 Tablet) 1 tab PO DAILY [facility] Last Admin: 01/03/22 12:31 Dose: 1 tab Documented By: Admin: 01/02/22 10:41 Dose: 1 tab Documented By: ANNA Non-Formulary Medication (Acetylcysteine [Nac]) 600 mg PO DAILY [facility] Last Admin: 01/03/22 10:01 Dose: Not Given Documented By: Admin: 01/02/22 13:54 Dose: Not Given Documented By: ANNA Mexiletine 150 Mg (Capsule) 150 mg PO Q8H [facility] Last Admin: 01/04/22 01:00 Dose: 150 mg Documented By: Admin: 01/03/22 17:29 Dose: 150 mg Documented By: Admin: 01/03/22 12:31 Dose: 150 mg Documented By: Admin: 01/03/22 05:08 Dose: 150 mg Documented By: Admin: 01/02/22 22:02 Dose: 150 mg Documented By: Admin: 01/02/22 13:54 Dose: 150 mg Documented By: ANNA Sacubitril-Valsartan [Entresto] 24-26 Mg Tablet 1 tab PO BID [facility] Last Admin: 01/03/22 20:05 Dose: 1 tab Documented By: Admin: 01/03/22 12:31 Dose: 1 tab Documented By: Admin: 01/02/22 22:04 Dose: 1 tab Documented By: Admin: 01/02/22 13:54 Dose: 1 tab Documented By: Admin: 01/01/22 21:44 Dose: Not Given Documented By: MALINDA Bimatoprost 0.03 % (Drops) 1 drop EYE-BOTH BEDTIME [facility] Last Admin: 01/03/22 20:04 Dose: 1 drop Documented By: Admin: 01/02/22 22:00 Dose: 1 drop Documented By: MALINDA Ondansetron HCl (Ondansetron 4 Mg/2 Ml Inj) 4 mg IV Q8HR PRN PRN Reason: Nausea And Vomiting Pantoprazole Sodium (Pantoprazole Dr 20 Mg Tablet) 20 mg PO 0600 [facility] Last Admin: 01/04/22 10:48 Dose: Not Given Documented By: Admin: 01/03/22 05:08 Dose: 20 mg Documented By: MALINDA Sennosides (Sennosides 8.6 Mg Tablet) 8.6 mg PO BEDTIME [facility] Last Admin: 01/03/22 20:04 Dose: 8.6 mg Documented By: Admin: 01/02/22 22:03 Dose: 8.6 mg Documented By: Admin: 01/01/22 21:37 Dose: 8.6 mg Documented By: MALINDA Timolol Maleate (Timolol 0.5% Ophth) 1 drops EYE-BOTH DAILY [facility] Last Admin: 01/02/22 22:10 Dose: 1 drop Documented By: Admin: 01/02/22 10:39 Dose: 1 drops Documented By: ANNA Vitamin D (Cholecalciferol (Vitamin D3) 1,000 Unit Tablet) 1,000 unit PO DAILY [facility] Last Admin: 01/03/22 12:28 Dose: 1,000 unit Documented By: Admin: 01/02/22 10:37 Dose: 1,000 unit Documented By: ANNA Discontinued Medications Doxycycline Hyclate (Doxycycline Hyclate 100 Mg Tablet) 100 mg PO BID [facility] Last Admin: 01/02/22 10:30 Dose: 100 mg Documented By: ANNA Furosemide (Furosemide 100 Mg/10 Ml Vial) 60 mg IV NOW ONE Stop: 01/01/22 15:18 Last Admin: 01/01/22 15:39 Dose: 60 mg Documented By: JONATHAN Latanoprost (Latanoprost 0.005% Ophth 2.5 Ml) 1 drops EYE-BOTH .HS [facility] Latanoprost (Latanoprost 0.005% Ophth 2.5 Ml) 1 drops EYE-BOTH BEDTIME [facility] Non-Formulary Medication (Sennosides [Senna]) 8.6 mg PO BEDTIME [facility] Non-Formulary Medication (Multivitamin [Multiple Vitamins]) 1 tab PO DAILY [facility] Non-Formulary Medication (Timolol) 1 drop EYE-BOTH DAILY [facility] Non-Formulary Medication (Vitamins A,C,K-Akpo-Fbmcwj [Preservision Areds]) 1 cap PO .qd [facility] Potassium Chloride (Potassium Chloride 20 Meq Tab) 40 meq PO NOW ONE Stop: 01/03/22 10:33 Last Admin: 01/03/22 12:35 Dose: 40 meq Documented By: NAKIA Reevaluation(s) Reevaluation #1: Patient and family agree for admit. Reviewed the results with them. Time: 15:27 Consultations Consultation #1: Spoke with hospitalist dr pearson, will admit Time: 15:27 Vital Signs Vital signs: Vital Signs - 8 hr 01/01/22 13:56 Temperature 96.0 F L Pulse Rate 58 L Respiratory Rate 15 Blood Pressure 155/83 H Pulse Oximetry 98 Oxygen Delivery Method Room Air MDM - SOB/Dyspnea Differential Diagnosis Differential diagnosis: Likely acute exacerbation of chronic obstructive airways disease, congestive heart failure and community acquired pneumonia Lab Data Result diagrams: 01/04/22 06:31 01/04/22 06:31 Labs: Lab Results 01/01/22 01/01/22 01/01/22 Range/Units 14:04 14:04 14:04 WBC 7.8 (4.5-11.0) X10^3/uL RBC 4.38 L (4.5-5.9) X10^6/uL Hgb 13.1 L (13.5-17.5) g/dL Hct 40.3 L (41-53) % MCV 92.0 (80-100) fL MCH 29.9 (26-34) PG MCHC 32.5 (30-36) % RDW 15.6 H (11.6-14.8) % Plt Count 193 (150-400) X10^3/uL Neut % (Auto) 74.0 (50-75) % Lymph % (Auto) 17.9 L (25-40) % [place] % (Auto) 7.7 (3-14) % Eos % (Auto) 0.1 L (2-4) % Baso % (Auto) 0.3 (0-2) % Neut # (Auto) 5700 (6055-3380) /uL Lymph # (Auto) 1400 (9686-9244) /uL [place] # (Auto) 600 (0-900) /uL Eos # (Auto) 0 (0-450) /uL Baso # (Auto) 0 (0-100) /uL Nucleated RBCs 1 H ( - 0) #/Diff RBC Morphology See below Poikilocytosis 1+ H Anisocytosis 1+ H Macrocytosis 1+ H PT 18.9 H (10.1-12.7) SECONDS INR 1.6 H (0.9-1.3) Sodium 139 (137-145) mmol/L Potassium 4.1 (3.4-5.1) mmol/L Chloride 101 (98-107) mmol/L Carbon Dioxide 22 (22-32) mmol/L BUN 43 H (9-20) mg/dL Creatinine 1.56 H (0.66-1.25) mg/dL Estimated GFR 43 L (>60) mL/min BUN/Creatinine Ratio 27.6 H (6-22) Glucose 149 H (80-110) mg/dL Lactate (0.7-2.1) mmol/L Calcium 8.9 (8.4-10.2) mg/dL Total Bilirubin 1.3 (0.2-1.3) mg/dL AST 153 H (17-59) IU/L ALT 83 H (<50) IU/L Alkaline Phosphatase 174 H (38-126) U/L NT-Pro-B Natriuret Pep 44754 H (<450) pg/mL Total Protein 6.4 (6.3-8.2) g/dL Albumin 3.5 (3.5-5.0) g/dL Globulin 2.9 (1.7-4.1) g/dL Albumin/Globulin Ratio 1.2 (1.0-2.8) SARS-CoV-2 (PCR) (Negative) 01/01/22 01/01/22 Range/Units 14:04 14:07 WBC (4.5-11.0) X10^3/uL RBC (4.5-5.9) X10^6/uL Hgb (13.5-17.5) g/dL Hct (41-53) % MCV (80-100) fL MCH (26-34) PG MCHC (30-36) % RDW (11.6-14.8) % Plt Count (150-400) X10^3/uL Neut % (Auto) (50-75) % Lymph % (Auto) (25-40) % [place] % (Auto) (3-14) % Eos % (Auto) (2-4) % Baso % (Auto) (0-2) % Neut # (Auto) (7319-0881) /uL Lymph # (Auto) (7155-0143) /uL [place] # (Auto) (0-900) /uL Eos # (Auto) (0-450) /uL Baso # (Auto) (0-100) /uL Nucleated RBCs ( - 0) #/Diff RBC Morphology Poikilocytosis Anisocytosis Macrocytosis PT (10.1-12.7) SECONDS INR (0.9-1.3) Sodium (137-145) mmol/L Potassium (3.4-5.1) mmol/L Chloride (98-107) mmol/L Carbon Dioxide (22-32) mmol/L BUN (9-20) mg/dL Creatinine (0.66-1.25) mg/dL Estimated GFR (>60) mL/min BUN/Creatinine Ratio (6-22) Glucose (80-110) mg/dL Lactate 2.4 H (0.7-2.1) mmol/L Calcium (8.4-10.2) mg/dL Total Bilirubin (0.2-1.3) mg/dL AST (17-59) IU/L ALT (<50) IU/L Alkaline Phosphatase (38-126) U/L NT-Pro-B Natriuret Pep (<450) pg/mL Total Protein (6.3-8.2) g/dL Albumin (3.5-5.0) g/dL Globulin (1.7-4.1) g/dL Albumin/Globulin Ratio (1.0-2.8) SARS-CoV-2 (PCR) Negative (Negative) Imaging Data Chest x-ray: Radiologist's Impression: [address] [address] XRay Report Signed Patient: Srini Hernandez MR#: [id number] : 1935 Acct:[id number] Age/Sex: 86 / M Date of Service: 01/01/22 Loc: ED Accession Number: [id number] ?? Procedure: XR chest 1V Ordering Provider: Blake Mixon MD PROCEDURE:? XR CHEST 1V ? INDICATIONS:? Shortness of breath ? TECHNIQUE:? One view of the chest was acquired.? ? COMPARISON:? [facility], CR, XR CHEST 1V, 12/30/2021, 10:12. ? FINDINGS:? ? Surgical changes and devices:? Median sternotomy changes.? Left chest wall AICD. ? Lungs and pleura:? Small left and moderate right pleural effusions are unchanged.? Diffusely increased interstitial markings have slightly worsened from the prior study in the right perihilar and mid lung regions. ? Mediastinum:? Mediastinal contours appear normal.? Heart size is normal.? ? Bones and chest wall:? No suspicious bony lesions.? Overlying soft tissues appear unremarkable.? ? IMPRESSION:? Slightly worsened interstitial and airspace opacity in the right mid lung and right perihilar region.? Grossly similar moderate right and small left pleural effusions. ? ? Dictated by: Liam An M.D. on 01/01/2022 at 14:52 ? ? Approved by: Liam An M.D. on 01/01/2022 at 14:53 ? ECG Data Interpretation: Ventricular paced rhythm rate [address] elevation or depression MDM Narrative Medical decision making narrative: Appropriate for admission, failed attempt 2 days ago to discharge home after diuresing. Patient and family agree for admit. Reviewed with hospitalist and agrees for admit. Discharge Plan Departure Patient Disposition: Admitted as Observation Clinical Impression: Acute CHF (congestive heart failure) Admit Date/Time: 01/01/22 15:28 Admit Provider: Cipriano Pearson
[2022-01-01 15:22] LABS: COVID19 -Nasal RAPID Negative (Negative)
[2022-01-01] MEDS: FUROSEMIDE 100 MG/10 ML VIAL 60 MG IV (15:39)
[2022-01-01 16:21] LABS: Reflexed Lactate in 2 Hours Y
[2022-01-01 16:58] LABS: Lactate 2HR (Lactic Acid Rflx) 1.7 mmol/L (0.7-2.1)
--- NOTE | 2022-01-01 17:06 | PC.NURSE ---
Addendum entered by Dipika Patel R.N. 01/01/22 18:22: Patient is resting comfortably. Denies pain. Using the urinal at bedside. Original Note: Assess- Patient is alert and oriented x4. Lung sounds are clear at this time and heart rate regular. Patient is on 2l of oxygen and satting in the high 90s. He states that he does not walk and is chair bound. Patient has multiple skin issues, he does have dressings bilaterally to his heels, with wound boots in place (heel protectors). The wound nurse changed his dressings today at 1100 and patient does not want us to take them off today. is in room and states that patients left heel is infected and was placed on antibiotics. He denies pain at this time. His feet and hands are extremely cold, he does have bilateral pulses. Patient states that he has some necrotic area's on his heels. Will check with patient again tomorrow to see if we can stage his wounds and take photos.
--- NOTE | 2022-01-01 18:52 | P.HP_ITS ---
History of Present Illness History of Present Illness Date Patient Seen: 01/01/22 Time Patient Seen: 18:30 Chief complaint: SOB Narrative: This is an 86-year-old male with a past medical history of ischemic cardiomyopathy, chronic systolic heart failure with an EF of 25-30%, recurrent VT AICD placement, peripheral artery disease, hypertension, hyperlipidemia, per ipheral neuropathy, chronic lower extremity wounds currently on outpatient oral antibiotics from wound care who presents with worsening weakness, decreasing appetite / early satiety, and shortness of breath. He was in the ER a few nights ago for similar symptoms, he was sent home on increased lasix dosing but this was ineffective. Two weeks prior he was given 80 mg of lasix which then went back to his usual 20 but had reaccumulation of fluid. He reports weight gain of about 3 lbs in the past few days. He is wheelchair bound predominantly but can use a walker ususally for short distances, though for the past few weeks he has not been able to do that. In the emergency room, he did desaturate to 80% on room air and was placed on 2 L via nasal cannula. Chest x-ray showed worsening volume overload and pleural effusions compared to chest x-ray from just 2 days ago when he was in the emergency room. Laboratory evaluation mild elevation in his INR, elevation in his creatinine to 1.56, usually this is around 1.0-1.1. There is also mild elevations in his AST and ALT to 153 and 83 respectively. Total bil[place] 1[place] [address], up from 9000 a few days ago. COVID-19 was negative. Patient was admitted for further evaluation acute on chronic systolic heart failure after failing outpatient management. Patient History Medical History Actinic keratosis Atrial fibrillation Balance disorder Basal cell carcinoma Bradycardia Cardiomyopathy Carpal tunnel syndrome Cataracts, bilateral Coronary artery disease Cyst, nasal sinus (1971) Degenerative joint disease involving multiple joints Edema noted on examination Erectile dysfunction Failure of right total hip arthroplasty Frailty syndrome in geriatric patient Frequent falls Glaucoma Heart murmur History of placement of internal cardiac defibrillator (04/2012) Hyperlipemia Hypertension Ischemic cardiomyopathy Macular degeneration Mixed hyperlipidemia Myocardial infarction (1996) Non-sustained ventricular tachycardia Peripheral neuropathy (02/2019) Recurrent ventricular tachycardia Squamous cell carcinoma Vitreous floaters of right eye Surgical History AICD (automatic cardioverter/defibrillator) present (~04/2012) History of carpal tunnel release (01/2006) History of Mohs surgery for squamous cell carcinoma of skin (2013) Hx of bilateral hip replacements (2008) Hx of cardiac catheterization (~1996) Hx of cardiac catheterization (07/06/11) Hx of cataract surgery Hx of coronary artery bypass graft S/P CABG x 2 (~2011) Family & Social History Family History Father Enlarged heart Stroke Mother Stroke Brother Cirrhosis Social History: household members spouse Prior Living Arrangements House Safety & Behavioral: Feels Safe in Current Yes Environment Been Physically Hurt or No Threatened By a Person Tobacco & Substance use: Tobacco type cigarettes Smoking Status Former smoker alcohol intake former Substance Use Type does not use Meds Home Medications and Allergies Home Medications Medication Instructions Recorded Confirmed Type multivitamin (Multiple Vitamins 1 tab PO DAILY ##0 09/25/10 01/01/22 History tablet) isosorbide mononitrate 60 mg 30 mg PO DAILY 01/23/18 01/01/22 History tablet,extended release 24 hr vit C 150 mg-vit E 30 unit-lutein 1 cap PO DAILY 01/23/18 01/01/22 History 5 tq-xyqznptt-rnlak 3 150 mg capsule (Ocuvite) latanoprost 0.005 % eye drops 1 drp EYE-BOTH .HS 04/09/19 01/01/22 History timolol 0.5 % eye drops 1 drp EYE-BOTH DAILY 04/09/19 01/01/22 History vitamins A,C,Q-smvb-wrvgvx 14,320 1 cap PO .qd 04/09/19 01/01/22 History unit-226 mg-200 unit capsule (PreserVision AREDS) aspirin 81 mg tablet,delayed 81 mg PO DAILY 09/26/19 01/01/22 History release Handicap placard #1 ea 02/12/20 01/01/22 Rx acetylcysteine 600 mg capsule (NAC) 600 mg PO DAILY 02/12/20 01/01/22 History alpha lipoic acid 600 mg capsule 600 mg PO DAILY 02/12/20 01/01/22 History metoprolol succinate 50 mg 25 mg PO BID 07/29/21 01/01/22 History tablet,extended release 24 hr mexiletine 150 mg capsule 150 mg PO Q8H 09/08/21 01/01/22 History acetaminophen 325 mg tablet 650 mg PO Q6H PRN fever or pain 11/02/21 01/01/22 Rx #180 tabs bimatoprost 0.03 % eye drops 1 drp ophthalmic (eye) DAILY 11/02/21 01/01/22 History cholecalciferol (vitamin D3) 25 25 mcg PO DAILY 11/02/21 01/01/22 History mcg (1,000 unit) capsule dorzolamide 2 % eye drops 1 drp EYE-BOTH TID 11/02/21 01/01/22 History furosemide 20 mg tablet 20 mg PO Q OTHER DAY 11/02/21 01/01/22 History omeprazole 20 mg capsule,delayed 20 mg PO DAILY #30 caps 11/02/21 01/01/22 Rx release potassium chloride 10 mEq 10 meq PO DAILY #3 caps 11/02/21 01/01/22 Rx capsule,extended release sennosides 8.6 mg capsule (senna) 8.6 mg PO BEDTIME 11/02/21 01/01/22 History docusate sodium 100 mg capsule 200 mg PO BID #360 caps 11/09/21 01/01/22 Rx (Colace) mineral oil (Fleet Mineral Oil 118 ml DC DAILY PRN constipation 11/09/21 01/01/22 Rx enema) #133 mL furosemide 40 mg tablet 60 mg PO QAM #60 tabs 12/30/21 01/01/22 Rx atorvastatin 80 mg tablet 40 mg PO DAILY 01/01/22 01/01/22 History doxycycline monohydrate 100 mg 100 mg PO BID 01/01/22 01/01/22 History capsule sacubitril 49 mg-valsartan 51 mg 1 tab PO BID 01/01/22 01/01/22 History tablet (Entresto) Allergies Allergy/AdvReac Type Severity Reaction Status Date / Time clindamycin [CLINDAMYCIN] Allergy Unknown Verified 01/01/22 14:00 iodine [IODINE] Allergy Unknown Verified 01/01/22 14:00 Review of Systems Review of Systems Narrative: All other systems reviewed with the patient and are negative unless otherwise stated. Exam Vital Signs (past 8 hours): - 01/01/22 13:56 01/01/22 15:32 01/01/22 15:32 Temperature 96.0 F L Pulse Rate 58 L 70 70 Respiratory Rate 15 24 20 Blood Pressure 155/83 H 137/102 H Pulse Oximetry 98 93 Oxygen Delivery Method Room Air Oxygen Flow Rate 01/01/22 16:25 Temperature Pulse Rate Respiratory Rate Blood Pressure Pulse Oximetry Oxygen Delivery Method Room Air Oxygen Flow Rate 2 Oxygen Delivery Method Room Air Oxygen Flow Rate 2 Narrative Exam Narrative: General:? Patient is chronically ill appearing elderly male, no acute distress, short of breath with minimal symptoms. HEENT:? Normocephalic, atraumatic, extraocular muscles intact, oral pharynx is clear and mucous membranes are moist. Neck: supple and symmetric, trachea is midline, no cervical adenopathy. Negative for JVD Chest:? Normal AP diameter and contour without kyphoscoliosis, no tachypnea, equal chest rise bilaterally. Lungs:? Decreased breath sounds bilateral lung bases with bibasilar crackles to the lower 3rd of his lung alanis. Cardio:?RRR no m/r/g. Abdomen: S NT ND. Musculoskeletal:? Muscle strength and tone are equal within normal limits, no deformity. Extremities: trace to 1+ LE edema bilaterally. No joint effusions. Feet are cold and purplish, chronic per patient. Toes have nail fungus. Skin:?left heel with 2-3 cm heel ulceration with granulation tissue, appears clean without purulence or surrounding erythema. Neuro:? Alert and orientated x3,? sensation to touch intact in all extremities, no gross deficits noted of cranial nerves. Psych:? Patient has a well-kept appearance, appropriate affect, mental status attitude thought context and judgment are appropriate for age. Objective Labs Result Diagrams: 01/01/22 14:04 01/01/22 14:04 Labs: Laboratory Results - last 24 hr 01/01/22 01/01/22 01/01/22 14:04 14:04 14:04 WBC 7.8 RBC 4.38 L Hgb 13.1 L Hct 40.3 L MCV 92.0 MCH 29.9 MCHC 32.5 RDW 15.6 H Plt Count 193 Neut % (Auto) 74.0 Lymph % (Auto) 17.9 L [place] % (Auto) 7.7 Eos % (Auto) 0.1 L Baso % (Auto) 0.3 Neut # (Auto) 5700 Lymph # (Auto) 1400 [place] # (Auto) 600 Eos # (Auto) 0 Baso # (Auto) 0 Nucleated RBCs 1 H RBC Morphology See below Poikilocytosis 1+ H Anisocytosis 1+ H Macrocytosis 1+ H PT 18.9 H INR 1.6 H Sodium 139 Potassium 4.1 Chloride 101 Carbon Dioxide 22 BUN 43 H Creatinine 1.56 H Estimated GFR 43 L BUN/Creatinine Ratio 27.6 H Glucose 149 H Lactate Calcium 8.9 Total Bilirubin 1.3 AST 153 H ALT 83 H Alkaline Phosphatase 174 H NT-Pro-B Natriuret Pep 93814 H Total Protein 6.4 Albumin 3.5 Globulin 2.9 Albumin/Globulin Ratio 1.2 SARS-CoV-2 (PCR) 01/01/22 01/01/22 01/01/22 14:04 14:07 16:40 WBC RBC Hgb Hct MCV MCH MCHC RDW Plt Count Neut % (Auto) Lymph % (Auto) [place] % (Auto) Eos % (Auto) Baso % (Auto) Neut # (Auto) Lymph # (Auto) [place] # (Auto) Eos # (Auto) Baso # (Auto) Nucleated RBCs RBC Morphology Poikilocytosis Anisocytosis Macrocytosis PT INR Sodium Potassium Chloride Carbon Dioxide BUN Creatinine Estimated GFR BUN/Creatinine Ratio Glucose Lactate 2.4 H 1.7 Calcium Total Bilirubin AST ALT Alkaline Phosphatase NT-Pro-B Natriuret Pep Total Protein Albumin Globulin Albumin/Globulin Ratio SARS-CoV-2 (PCR) Negative Assessment & Plan Assessment & Plan narrative: 1. Acute on chronic systolic heart failure, present on admission - continue IV lasix, 40 mg IV BID - track weight and Intake and Output - TTE ordered, last was 09/2021 but significant decline since. - last EF 25-30%. also has AICD in place for recurrent VT. - continue telemetry 2. Acute respiratory failure hypoxia - secondary to CHF, patient was 88% on room air in the ER. He has improved after lasix therapy in the ER - consider thoracentesis depending on if continued hypoxia given pleural effusions, though these are small in size. 3. Chronic lower extremity wounds on outpatient oral antibiotic - continue outpatient antibiotics - left heel with granulation tissue, no obvious cellulitis or purulence. - continue dressing changes, follows with wound care and Dr. Pérez. 4. Hypertension - continue home medications 5. Hyperlipidemia - continue home medications 6. Congestive hepatopathy - elevated INR and elevated liver enzymes. Suspect due to volume overload. - consider abdominal ultrasound, but no current pain or symptoms of biliary disease. 7. TRAE - suspect secondary to hypervolemia, continue diuresis as noted above. Code: DNR, surrogate decision maker is the patient's spouse DVT: Lovenox Dispo: Patient is admitted under observation status as his stay is not expected to exceed 2 midnights I have utilized all available immediate resources to obtain, update, or review the patient's current medications. Time Spent With Patient Critical Care time: I spent a total of [] minutes of critical care time on this patient's care today; this time is exclusive of procedural time. Quality VTE Deep Vein Thrombosis/Pulmonary Embolism Present on Admission: No MIPS - Admit I confirm the patient?s Advance Care Plan is present, Code status is documented, Surrogate decision maker is in patient?s record [If Yes, STOP here]: Yes
--- NOTE | 2022-01-01 19:44 | DI.ECHO.S_ITS ---
[facility] +---------+ : : [address] [place] : : : : [id number] : : : : Phone: [phone]+ Echocardiogram Report + + :Name: CHACORTA PAYAN Study Date: 01/02/2022 Height: 72 in : :[facility] ReadingLocation: Weight: 167 lb : : Gender: Male BSA: 2.0 m2 : :: 1935 Age: 86 yrs BP: 141/91 mmHg: :Reason For Study: SHORTNESS OF BREATH : :Ordering Physician: AMI, : :JEFFY LIZARRAGA Performed By: Latonia Coleman : :Referring: JEFFY MUELLER : + + Interpretation Summary The left ventricle is mildly dilated. The ejection fraction is estimated to be 15-20%. Previous LV ejection fraction 25 to 30%. Compared to the prior exam, the left ventricular function is reduced. Overall moderate to severe global hypokinesis with akinetic inferior wall, basal to mid posterior lateral wall, basal inferior septum. Worsening global hypokinesis. E/E' med: 27.8. Suggests elevated LV filling pressure. The right ventricle is normal size. Right ventricular systolic function is moderate to severely reduced. There is a pacemaker lead in the right ventricle. Right ventricular systolic function has decreased since previous exam. There is moderate to severe mitral regurgitation. Compared to the prior echo study, there has been an increase in the severity of mitral regurgitation. There is moderate tricuspid regurgitation. Compared to the prior echo exam, there has been an increase in TR severity. The right ventricular systolic pressure is estimated to be at least 48 mmHg based on an estimated right atrial pressure of 8 mm Hg. Compared to the prior echo exam, there has been an increase in the severity of pulmonary hypertension. Mild atherosclerotic plaque(s) in the aortic arch. Procedure: A two-dimensional transthoracic echocardiogram with color flow and Doppler was performed. The study quality was technically adequate. Comparison is made with the echocardiogram of 09/09/2021. The heart rate ranged between 69-77 bpm during the study. The patient has a paced rhythm. Left Ventricle: The left ventricle is mildly dilated. Left ventricular wall thickness is borderline increased. There is no thrombus. The ejection fraction is estimated to be 15-20%. Compared to the prior exam, the left ventricular function is reduced. Overall moderate to severe global hypokinesis with akinetic inferior wall, basal to mid posterior lateral wall, basal inferior septum. Worsening global hypokinesis. E/E' med: 27.8. Suggests elevated LV filling pressure. Right Ventricle: There is a pacemaker lead in the right ventricle. The right ventricle is normal size. Right ventricular systolic function is moderate to severely reduced. Right ventricular systolic function has decreased since previous exam. Atria: The left atrium is moderately dilated. The left atrium has mildly increased in size since the prior echo exam. Right atrial size is normal. There is no Doppler evidence for an interatrial shunt. Mitral Valve: The mitral valve leaflets are mildly calcified. There is mild to moderate mitral annular calcification. There is moderate to severe mitral regurgitation. Compared to the prior echo study, there has been an increase in the severity of mitral regurgitation. Aortic Valve: The aortic valve is trileaflet. The aortic valve is mildly calcified. The aortic valve opens well. There is discrete nodular thickening of the non- coronary cusp. There is no aortic valve stenosis. No aortic regurgitation is present. Tricuspid Valve: The tricuspid valve leaflets are thickened and/or calcified, but open well. There is moderate tricuspid regurgitation. The right ventricular systolic pressure is estimated to be at least 48 mmHg based on an estimated right atrial pressure of 8 mm Hg. Compared to the prior echo exam, there has been an increase in TR severity. Compared to the prior echo exam, there has been an increase in the severity of pulmonary hypertension. Pulmonic Valve: The pulmonic valve leaflets appear thickened, but open well. There is moderate pulmonic regurgitation. Great Vessels: The aortic root is normal size. The dimensions of the ascending aorta are normal. Mild atherosclerotic plaque(s) in the aortic arch. The IVC is of normal diameter and collapses less than 50% with a sniff. This suggests a right atrial pressure of 8 mm Hg. Pericardium/ Pleura There is no pericardial effusion. There is no pleural effusion. MMode/2D Measurements & Calculations LVIDd: 6.0 cm LVOT diam: 2.3 cm LVIDs: 5.3 cm Ao root diam: 3.5 cm FS: 11.2 % asc Aorta Diam: 3.4 cm IVSd: 1.1 cm Ao Arch Diam (Prox Trans): 2.4 cm LVPWd: 0.89 cm LV james. diameter/BSA (cm/m^2): 3.0 LV sys. diameter/BSA (cm/m^2): 2.7 LA A2 area: 25.4 cm2 RA long axis: 5.7 cm LA A4 area: 23.7 cm2 RA area: 20.2 cm2 LA length (vol): 6.2 cm RA vol: 60.6 ml LA vol: 82.3 ml RA : 30.7 ml/m2 LA vol index: 41.7 ml/m2 IVC diam: 1.8 cm RVD1 (basal): 3.2 cm RVD2 (mid): 2.5 cm TAPSE: 0.90 cm Doppler Measurements & Calculations Ao V2 max: 74.5 cm/sec LVOT Max Brendan: 31.2 cm/sec Ao V2 mean: 49.0 cm/sec LV V1 max P.39 mmHg Ao max P.2 mmHg LV V1 VTI: 5.3 cm Ao mean P.1 mmHg MONICA(I,D): 1.6 cm2 Ao V2 VTI: 14.0 cm MONICA(V,D): 1.8 cm2 sev ratio: 0.38 MONICA indexed to BSA (cm^2/m^2): 0.81 MV E max brendan: 82.7 cm/sec TR max brendan: 315.7 cm/sec MV A max brendan: 2.1 cm/sec TR max P.9 mmHg MV E/A: 39.1 PA pr(Accel): 37.9 mmHg Med Peak E' Brendan: 3.0 cm/sec E/E' med: 27.8 Lat Peak E' Brendan: 4.5 cm/sec E/E' lat: 18.4 E/e' average: 23.1 MV dec time: 0.21 sec SV(LVOT): 22.4 ml Reading Physician:12:46 PM
[2022-01-01] MEDS: ACETAMINOPHEN 325 MG TABLET 975 MG PO (21:37)
[2022-01-01] MEDS: SENNOSIDES 8.6 MG TABLET PO (21:37)
[2022-01-01] MEDS: DOCUSATE 100 MG CAPSULE 200 MG PO (21:37)
[2022-01-01] MEDS: METOPROLOL ER 50 MG TABLET 25 MG PO (21:38)
[2022-01-01] MEDS: DOXYCYCLINE HYCLATE 100 MG TABLET PO (21:38)
[2022-01-02 03:14] VITALS: BP 132/84; PULSE 64; RESP 18; TEMP 35.2; O2SAT 94
[2022-01-02 04:00] VITALS: O2SAT 94
--- NOTE | 2022-01-02 05:34 | PM.PN.1 ---
Subjective Subjective Date Patient Seen: 01/02/22 Interval history: 86-year-old male with ischemic cardiomyopathy, chronic systolic heart failure with EF of 25-30%, recurrent VT s/p AICD placement, peripheral artery disease, hypertension, hyperlipidemia, peripheral neuropathy, chronic lower extremity wounds currently on outpatient oral antibiotics from wound care who was admitted last night w/acute on chronic CHF exacerbation. Patient reports his breathing is a little bit better today. He has never used oxygen before and continues to require 2 L of oxygen. He reports yes today his abdomen was is gurgling significantly and he was concerned he had a problem. He had also been having shortness of breath. He states he has chronic leg wounds and is followed by the wound clinic weekly. He was last seen there on December 30 and is scheduled to see them again on January 04. He reports the nurse will be taking photos of his wounds this afternoon. Exam Vital Signs (past 8 hours): - 01/01/22 21:38 01/01/22 23:46 01/01/22 22:10 Temperature 96.8 F L Pulse Rate 74 70 72 Respiratory Rate 20 Blood Pressure 141/91 H 127/75 136/82 Pulse Oximetry 95 Oxygen Delivery Method Oxygen Flow Rate 01/02/22 03:14 01/02/22 04:00 Temperature 95.4 F L Pulse Rate 64 Respiratory Rate 18 Blood Pressure 132/84 Pulse Oximetry 94 94 Oxygen Delivery Method Nasal Cannula Oxygen Flow Rate 2 2 Oxygen Delivery Method Nasal Cannula Oxygen Flow Rate 2 Narrative Exam Narrative: GEN: Frail-appearing elderly male, Alert and oriented x 3, NAD HEENT:NC, Face symmetric CHEST: Respiratory excursions symmetric, diminished bilaterally but CTAB CV: RRR, no M/R/G ABD: Soft, NT/ND, BT present in all 4 quadrants, no organomegaly or masses EXTR: Upper and lower extremities are cold to touch with mottling to the fingers and toes, greater than 12nd capillary refill noted to the bilateral great toes, heel wounds were not visualized as patient prefers to wait until RN will be taking photos to have his dressings on wrapped SKIN: no rash NEURO: Alert and oriented x 3, nonfocal Objective Labs Result Diagrams: 01/02/22 05:18 01/02/22 05:18 Labs: Laboratory Results - last 24 hr 01/01/22 01/01/22 01/01/22 14:04 14:04 14:04 WBC 7.8 RBC 4.38 L Hgb 13.1 L Hct 40.3 L MCV 92.0 MCH 29.9 MCHC 32.5 RDW 15.6 H Plt Count 193 Neut % (Auto) 74.0 Lymph % (Auto) 17.9 L [place] % (Auto) 7.7 Eos % (Auto) 0.1 L Baso % (Auto) 0.3 Neut # (Auto) 5700 Lymph # (Auto) 1400 [place] # (Auto) 600 Eos # (Auto) 0 Baso # (Auto) 0 Nucleated RBCs 1 H RBC Morphology See below Poikilocytosis 1+ H Anisocytosis 1+ H Macrocytosis 1+ H PT 18.9 H INR 1.6 H Sodium 139 Potassium 4.1 Chloride 101 Carbon Dioxide 22 BUN 43 H Creatinine 1.56 H Estimated GFR 43 L BUN/Creatinine Ratio 27.6 H Glucose 149 H Lactate Calcium 8.9 Total Bilirubin 1.3 AST 153 H ALT 83 H Alkaline Phosphatase 174 H NT-Pro-B Natriuret Pep 34577 H Total Protein 6.4 Albumin 3.5 Globulin 2.9 Albumin/Globulin Ratio 1.2 SARS-CoV-2 (PCR) 01/01/22 01/01/22 01/01/22 14:04 14:07 16:40 WBC RBC Hgb Hct MCV MCH MCHC RDW Plt Count Neut % (Auto) Lymph % (Auto) [place] % (Auto) Eos % (Auto) Baso % (Auto) Neut # (Auto) Lymph # (Auto) [place] # (Auto) Eos # (Auto) Baso # (Auto) Nucleated RBCs RBC Morphology Poikilocytosis Anisocytosis Macrocytosis PT INR Sodium Potassium Chloride Carbon Dioxide BUN Creatinine Estimated GFR BUN/Creatinine Ratio Glucose Lactate 2.4 H 1.7 Calcium Total Bilirubin AST ALT Alkaline Phosphatase NT-Pro-B Natriuret Pep Total Protein Albumin Globulin Albumin/Globulin Ratio SARS-CoV-2 (PCR) Negative [facility] Medical History Actinic keratosis Atrial fibrillation Balance disorder Basal cell carcinoma Bradycardia Cardiomyopathy Carpal tunnel syndrome Cataracts, bilateral Coronary artery disease Cyst, nasal sinus (1971) Degenerative joint disease involving multiple joints Edema noted on examination Erectile dysfunction Failure of right total hip arthroplasty Frailty syndrome in geriatric patient Frequent falls Glaucoma Heart murmur History of placement of internal cardiac defibrillator (04/2012) Hyperlipemia Hypertension Ischemic cardiomyopathy Macular degeneration Mixed hyperlipidemia Myocardial infarction (1996) Non-sustained ventricular tachycardia Peripheral neuropathy (02/2019) Recurrent ventricular tachycardia Squamous cell carcinoma Vitreous floaters of right eye Surgical History AICD (automatic cardioverter/defibrillator) present (~04/2012) History of carpal tunnel release (01/2006) History of Mohs surgery for squamous cell carcinoma of skin (2013) Hx of bilateral hip replacements (2008) Hx of cardiac catheterization (~1996) Hx of cardiac catheterization (07/06/11) Hx of cataract surgery Hx of coronary artery bypass graft S/P CABG x 2 (~2011) Family History Father Enlarged heart Stroke Mother Stroke Brother Cirrhosis Social History household members: spouse Smoking Status: Former smoker second hand exposure: No alcohol intake: former substance use type: does not use Assessment & Plan Assessment & Plan narrative: 1. Acute on chronic systolic heart failure, present on admission Overall improved. Last echocardiogram revealed an ejection fraction of 25-30% on imaging performed in 2018. Echocardiogram presently pending. He has a history of recurrent VT and has an AICD in place since 2012. Continue telemetry and diuresis. Electrolytes are stable. Creatinine is mildly increased from 1.56-1.67. Baseline appears to be 1.19. Monitor response to diuresis. If he has worsening TRAE, diuresis will be discontinued. Continue Entresto mexiletine. 2. Acute respiratory failure hypoxia [place] to be secondary to CHF, patient was 88% on room air in the ER. Continues on supplemental oxygen. He has a moderate right pleural effusion, small left pleural effusion. Interstitial and airspace opacities noted in the right mid lung and perihilar region. Despite some of this will improve with diuresis. 3. Chronic lower extremity wounds on outpatient oral antibiotic Continue doxycycline. Follows with the Wound Clinic regularly. Await photos to be taken by RN today. 4. Hypertension Blood pressures are normotensive. Remains on Toprol XL. 5. Hyperlipidemia Continue atorvastatin. 6. Congestive hepatopathy Patient had elevated INR and transaminitis felt to be secondary to volume overload.- elevated INR and elevated liver enzymes. Suspect due to volume overload. LFTs remain elevated but he has no pain on exam. [place] continue [place] [address] yesterday. 7. TRAE As noted above. 8. Peripheral artery disease Patient has significant disease as evidenced by mottling in both his hands and feet, poor capillary refill all, and cold extremities. Code:? DNR, surrogate decision maker is the patient's spouse Prophylaxis On Lovenox Dispo Presently pending. Will have therapies assess for home safety Time Spent With Patient Critical Care time: I spent a total of [] minutes of critical care time on this patient's care today; this time is exclusive of procedural time. Quality VTE Deep Vein Thrombosis/Pulmonary Embolism Present on Admission: No
[2022-01-02 06:15] LABS: Hematocrit 40.7 % (41-53); Hemoglobin 13.5 g/dL (13.5-17.5); Mean Corpuscular HGB Conc 33.2 % (30-36); Mean Corpuscular Hemoglobin 30.1 PG (26-34); Mean Corpuscular Volume 90.8 fL (80-100); Platelet Count 193 X10^3/uL (150-400); Red Blood Cell Count 4.48 X10^6/uL (4.5-5.9); Red Cell Distribution Width 16.1 % (11.6-14.8); White Blood Cell Count 8.7 X10^3/uL (4.5-11.0)
[2022-01-02 06:23] LABS: Alanine Aminotransferase 116 IU/L (<50); Albumin 3.6 g/dL (3.5-5.0); Albumin Globulin Ratio 1.2 (1.0-2.8); Alkaline Phosphatase 189 U/L (38-126); Aspartate Aminotransferase 200 IU/L (17-59); BUN Creatinine Ratio 28.1 (6-22); Bilirubin Total 1.1 mg/dL (0.2-1.3); Blood Urea Nitrogen 47 mg/dL (9-20); Calcium 9.1 mg/dL (8.4-10.2); Carbon Dioxide 23 mmol/L (22-32); Chloride 102 mmol/L (98-107); Estimated Glomerular Filt Rate 40 mL/min (>60); Globulin 2.9 g/dL (1.7-4.1); Glucose 95 mg/dL (80-110); HEMOLYSIS < 15 (0-50); Magnesium 2.2 mg/dL (1.6-2.3); Potassium 4.6 mmol/L (3.4-5.1); Sodium 138 mmol/L (137-145); Total Protein 6.5 g/dL (6.3-8.2)
[2022-01-02 06:55] LABS: Add Manual Diff / Slide Review YES
[2022-01-02 06:57] LABS: Neutrophils Absolute Manual 5394 /uL (3000-5900); Nucleated Red Blood Cells 2 #/Diff; Platelet Estimate Adequate on smear; RBC Morphology Normal Morphology; Total Cells Counted 100
[2022-01-02 07:30] VITALS: O2SAT 95
[2022-01-02] MEDS: DOXYCYCLINE HYCLATE 100 MG TABLET PO ×3 (10:30→22:03)
[2022-01-02] MEDS: CHOLECALCIFEROL (VITAMIN D3) 1,000 UNIT TABLET 1000 UNIT PO (10:37)
[2022-01-02] MEDS: ATORVASTATIN 20 MG TABLET 40 MG PO (10:37)
[2022-01-02] MEDS: ASPIRIN EC 81 MG TABLET PO (10:38)
[2022-01-02] MEDS: DOCUSATE 100 MG CAPSULE 200 MG PO ×2 (10:38→22:03)
[2022-01-02] MEDS: ISOSORBIDE MONONITRATE ER 30 MG TABLET PO (10:38)
[2022-01-02] MEDS: METOPROLOL ER 50 MG TABLET 25 MG PO ×2 (10:38→22:05)
[2022-01-02] MEDS: ENOXAPARIN 40 MG/0.4 ML SYRINGE SUBCUT (10:39)
[2022-01-02] MEDS: TIMOLOL 0.5% OPHTH 1 DROPS EYE-BOTH ×2 (10:39→22:10)
[2022-01-02] MEDS: FUROSEMIDE 40 MG/4 ML VIAL IV ×2 (10:39→18:17)
[2022-01-02] MEDS: DORZOLAMIDE 2% OPHTH 10 ML 1 DROPS EYE-BOTH ×2 (10:40→22:09)
[2022-01-02] MEDS: MULTIVITAMIN 1 TABLET 1 TAB PO (10:41)
[2022-01-02] MEDS: Mexiletine 150 mg capsule 150 EACH PO ×2 (13:54→22:02)
[2022-01-02] MEDS: Sacubitril-Valsartan [Entresto] 24-26 mg tablet 1 EACH PO ×2 (13:54→22:04)
--- NOTE | 2022-01-02 13:55 | PT.IIE ---
Surgical History (Last Reviewed 01/01/22 @ 18:52 by Cipriano Pearson DO) AICD (automatic cardioverter/defibrillator) present (~04/2012) History of carpal tunnel release (01/2006) History of Mohs surgery for squamous cell carcinoma of skin (2013) Hx of bilateral hip replacements (2008) Hx of cardiac catheterization (~1996) Hx of cardiac catheterization (07/06/11) Hx of cataract surgery Hx of coronary artery bypass graft S/P CABG x 2 (~2011) Medical History (Last Reviewed 01/01/22 @ 18:52 by Cipriano Pearson DO) Actinic keratosis Atrial fibrillation Balance disorder Basal cell carcinoma Bradycardia Cardiomyopathy Carpal tunnel syndrome Cataracts, bilateral Coronary artery disease Cyst, nasal sinus (1971) Degenerative joint disease involving multiple joints Edema noted on examination Erectile dysfunction Failure of right total hip arthroplasty Frailty syndrome in geriatric patient Frequent falls Glaucoma Heart murmur History of placement of internal cardiac defibrillator (04/2012) Hyperlipemia Hypertension Ischemic cardiomyopathy Macular degeneration Mixed hyperlipidemia Myocardial infarction (1996) Non-sustained ventricular tachycardia Peripheral neuropathy (02/2019) Recurrent ventricular tachycardia Squamous cell carcinoma Vitreous floaters of right eye Physical Therapy Inpatient Evaluation/Re-Eval M1 PT/OT-IP Prior Functional Status Start: 01/02/22 16:02 Freq: NEEDED Status: Active Protocol: Document 01/02/22 13:55 AB (Rec: 01/02/22 16:26 AB [id number]) Medical Review Prior Functional Status Medical History Reviewed Yes Communication able to make needs known but needs time to respond to questions; [place] Mobility and Gait spouse Rhoda and son in room and provided PLOF and home set up: stated that pt needs assistance with all mobilities and spouse assists pt; pt able to stand and transfer to w/c using fWW with assist. pt had PT a few weeks ago and pt able to ambulate using FWW but PT has d/c pt when wound doctor ordered not to ambulate and not to put weight on BLE due to wounds and can only put weight during transfers. pt has been declining in function and has not been able to stand for a few days now according to . pt is mostly chair bound and spends most of his time sitting on his lift chair. Bath aide comes in 2x/week and gives pt a sponge bath (w/c will not fit into the bathroom ) Social History Household Members spouse Living Arrangements House Number of Floors (Floors) One Floor Number of Stairs To Enter/Railing? no stept to enter: ramp Home Environment Ramp Home Equipment Front Wheel Walker,Manual Wheelchair,Bedside Commode,Leg Red Leader Additional Social History Comment w/c will not fit into the bathroom/toilet: pt uses a bedside commode and a bath aide provides sponge bathing pt has R side bed cane M2 PT-IP Current Condition Start: 01/02/22 16:02 Freq: NEEDED Status: Active Protocol: Document 01/02/22 13:55 AB (Rec: 01/02/22 16:26 AB [id number]) Physical Therapy Current Condition Current Condition Evaluation Date 01/01/22 Treatment Diagnosis CHF; generalized weakness Onset Date 01/02/22 M3 PT-IP Subjective Start: 01/02/22 16:02 Freq: NEEDED Status: Active Protocol: Document 01/02/22 13:55 AB (Rec: 01/02/22 16:26 AB [email or web address]) Subjective Physical Therapy Visit Type Type Initial Evaluation Visit Start Time 13:55 Visit Stop Time 14:55 Total Visit Minutes 60 Number of YEAST STACKER Visits 0 Physical Therapy Visit Comments Patient Comments agreeable to do PT Therapy Pain Assessment Pain When Pain Assessed During Mobility Pain Present Pain Present Pain Reported Location Bilateral Heel Scale Used pain scale not stated Pain Management Techniques Distraction,Re-positioning, Timing of Activity with Medications M4 PT-IP Mobility and Gait Start: 01/02/22 16:02 Freq: NEEDED Status: Active Protocol: Document 01/02/22 13:55 AB (Rec: 01/02/22 16:26 AB [email or web address]) PT-Bed Mobility Assessment Supine to Sit Supine to Sit Maximum Assistance,1 Person Assistance,2 Person Assistance ,Head of Bed Elevated,Bedrails Scooting Scooting to Edge of Bed Maximum Assistance PT-Transfer Assessment Sit to and From Stand Sit to and from Stand Maximum Assistance,2 Person Assistance,Use of Upper Extremities Equipment Transfer Assistive Device Gait Belt,Front Wheeled Walker Orthotic/Prosthetic Devices or Brace: No Transfers Transfer Destination Chair Transfer Technique Stand Step Pivot Transfer Ability Level of Assist Maximum Assistance,2 Person Assistance,Use of Upper Extremities Comments Mobility Comments BP: 138/99 completed supine to sit max A x 1-2 and max cues with HOB elevated and bed rail. required mod A for sitting on EOB. presents with initial increase posterior lean. max A x 1-2 for scooting to EOB. completed sit to stand max A x 2 and pivot transfer using FWW max A x 2 to total A x 2 and max cues. pt midway of transferring requiring total A x 2 as pt is trying to sit midway during transfer. positioned pt on the chair. ( +) SOB. unable to obtain O2 sat. cued pt for deep breathing. call light and table placed within reach. NAC in room. Left pt with family and NAC. PT-Balance Assessment Sitting Balance and Reactions Static Sitting Balance Ability Fair Dynamic Sitting Balance Ability Poor Standing Balance and Reactions Static Standing Balance Ability Poor Dynamic Standing Balance Ability Poor Device Used FWW M5 PT-IP Objective Assessments Start: 01/02/22 16:02 Freq: NEEDED Status: Active Protocol: Document 01/02/22 13:55 AB (Rec: 01/02/22 16:26 AB [email or web address]) Orientation Orientation/Cognition Level of Alertness Alert Language Function Ability Hard of Hearing Safety Awareness Decreased Safety Awareness Memory Description Short Term Impaired Gross Range of Motion Lower Extremity ROM Impairments B ankle tightness: in PF Strength Lower Extremity Strength Assessment Bilaterally Impaired Hip 3-/5 Knee 3-/5 Ankle L: 2+/5 R: 2-/5 Sensation Assessment Sensation Sensation Description Numbness Comments Sensation Comments BLE numbness M6 PT-IP Treatment Start: 01/02/22 16:02 Freq: NEEDED Status: Active Protocol: Document 01/02/22 13:55 AB (Rec: 01/02/22 16:26 AB [email or web address]) Physical Therapy Treatment Education Education Provided Safety M7 PT-IP Assessment and Plan Start: 01/02/22 16:02 Freq: NEEDED Status: Active Protocol: Document 01/02/22 13:55 AB (Rec: 01/02/22 16:26 AB [email or web address]) PT Summary Assessment and Plan Potential Rehabilitation Potential Fair Status of Condition at Evaluation Evolving Summary Impairments Pain,ROM,Strength,Balance, Coordination,Sensation,Tone, Cognition,Bed Mobility, Transfers,Gait,Activity Tolerance Assessment Summary pt requiring max A x 2 to total A x 2 with transfer using FWW. Recommending use of faby lift transfer with nursing staff. informed pt and spouse regarding current mobility and SNF recommendation but spouse does not want pt to go to SNF. informed family that if pt goes home and continues to require total Ax 2, pt will need a 24/7 assist at home with 2 person and a faby lift to transfer. also informed that PT will continue to see how pt progress and when caregiver training is deemed appropriate, will conduct caregiver training. spouse understood. will continue to assess progress. Goals Bed Mobility Goal Minimal Assistance Transfer Goal Minimal Assistance,Front Wheeled Walker Days to Meet Goals 10 Frequency of Treatment Frequency Of Treatment Once a Day Treatment Plan Physical Therapy Treatment Plan Bed Mobility Training,Transfer Training,Therapeutic Exercise ,Balance Retraining,Discharge Planning,Hot or Cold Pack, Neuromuscular Re-ed, Coordination Retraining,Manual Therapy Weight Bearing Status Allowed Weight Bearing Amount (enter % per family: wound doctor or #) (%) [place] ordered weight bearing on BLE for transfers only Recommendations To Nursing Amount of Assist Needed Mechanical Lift Discharge Recommendations PT Discharge Recommendations SNF Rehab Transportation Needs at Discharge Wheelchair/Cabulance
--- NOTE | 2022-01-02 15:13 | CM.DANOTE ---
Initial DCP Assessment Note Pt is an 86 yo male, resident of [place], arrives w/ SOB, acute on chronic CHF exac PMH includes ischemic cardiomyopathy, chronic systolic heart failure with EF of 25-30%, recurrent VT s/p AICD placement, peripheral artery disease, hypertension, hyperlipidemia, peripheral neuropathy, chronic lower extremity wounds currently on outpatient oral antibiotics from wound care PCP: Jana Webb Payer: [facility]/[employer] Reviewed chart, met w/patient, spouse and son at bedside (son visiting from [place]), introduced self and role. Patient explains he had been walking, although slowly, up until September when he was admitted at [facility] and was discharged to [facility]; since then he has not gained his mobility back and has been w/c bound at home. Spouse knows that she needs more assistance to care for patient because patient's needs have increased. Provided Senior Resource Guide and highlighted the info for in home caregivers and [facility]. Patient has been current w/ [facility]. Discussed the envisioned outcome of this hospitalization (?) and spouse plans to take patient home, wonders only if she wants HH or hospice at this time. PCP Jana Webb has suggested hospice care as patient would meet criteria. Spouse wants to discuss further with the doctor before deciding. 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 Yes Advance Directives on File Yes History Provided By Patient,Medical Record Prior Living Arrangements House Household Members spouse Type of transporation used prior to Relies on Others admit Willing to Return to Facility? No: Patient/family do not want SNF Independent with ADL's No Is patient alert and oriented? Yes: mild short term memory loss Needs Assistance With Bathing,Grooming,Meal Prep, Toileting,Managing Medications ,Home Chores / Shopping Patient/Family Preference Home with Home Health Comment Home w/ HH vs Hospice Barriers to Discharge No Comment Home w/family, HH vs hospice Discharge Plan Home with Home Health Transportation Arrangement Family vs cabulance (?) Additional Comment Awaiting family's decision re HH vs Hospice.
--- NOTE | 2022-01-02 15:34 | PC.NURSE ---
Addendum entered by Dipika Patel R.N. 01/02/22 18:44: Patients up to commode with faby lift, he voided but did not have a bowel movement. He sat up in the chair for a couple of hours and tolerated well. Addendum entered by Dipika Patel R.N. 01/02/22 17:16: Patient has heel uclers to each foot. Camera's not working at this time. Area's measured and wound assessment filled out x2 under skin assessment. Redressed with gauze sponges, l.heel packed yesterday at wound clinic. Kurlex placed atop both ulcers and taped. Patient tolerated this well. Original Note: Patient is up in the chair after working with physical therapy. He is alert and oriented x2 as he can be forgetful. Dressings to bilateral ankles are cdi, will change these this afternoon and take pictures of area's. and son in room and visiting with patient.
--- NOTE | 2022-01-02 16:49 | OT.IPNOTE ---
Attempted to see pt for OT eval and pt getting a dressing change and not available. Per chart family may be considering hospice, to check on Tuesday when OT next available to see if OT eval appropriate still.
[2022-01-02 20:00] VITALS: BP 135/86; PULSE 69; RESP 14; TEMP 36.2
[2022-01-02 20:12] VITALS: O2SAT 95
[2022-01-02] MEDS: BIMATOPROST 0.03% 1 EACH EYE-BOTH (22:00)
[2022-01-02] MEDS: SENNOSIDES 8.6 MG TABLET PO (22:03)
[2022-01-02 22:05] VITALS: BP 139/92; PULSE 70
[2022-01-03] VITALS (14 sets, daily range): BP systolic 112–160; BP diastolic 72–99; PULSE 69–78; RESP 16–18; TEMP 33.2–36.2; O2SAT 92–99
[2022-01-03] MEDS: PANTOPRAZOLE DR 20 MG TABLET PO (05:08)
[2022-01-03] MEDS: Mexiletine 150 mg capsule 150 EACH PO ×3 (05:08→17:29)
--- NOTE | 2022-01-03 05:49 | P.PN_ITS ---
Subjective Subjective Date Patient Seen: 01/03/22 Interval history: 86-year-old male with? ischemic cardiomyopathy, chronic systolic heart failure with EF of 25-30%, recurrent VT s/p AICD placement, peripheral artery disease, hypertension, hyperlipidemia, peripheral neuropathy, chronic lower extremity wounds currently on outpatient oral antibiotics from wound care who was admitted last night w/acute on chronic CHF exacerbation. Patient reports he is feeling about the same today. He continues to require oxygen. His is present at bedside as his son. RN notes that he is hypoth ermic today with a temperature down to 91? F. Patient denies any new symptoms. His clarifies that his chronic foot wounds are followed by home health twice weekly. He is seeing the wound clinic and was last there last week. He is scheduled to see Cardiology next week. is questioning whether or not he might be a candidate for hospice. She understands that if she and he elects to move forward with hospice, home health would be canceled. Exam Vital Signs (past 8 hours): - 01/02/22 22:05 01/03/22 00:00 01/03/22 00:00 Temperature 97.1 F L Pulse Rate 70 74 74 Respiratory Rate 16 Blood Pressure 139/92 H 130/72 130/72 Pulse Oximetry 92 Oxygen Delivery Method Oxygen Flow Rate 1.5 01/03/22 00:00 01/03/22 04:00 Temperature 97.2 F L Pulse Rate 78 Respiratory Rate 16 Blood Pressure 133/99 H Pulse Oximetry 94 96 Oxygen Delivery Method Nasal Cannula Oxygen Flow Rate 2 1.5 Oxygen Delivery Method Nasal Cannula Oxygen Flow Rate 1.5 Narrative Exam Narrative: GEN:? Frail-appearing elderly male, Alert and oriented x 3, NAD HEENT:NC, Face symmetric CHEST: Respiratory excursions symmetric, diminished bilaterally but CTAB CV: RRR, no M/R/G ABD: Soft, NT/ND, BT present in all 4 quadrants, no organomegaly or masses EXTR:? Upper and lower extremities are cold to touch with mottling to the fingers and toes, greater than 10 second capillary refill noted to the bilateral great toes, heel wounds were visualized yesterday and revealed no significant drainage or erythema, there was packing noted in both lung SKIN: no rash NEURO: Alert and oriented x 3, nonfocal Objective Labs Result Diagrams: 01/03/22 08:00 01/03/22 08:00 Labs: Laboratory Results - last 24 hr 01/02/22 01/02/22 05:18 05:18 WBC 8.7 RBC 4.48 L Hgb 13.5 Hct 40.7 L MCV 90.8 MCH 30.1 MCHC 33.2 RDW 16.1 H Plt Count 193 Neut % (Auto) Not Reportable Lymph % (Auto) Not Reportable [place] % (Auto) Not Reportable Eos % (Auto) Not Reportable Baso % (Auto) Not Reportable Lymph # (Auto) Not Reportable [place] # (Auto) Not Reportable Baso # (Auto) Not Reportable Total Counted 100 Seg Neutrophils % 62.0 Lymphocytes % (Manual) 25.0 Monocytes % (Manual) 11.0 Eosinophils % (Manual) 1.0 L Basophils % (Manual) 1.0 Neutrophils # (Manual) 5394 Nucleated RBCs 2 H Platelet Estimate Adequate on smear RBC Morphology Normal morphology Sodium 138 Potassium 4.6 Chloride 102 Carbon Dioxide 23 BUN 47 H Creatinine 1.67 H Estimated GFR 40 L BUN/Creatinine Ratio 28.1 H Glucose 95 Calcium 9.1 Magnesium 2.2 Total Bilirubin 1.1 AST 200 H ALT 116 H Alkaline Phosphatase 189 H Total Protein 6.5 Albumin 3.6 Globulin 2.9 Albumin/Globulin Ratio 1.2 PFSH Medical History Actinic keratosis Atrial fibrillation Balance disorder Basal cell carcinoma Bradycardia Cardiomyopathy Carpal tunnel syndrome Cataracts, bilateral Coronary artery disease Cyst, nasal sinus (1971) Degenerative joint disease involving multiple joints Edema noted on examination Erectile dysfunction Failure of right total hip arthroplasty Frailty syndrome in geriatric patient Frequent falls Glaucoma Heart murmur History of placement of internal cardiac defibrillator (04/2012) Hyperlipemia Hypertension Ischemic cardiomyopathy Macular degeneration Mixed hyperlipidemia Myocardial infarction (1996) Non-sustained ventricular tachycardia Peripheral neuropathy (02/2019) Recurrent ventricular tachycardia Squamous cell carcinoma Vitreous floaters of right eye Surgical History AICD (automatic cardioverter/defibrillator) present (~04/2012) History of carpal tunnel release (01/2006) History of Mohs surgery for squamous cell carcinoma of skin (2013) Hx of bilateral hip replacements (2008) Hx of cardiac catheterization (~1996) Hx of cardiac catheterization (07/06/11) Hx of cataract surgery Hx of coronary artery bypass graft S/P CABG x 2 (~2011) Family History Father Enlarged heart Stroke Mother Stroke Brother Cirrhosis Social History household members: spouse Smoking Status: Former smoker second hand exposure: No alcohol intake: former substance use type: does not use Assessment & Plan Assessment & Plan narrative: 1. Acute on chronic systolic heart failure, present on admission Overall improved.? Last echocardiogram revealed an ejection fraction of 25-30% on imaging performed in 2018.? Echocardiogram completed yesterday and revealed ejection fraction now of 15-20%.? He has a history of recurrent VT and has an AICD in place since 2012. Continue telemetry and diuresis.? Electrolytes are stable.? Creatinine is stable.? Baseline appears to be 1.19.? Continue Entresto and mexiletine. 2. Acute respiratory failure hypoxia [place] to be secondary to CHF, patient was 88% on room air in the ER.? Continues on supplemental oxygen.? He has a moderate right pleural effusion, small left pleural effusion.? Interstitial and airspace opacities noted in the right mid lung and perihilar region.? Continue oxygen as needed. 3. Hypothermia I checked his temperature orally and he was noted to be 89?. Ema Hugger was placed with gradual improvement to 95.4?. Suspect he has poor perfusion related to his worsening congestive heart failure. 4. Chronic lower extremity wounds on outpatient oral antibiotic Continue doxycycline.? Has been seeing home health and the wound clinic. 4. Hypertension Blood pressures are normotensive.? Remains on Toprol XL.? 5. Hyperlipidemia Continue atorvastatin. 6. Congestive hepatopathy Patient had elevated INR and transaminitis felt to be secondary to volume overload. LFTs are slightly improved today. 7. TRAE As noted above. Improved. 8.? Peripheral artery disease Patient has significant disease as evidenced by mottling in both his hands and feet, poor capillary refill all, and cold extremities. Code:? DNR, surrogate decision maker is the patient's spouse Prophylaxis On Lovenox Dispo Long conversation with patient's and son and the patient at bedside. At this time, I agree with plans to pursue hospice. Patient's and son notes they would not be able to successfully transfer him home independently. Will arrange for ambulance transfer home tomorrow. Goal would be to have hospice DME delivered prior to patient's arrival home as his mobility is greatly limited. Time Spent With Patient Critical Care time: I spent a total of [] minutes of critical care time on this patient's care today; this time is exclusive of procedural time. Quality VTE Deep Vein Thrombosis/Pulmonary Embolism Present on Admission: No
[2022-01-03 08:33] LABS: Alanine Aminotransferase 105 IU/L (<50); Albumin 3.1 g/dL (3.5-5.0); Albumin Globulin Ratio 1.1 (1.0-2.8); Alkaline Phosphatase 180 U/L (38-126); Aspartate Aminotransferase 170 IU/L (17-59); BUN Creatinine Ratio 31.8 (6-22); Bilirubin Total 0.9 mg/dL (0.2-1.3); Blood Urea Nitrogen 49 mg/dL (9-20); Calcium 8.7 mg/dL (8.4-10.2); Carbon Dioxide 27 mmol/L (22-32); Chloride 102 mmol/L (98-107); Estimated Glomerular Filt Rate 44 mL/min (>60); Globulin 2.8 g/dL (1.7-4.1); Glucose 81 mg/dL (80-110); HEMOLYSIS 20 (0-50); Magnesium 2.1 mg/dL (1.6-2.3); Potassium 3.3 mmol/L (3.4-5.1); Sodium 139 mmol/L (137-145); Total Protein 5.9 g/dL (6.3-8.2)
[2022-01-03 09:05] LABS: Add Manual Diff / Slide Review NO; Basophils Absolute Auto 100 /uL (0-100); Basophils Percent Auto 0.7 % (0-2); Eosinophils Absolute Auto 200 /uL (0-450); Eosinophils Percent Auto 2.8 % (2-4); Hematocrit 40.5 % (41-53); Hemoglobin 13.5 g/dL (13.5-17.5); Lymphocytes Absolute Auto 1700 /uL (1100-4500); Lymphocytes Percent Auto 22.5 % (25-40); Mean Corpuscular HGB Conc 33.3 % (30-36); Mean Corpuscular Hemoglobin 30.2 PG (26-34); Mean Corpuscular Volume 90.7 fL (80-100); Monocytes Absolute Auto 1300 /uL (0-900); Monocytes Percent Auto 17.5 % (3-14); Neutrophils Absolute Auto 4300 /uL (1500-7000); Neutrophils Percent Auto 56.5 % (50-75); Platelet Count 176 X10^3/uL (150-400); Red Blood Cell Count 4.46 X10^6/uL (4.5-5.9); Red Cell Distribution Width 15.7 % (11.6-14.8); White Blood Cell Count 7.7 X10^3/uL (4.5-11.0)
[2022-01-03] MEDS: FUROSEMIDE 40 MG/4 ML VIAL IV ×2 (10:00→16:41)
[2022-01-03] MEDS: ATORVASTATIN 20 MG TABLET 40 MG PO (12:27)
[2022-01-03] MEDS: ASPIRIN EC 81 MG TABLET PO (12:27)
[2022-01-03] MEDS: CHOLECALCIFEROL (VITAMIN D3) 1,000 UNIT TABLET 1000 UNIT PO (12:28)
[2022-01-03] MEDS: DOCUSATE 100 MG CAPSULE 200 MG PO ×2 (12:28→20:03)
[2022-01-03] MEDS: ENOXAPARIN 40 MG/0.4 ML SYRINGE SUBCUT (12:30)
[2022-01-03] MEDS: ISOSORBIDE MONONITRATE ER 30 MG TABLET PO (12:30)
[2022-01-03] MEDS: DOXYCYCLINE HYCLATE 100 MG TABLET PO ×2 (12:30→20:04)
[2022-01-03] MEDS: METOPROLOL ER 50 MG TABLET 25 MG PO ×2 (12:31→20:05)
[2022-01-03] MEDS: Sacubitril-Valsartan [Entresto] 24-26 mg tablet 1 EACH PO ×2 (12:31→20:05)
[2022-01-03] MEDS: MULTIVITAMIN 1 TABLET 1 TAB PO (12:31)
[2022-01-03] MEDS: VIT C/E/ZN/COPPR/LUTEIN/ZEAXAN CAPSULE 1 CAP PO (12:32)
[2022-01-03] MEDS: DORZOLAMIDE 2% OPHTH 10 ML 1 DROPS EYE-BOTH ×2 (12:35→20:03)
[2022-01-03] MEDS: POTASSIUM CHLORIDE 20 MEQ TAB 40 MEQ PO (12:35)
--- NOTE | 2022-01-03 14:48 | PT.IPTN ---
Physical Therapy Treatment Note M2 PT-IP Current Condition Start: 01/02/22 16:02 Freq: NEEDED Status: Active Protocol: Document 01/02/22 13:55 AB (Rec: 01/02/22 16:26 AB [id number]) Physical Therapy Current Condition Current Condition Evaluation Date 01/01/22 Treatment Diagnosis CHF; generalized weakness Onset Date 01/02/22 M3 PT-IP Subjective Start: 01/02/22 16:02 Freq: NEEDED Status: Active Protocol: Document 01/03/22 14:48 NBM (Rec: 01/03/22 15:37 NBM [id number]) Subjective Physical Therapy Visit Type Type Treatment Note Visit Start Time 14:32 Visit Stop Time 14:48 Total Visit Minutes 16 Notes Pt planning to d/c home w/ family and to start hospice. Number of CRITICAL CARE TECHNICIAN Visits 1 Physical Therapy Visit Comments Patient Comments agreeable to do PT in bed. M4 PT-IP Mobility and Gait Start: 01/02/22 16:02 Freq: NEEDED Status: Active Protocol: Document 01/03/22 14:48 NBM (Rec: 01/03/22 15:37 NBM [id number]) PT-Bed Mobility Assessment Scooting Scooting Up and Down in Bed Maximum Assistance PT-Transfer Assessment Comments Mobility Comments Pt in bed w/ bilateral feet dressings, Bear Hugger warming unit, HOB elevated and agreeable to PT from bed only. Pt and spouse report planning to discharge home with family tomorrow and to start hospice . Treatment focus on lower extremity strengthening and mobility for improved bed mobility and circulation: Bimal ankle pumps, heel slides modA- maxA, quad sets w/ tactile cueing, straight leg raise, and gluteal sets cued for 3 second hold. Pt repositioned reclined in bed with Bear Hugger warming unit, call light and all needs within reach. Pt left with spouse in room. M5 PT-IP Objective Assessments Start: 01/02/22 16:02 Freq: NEEDED Status: Active Protocol: Document 01/02/22 13:55 AB (Rec: 01/02/22 16:26 AB [id number]) Orientation Orientation/Cognition Level of Alertness Alert Language Function Ability Hard of Hearing Safety Awareness Decreased Safety Awareness Memory Description Short Term Impaired Gross Range of Motion Lower Extremity ROM Impairments B ankle tightness: in PF Strength Lower Extremity Strength Assessment Bilaterally Impaired Hip 3-/5 Knee 3-/5 Ankle L: 2+/5 R: 2-/5 Sensation Assessment Sensation Sensation Description Numbness Comments Sensation Comments BLE numbness M6 PT-IP Treatment Start: 01/02/22 16:02 Freq: NEEDED Status: Active Protocol: Document 01/03/22 14:48 NBM (Rec: 01/03/22 15:37 NB [id number]) Physical Therapy Treatment Exercises Exercises Ankle Pumps,Gluteal Sets,Quad Sets,Heel Slides,Straight Leg Raises Education Education Provided Safety Other Treatments Other Treatment Performed Hip IR/ER in longsitting M7 PT-IP Assessment and Plan Start: 01/02/22 16:02 Freq: NEEDED Status: Active Protocol: Document 01/03/22 14:48 NBM (Rec: 01/03/22 15:37 [facility] [id number]) PT Summary Assessment and Plan Potential Rehabilitation Potential Fair Status of Condition at Evaluation Evolving Summary Impairments Pain,ROM,Strength,Balance, Coordination,Sensation,Tone, Cognition,Bed Mobility, Transfers,Gait,Activity Tolerance Assessment Summary Pt agreeable to PT from bed only and planning to discharge home with family and to start hospice. Treatment focus on lower extremity strengthening and mobility for improved bed mobility and circulation. Pt requires extra time to perform lower extremity exercises and requires maxA with heel slides bilaterally or else performs hip internal and external rotation instead. Pt repositioned reclined in bed with Bear Hugger warming unit, call light and all needs within reach. Pt left with spouse in room. Goals Bed Mobility Goal Minimal Assistance Transfer Goal Minimal Assistance,Front Wheeled Walker Days to Meet Goals 10 Frequency of Treatment Frequency Of Treatment Once a Day Treatment Plan Physical Therapy Treatment Plan Bed Mobility Training,Transfer Training,Therapeutic Exercise ,Balance Retraining,Discharge Planning,Hot or Cold Pack, Neuromuscular Re-ed, Coordination Retraining,Manual Therapy Weight Bearing Status Allowed Weight Bearing Amount (enter % per family: wound doctor or #) (%) Minow ordered weight bearing on BLE for transfers only Recommendations To Nursing Amount of Assist Needed Mechanical Lift Discharge Recommendations PT Discharge Recommendations SNF Rehab Transportation Needs at Discharge Wheelchair/Cabulance
--- NOTE | 2022-01-03 14:59 | CM.DPC ---
DCP/continued: Reviewed chart. Spoke with Dr. Bartlett this AM in rounds, she reports that family would like to take patient home with hospice. RN PRIMARY CARE met with patient, spouse, and son at bedside explained role. Spouse confirms the information above. Spouse has no preference in hospice agencies but would like whichever one can open first. Patient resides in [place] therefore placed call to [facility] [phone] had to leave message with answering service. Faxed clinical to [facility] requesting immediate start of care and DME delivery ( and 02) family reports that they have everything else. Provider reports that patient will need non-urgent BLS transport therefore, medical necessity form completed and signed by provider. In addition, POLST done. D/C anticipated to happen tomorrow afternoon. Both spouse and son will be there and can care for patient until hospice can start. They would prefer DME delivered prior to d/c but are agreeable either way. CM team to make contact with [facility] in AM on 01-04-22. Non-urgent BLS transport to be arranged for between 1:00-2:00pm. P: Home with Hospice. CM team to finalize d/c 01-04-22. ASHLEY
[2022-01-03] MEDS: BIMATOPROST 0.03% 1 EACH EYE-BOTH (20:04)
[2022-01-03] MEDS: SENNOSIDES 8.6 MG TABLET PO (20:04)
[2022-01-04 00:35] VITALS: BP 113/72; PULSE 70; RESP 16; TEMP 35.6; O2SAT 97
[2022-01-04] MEDS: Mexiletine 150 mg capsule 150 EACH PO ×2 (01:00→12:20)
[2022-01-04 03:39] VITALS: BP 100/67; PULSE 70; RESP 15; TEMP 35.7; O2SAT 96
[2022-01-04 04:00] VITALS: O2SAT 95
[2022-01-04 06:46] LABS: Hematocrit 37.1 % (41-53); Hemoglobin 12.6 g/dL (13.5-17.5); Mean Corpuscular HGB Conc 33.9 % (30-36); Mean Corpuscular Hemoglobin 30.3 PG (26-34); Mean Corpuscular Volume 89.4 fL (80-100); Platelet Count 185 X10^3/uL (150-400); Red Blood Cell Count 4.15 X10^6/uL (4.5-5.9); Red Cell Distribution Width 15.8 % (11.6-14.8); White Blood Cell Count 6.6 X10^3/uL (4.5-11.0)
[2022-01-04 06:48] LABS: Add Manual Diff / Slide Review YES
--- NOTE | 2022-01-04 06:56 | PC.NURSE ---
patient is a/o, voices needs. 1-2 PA ADL assistance and bed mobility. uses urinal for void, wears attends. needs assist w/ urinal placement; bedding saturated due to either incont of urine, or spilling of urinal. reluctant to change entire bed, and declined to change his tshirt which was very wet from hem at waist to midback. educated patient on importance of keeping his skin clean/dry, offered to help him change into a gown, he adamantly declined. allowed mario-care and barrier ointment applied to reddened scrotum, buttocks and inner thighs. carefully rolled up his tshirt at the back w/o being too lumpy, and tried to make sure it wasnt touching his bare skin. patient apprehensive about his pending transfer from hospital to home on hospice care. discussed his life, his , his accomplishments, and how proud he is of his son. provided listening support and comfort, encouraging him as he enters a new chapter of his life. declined to reposition his LE's, which are purple from toes to knees, has booties on, which patient did not want us to adjust. bear hugger is on, temp is 95.1 at mid shift. report to AYSE Boyle.
[2022-01-04 07:05] LABS: Alanine Aminotransferase 87 IU/L (<50); Albumin 2.8 g/dL (3.5-5.0); Albumin Globulin Ratio 1.1 (1.0-2.8); Alkaline Phosphatase 148 U/L (38-126); Aspartate Aminotransferase 124 IU/L (17-59); BUN Creatinine Ratio 27.7 (6-22); Bilirubin Total 0.8 mg/dL (0.2-1.3); Blood Urea Nitrogen 44 mg/dL (9-20); Calcium 8.4 mg/dL (8.4-10.2); Carbon Dioxide 26 mmol/L (22-32); Chloride 103 mmol/L (98-107); Estimated Glomerular Filt Rate 42 mL/min (>60); Globulin 2.6 g/dL (1.7-4.1); Glucose 77 mg/dL (80-110); HEMOLYSIS < 15 (0-50); Potassium 3.5 mmol/L (3.4-5.1); Sodium 138 mmol/L (137-145); Total Protein 5.4 g/dL (6.3-8.2)
[2022-01-04 07:08] LABS: Neutrophils Absolute Manual 4224 /uL (3000-5900); Total Cells Counted 100
[2022-01-04 07:09] LABS: RBC Morphology Norm
--- NOTE | 2022-01-04 08:51 | PM.DS.1 ---
History of Present Illness History of Present Illness Date Patient Seen: 01/04/22 Time Patient Seen: 11:43 Chief complaint: SOB Narrative: This is an 86-year-old male with a past medical history of ischemic cardiomyopathy, chronic systolic heart failure with an EF of 25-30%, recurrent VT AICD placement, peripheral artery disease, hypertension, hyperlipidemia, peripheral neuropathy, chronic lower extremity wounds currently on outpatient oral antibiotics from wound care who presents with worsening weakness, decreasing appetite / early satiety, and shortness of breath. He was in the ER a few nights ago for similar symptoms, he was sent home on increased lasix dosing but this was ineffective. Two weeks prior he was given 80 mg of lasix which then went back to his usual 20 but had reaccumulation of fluid. He reports weight gain of about 3 lbs in the past few days. He is wheelchair bound predominantly but can use a walker ususally for short distances, though for the past few weeks he has not been able to do that. In the emergency room, he did desaturate to 80% on room air and was placed on 2 L via nasal cannula.? Chest x-ray showed worsening volume overload and pleural effusions compared to chest x-ray from just 2 days ago when he was in the emergency room.? Laboratory evaluation mild elevation in his INR, elevation in his creatinine to 1.56, usually this is around 1.0-1.1.? There is also mild elevations in his AST and ALT to 153 and 83 respectively.? Total bilirubin is 1.3[place] [address], up [place] 9000 a few days ago.? COVID-19 was negative.? Patient was admitted for further evaluation acute on chronic systolic heart failure after failing outpatient management. Discharge Providers Provider Date of admission: 01/01/22 15:28 Discharge Date: 01/04/22 Primary care physician: DAYANA Paul Consults: 01/02/22 12:21 Consult to Occupational Therapy Evaluate & Treat Comment: Physician Instructions: Evaluate and treat Consult to Physical Therapy Evaluate & Treat Comment: Physician Instructions: Evaluate and Treat 01/03/22 16:09 Consult to Hospice Referral Routine Comment: Discharge provider: Malcom Lyons DO Summary Hospital Course Discharge Diagnosis: 1. Acute on chronic systolic heart failure, present on admission Overall improved.? Last echocardiogram revealed an ejection fraction of 25-30% on imaging performed in 2018.? Echocardiogram completed yesterday and revealed ejection fraction now of 15-20%.? He has a history of recurrent VT and has an AICD in place since 2012.? Continue telemetry and diuresis.? Electrolytes are stable.? Creatinine is stable.? Baseline appears to be 1.19.? Continue entresto and mexiletine. 2. Acute respiratory failure hypoxia [place] to be secondary to CHF, patient was 88% on room air in the ER.? Continues on supplemental oxygen.? He has a moderate right pleural effusion, small left pleural effusion.? Interstitial and airspace opacities noted in the right mid lung and perihilar region.? Continue oxygen as needed. 3. Hypothermia I checked his temperature orally and he was noted to be 89?.? Ema Hugger was placed with gradual improvement to 95.4?.? Suspect he has poor perfusion related to his worsening congestive heart failure. 4. Chronic lower extremity wounds on outpatient oral antibiotic Continue doxycycline.? Has been seeing home health and the wound clinic. 4. Hypertension Blood pressures are normotensive.? Remains on Toprol XL.? 5. Hyperlipidemia Continue atorvastatin. 6. Congestive hepatopathy Patient had elevated INR and transaminitis felt to be secondary to volume overload.? LFTs are slightly improved today.? 7. TRAE As noted above.? Improved. 8.? Peripheral artery disease Patient has significant disease as evidenced by mottling in both his hands and feet, poor capillary refill all, and cold extremities. Hospital Course: 86-year-old male with? ischemic cardiomyopathy, chronic systolic heart failure with EF of 25-30%, recurrent VT s/p AICD placement, peripheral artery disease, hypertension, hyperlipidemia, peripheral neuropathy, chronic lower extremity wounds currently on outpatient oral antibiotics from wound care who was admitted last night w/acute on chronic CHF exacerbation. Long conversation with patient's and son and the patient at bedside.? At this time, I agree with plans to pursue hospice.? Patient's and son notes they would not be able to successfully transfer him home independently. Patient was found to have worsened EF of 10-15% as the most likely cause of his weakness. Family and patient decided to pursue hospice so patient was discharged to their care on 01/04. Time Spent with Patient Time spent: Greater than 30 minutes Exam Vital Signs (past 8 hours): - 01/04/22 04:00 01/04/22 03:39 Temperature 96.3 F L Pulse Rate 70 Respiratory Rate 15 Blood Pressure 100/67 Pulse Oximetry 95 96 Oxygen Delivery Method Nasal Cannula Oxygen Flow Rate 1.5 1.5 Oxygen Delivery Method Nasal Cannula Oxygen Flow Rate 1.5 Narrative Exam Narrative: GEN:? Frail-appearing elderly male, Alert and oriented x 3, NAD HEENT:NC, Face symmetric CHEST: Respiratory excursions symmetric, diminished bilaterally but CTAB CV: RRR, no M/R/G ABD: Soft, NT/ND, BT present in all 4 quadrants, no organomegaly or masses EXTR:? Upper and lower extremities are cold to touch with mottling to the fingers and toes, greater than 10 second capillary refill noted to the bilateral great toes, heel wounds were visualized yesterday and revealed no significant drainage or erythema, there was packing noted in both lung SKIN: no rash NEURO: Alert and oriented x 3, nonfocal Objective Labs Result Diagrams: 01/04/22 06:31 01/04/22 06:31 Labs: Laboratory Results - last 24 hr 01/03/22 01/04/22 01/04/22 08:00 06:31 06:31 WBC 7.7 6.6 RBC 4.46 L 4.15 L Hgb 13.5 12.6 L Hct 40.5 L 37.1 L MCV 90.7 89.4 MCH 30.2 30.3 MCHC 33.3 33.9 RDW 15.7 H 15.8 H Plt Count 176 185 Neut % (Auto) 56.5 Not Reportable Lymph % (Auto) 22.5 L Not Reportable [place] % (Auto) 17.5 H Not Reportable Eos % (Auto) 2.8 Not Reportable Baso % (Auto) 0.7 Not Reportable Neut # (Auto) 4300 Lymph # (Auto) 1700 Not Reportable [place] # (Auto) 1300 H Not Reportable Eos # (Auto) 200 Baso # (Auto) 100 Not Reportable Total Counted 100 Seg Neutrophils % 64.0 Lymphocytes % (Manual) 27.0 Monocytes % (Manual) 7.0 Eosinophils % (Manual) 2.0 Neutrophils # (Manual) 4224 RBC Morphology Norm Sodium 138 Potassium 3.5 Chloride 103 Carbon Dioxide 26 BUN 44 H Creatinine 1.59 H Estimated GFR 42 L BUN/Creatinine Ratio 27.7 H Glucose 77 L Calcium 8.4 Magnesium 2.0 Total Bilirubin 0.8 AST 124 H ALT 87 H Alkaline Phosphatase 148 H Total Protein 5.4 L Albumin 2.8 L Globulin 2.6 Albumin/Globulin Ratio 1.1 PFSH Medical History Actinic keratosis Atrial fibrillation Balance disorder Basal cell carcinoma Bradycardia Cardiomyopathy Carpal tunnel syndrome Cataracts, bilateral Coronary artery disease Cyst, nasal sinus (1971) Degenerative joint disease involving multiple joints Edema noted on examination Erectile dysfunction Failure of right total hip arthroplasty Frailty syndrome in geriatric patient Frequent falls Glaucoma Heart murmur History of placement of internal cardiac defibrillator (04/2012) Hyperlipemia Hypertension Ischemic cardiomyopathy Macular degeneration Mixed hyperlipidemia Myocardial infarction (1996) Non-sustained ventricular tachycardia Peripheral neuropathy (02/2019) Recurrent ventricular tachycardia Squamous cell carcinoma Vitreous floaters of right eye Surgical History AICD (automatic cardioverter/defibrillator) present (~04/2012) History of carpal tunnel release (01/2006) History of Mohs surgery for squamous cell carcinoma of skin (2013) Hx of bilateral hip replacements (2008) Hx of cardiac catheterization (~1996) Hx of cardiac catheterization (07/06/11) Hx of cataract surgery Hx of coronary artery bypass graft S/P CABG x 2 (~2011) Family History Father Enlarged heart Stroke Mother Stroke Brother Cirrhosis Social History household members: spouse Smoking Status: Former smoker second hand exposure: No alcohol intake: former substance use type: does not use Discharge Plan Discharge Plan Patient Disposition: Home Provider Discharge Comment: Home with Hospice via nonemergent ambulance Discharge orders & Medications Prescriptions: Continued isosorbide mononitrate 60 mg tablet extended release 24 hr 30 mg PO DAILY vit C-vit M-[id number] [Ocuvite] [id number] ta-farf-ji-mg capsule 1 cap PO DAILY multivitamin [Multiple Vitamins] Tablet 1 tab PO DAILY Qty: 0 latanoprost 0.005 % drops 1 drp EYE-BOTH .HS PreserVision AREDS [id number] hujk-mb-wdfe capsule 1 cap PO .qd timolol 0.5 % drops 1 drp EYE-BOTH DAILY aspirin 81 mg tablet,delayed release (DR/EC) 81 mg PO DAILY (DME) Handicap placard Qty: 1 0RF Rx Instructions: Patient meets criteria for handicap placard. Please give him 2 placards mexiletine 150 mg capsule 150 mg PO Q8H metoprolol succinate 50 mg tablet extended release 24 hr 25 mg PO BID acetaminophen 325 mg tablet 650 mg PO Q6H PRN (Reason: fever or pain) Qty: 180 0RF bimatoprost 0.03 % drops 1 drp ophthalmic (eye) DAILY dorzolamide 2 % drops 1 drp EYE-BOTH TID omeprazole 20 mg capsule,delayed release(DR/EC) 20 mg PO DAILY Qty: 30 0RF Rx Instructions: take daily for 4 weeks senna 8.6 mg capsule 8.6 mg PO BEDTIME furosemide 20 mg tablet 20 mg PO Q OTHER DAY Rx Instructions: x3 days potassium chloride 10 mEq capsule, extended release 10 meq PO DAILY Qty: 3 0RF Rx Instructions: Take 1 tab every other day x3 days docusate sodium [Colace] 100 mg capsule 200 mg PO BID Qty: 360 3RF Rx Instructions: Take 2 caps each morning and evening, HOLD for diarrhea mineral oil [Fleet Mineral Oil] Enema 118 ml LA DAILY PRN (Reason: constipation) Qty: 133 2RF Rx Instructions: Instill 118mL rectally daily as needed for very hard stool furosemide 40 mg tablet 60 mg PO QAM Qty: 60 2RF doxycycline monohydrate 100 mg capsule 100 mg PO BID Entresto 49-51 mg tablet 1 tab PO BID Discontinued alpha lipoic acid 600 mg capsule 600 mg PO DAILY acetylcysteine [NAC] 600 mg capsule 600 mg PO DAILY Rx Instructions: administer with a meal cholecalciferol (vitamin D3) 25 mcg (1,000 unit) capsule 25 mcg PO DAILY atorvastatin 80 mg tablet 40 mg PO DAILY Follow up/Referrals: Jana Webb ARNP [Primary Care Provider] - Diet/Activity/Treatments Diet: Diet as Tolerated Activity: As tolerated Catheter: 2-way [place] Oxygen: 2lpm for comfort Discharge Data Primary Care Provider: Jana Webb Attending Provider: Cipriano Pearson VTE Deep Vein Thrombosis/Pulmonary Embolism Present on Admission: No
[2022-01-04 09:30] VITALS: BP 113/63; PULSE 70; RESP 20; TEMP 36.1; O2SAT 96
--- NOTE | 2022-01-04 10:45 | CM.DPC ---
DCP Discharge Hospice Per MD, pt remains medically stable to d/c home via BLS today and Hospice to start after discharge. CHAIM called [facility] and spoke to Zelda and confirmed they received the faxed referral from this weekend and Zelda already completed Hospice Info Visit with spouse via phone and discussed plan of pt d/c home today with DME to be delivered tomorrow and weight training instructor can start 01/06/22 in the home. CHAIM called spouse and confirmed above and she remains agreeable with plan but was hopeful pt could d/c tomorrow when DME delivered but acknowledges understanding that pt does not have any medical justification to remain in the hospital and agreeable with BLS transport around 1300 today. CHAIM called [facility] and scheduled BLS for 1300 to home and attached updated POLST and BLS form and facesheet and updated RN and placed on chart. CHAIM updated ICHTHYOLOGIST, hospitalist nocturnist physician, RN and MD. CHAIM faxed d/c summary to [facility] to review. Plan: Patient to d/c home today via [facility] at 1300 and [facility] to open on Tue and DME delivery scheduled for tomorrow 01/05/22. MAURISIO Epps
[2022-01-04] MEDS: FUROSEMIDE 40 MG/4 ML VIAL IV (10:50)
[2022-01-04] MEDS: ASPIRIN EC 81 MG TABLET PO (12:18)
[2022-01-04] MEDS: ATORVASTATIN 20 MG TABLET 40 MG PO (12:18)
[2022-01-04] MEDS: DOCUSATE 100 MG CAPSULE 200 MG PO (12:19)
[2022-01-04] MEDS: DOXYCYCLINE HYCLATE 100 MG TABLET PO (12:19)
[2022-01-04] MEDS: DORZOLAMIDE 2% OPHTH 10 ML 1 DROPS EYE-BOTH (12:19)
[2022-01-04] MEDS: CHOLECALCIFEROL (VITAMIN D3) 1,000 UNIT TABLET 1000 UNIT PO (12:19)
[2022-01-04] MEDS: ENOXAPARIN 40 MG/0.4 ML SYRINGE SUBCUT (12:19)
[2022-01-04] MEDS: ISOSORBIDE MONONITRATE ER 30 MG TABLET PO (12:20)
[2022-01-04] MEDS: METOPROLOL ER 50 MG TABLET 25 MG PO (12:20)
[2022-01-04] MEDS: TIMOLOL 0.5% OPHTH 1 DROPS EYE-BOTH (12:20)
[2022-01-04] MEDS: Sacubitril-Valsartan [Entresto] 24-26 mg tablet 1 EACH PO (12:20)
[2022-01-04] MEDS: MULTIVITAMIN 1 TABLET 1 TAB PO (12:20)
[2022-01-04] MEDS: VIT C/E/ZN/COPPR/LUTEIN/ZEAXAN CAPSULE 1 CAP PO (12:21)
--- NOTE | 2022-01-04 13:14 | PC.NURSE ---
Discharge Note Patient A&O, VSS, RA, no complaint of pain/discomfort. Patient/family agreeable to discharge plan. Report given to EMS crew, all questions/concerns addressed. All belongings packed and given to patient. Patient taken down via stretcher by EMS.
== END 2022-01-04 13:15 | disposition home or self-care (01) ==
LOC: ED 15:23 → AC 15:28
PROVIDERS: Admitting Provider Internal Medicine; Emergency Provider Emergency Medicine; PCP Nurse Practitioner; Referring Provider Emergency Medicine; Visit Provider Internal Medicine
DX: J96.01 Acute respiratory failure with hypoxia (principal); I11.0 Hypertensive heart disease with heart failure; I50.23 Acute on chronic systolic (congestive) heart failure; T68.XXXA Hypothermia, initial encounter; R74.01 Elevation of levels of liver transaminase levels; N17.9 Acute kidney failure, unspecified; I73.9 Peripheral vascular disease, unspecified; I25.5 Ischemic cardiomyopathy; K76.1 Chronic passive congestion of liver; L89.899 Pressure ulcer of other site, unspecified stage; Z95.0 Presence of cardiac pacemaker; Z20.822 Contact with and (suspected) exposure to COVID-19
CPT/HCPCS: 36415; 71045; 80053; 83605; 83735; 83880; 85007; 85025; 85610; 87635; 93005; 93306; 94760; 96372; 96374; 96376; 97110; 97163; 97530; 99284; C9803; G0378; J1650; J1940